=== PATIENT | male | born 1955 | race Caucasian/White ===

== ENCOUNTER 2024-01-12 12:15 | Inpatient (IN) | payer MEDICARE, OTHER, SELFPAY ==
[2024-01-12] VITALS (7 sets, daily range): BP systolic 106–166; BP diastolic 60–93; BMI 32.2
--- NOTE | 2024-01-12 09:38 | ED.GENMED ---
History of Present Illness
General
Chief Complaint: Musculo-Skeletal Complaint
Time Seen by Provider: 01/12/24 08:54
History of Present Illness
History of Present Illness:
Patient is a 68-year-old male with past medical history of asthma, tobacco use, hyperlipidemia, GERD, diabetes mellitus on insulin, and history of non-Hodgkin's lymphoma, here today for evaluation of an abnormal wound he has had along his left fifth
toe. He was seen by his flask fitter Dr. Arciniega more recently there was concern for osteomyelitis and they ultimately directed him to the emergency department for IV antibiotics, workup, and surgery. Patient has had no fevers. No drainage noted. He
has been able to ambulate. He has been n.p.o. since midnight.
Past History
Past History
ED Past Medical History: GERD, HTN, Hypercholesterolemia and NIDDM
Social History
Tobacco: Non-smoker
Personal:
Living: with family
Employment: Employed
Review of Systems
Review of Systems
All Other Systems: ROS reviewed and negative except as documented in HPI and ROS
Phy Exam
Physical Exam
Physical Exam:
GENERAL: Alert , in no apparent distress
EYE: pupils equal and reactive
NECK: Supple
NEUROLOGICAL: Alert and oriented, no focal neuro deficits
SKIN: Warm and dry, skin intact.
MUSCULOSKELETAL: Deep ulcerated mildly tender mildly erythematous wound along the dorsal aspect of the middle of the left fifth toe, there is no drainage noted, pulses not palpable but patient reports that this is chronic, extremity is normal in
temperature
PSYCH: Normal and appropriate interaction.
Course
Orders/Labs/Results
Orders:
Orders
01/12/24 09:41
CRP [C-Reactive Protein] Urgent
Complete Blood Count/With Diff Urgent
Comprehensive Metabolic Panel Urgent
ESR [Erythrocyte Sed Rate] Urgent
Lactic Acid Urgent
CR Foot - Left Min 3 Views Urgent
Comment:
Reason For Exam: 5th toe wound, osteo
01/12/24 09:45
Blood Culture Q30M
MADDY Source: Blood/Venous
Specimen Description:
01/12/24 09:50
Piperacillin/Tazo 3.375 Gram [Zosyn] 3.375 gram in 50 ml IV NOW
01/12/24 10:15
Blood Culture Q30M
MADDY Source: Blood/Venous
Specimen Description:
Vital Signs
Initial and Last Documented VS:
Initial Vital Signs
Temp Pulse Resp BP Pulse Ox
98.1 F 78 16 166/93 97
01/12/24 07:53 01/12/24 07:53 01/12/24 07:53 01/12/24 07:53 01/12/24 07:53
Last Documented Vital Signs
Temp Pulse Resp BP Pulse Ox
98.1 F 78 16 166/93 97
01/12/24 07:53 01/12/24 07:53 01/12/24 07:53 01/12/24 07:53 01/12/24 07:53
MDM/Problems Addressed
Differential Diagnosis Includes:
Patient is a 68-year-old male with past medical history of asthma, tobacco use, hyperlipidemia, GERD, diabetes mellitus on insulin, and history of non-Hodgkin's lymphoma, here today for evaluation of an abnormal wound he has had along his left fifth
toe. Overall, patient appears very well. Vital signs remarkable for a mildly elevated blood pressure. Physical examination described above. On examination the patient has a deep ulcerated mildly tender mildly erythematous wound along the dorsal
aspect of the middle of the left fifth toe. There is no drainage noted. Pulses not palpable but patient reports that this is chronic. Extremity is normal in temperature. We will consult podiatry, Dr. Arciniega. Will initiate workup and provide IV
antibiotics. Plan for admission. NPO.
01/12/2024 10:09: Case discussed with podiatry, Dr. Arciniega. Plan for operative intervention today. NPO. Will provide antibiotics with Zosyn. Case discussed with hospitalist, Dr. Suh.
*Critical Care Note
Total Time (30-74mins, 75-104mins- exclusive of procedures): Not Applicable
ED Attending Note
-
Portions of this chart may have been created with voice recognition software.� Occasional wrong word or��sound alike� substitutions may have occurred due to the inherent limitations of voice recognition software.
Discharge Plan
Departure
Patient Disposition: Admit
Date of Disposition: 01/12/24
Time of Disposition: 09:52
Admit to: Med/Surg
Admit to doctor: Dr. Suh
Presentation/result/management discussed w/ accepting MD/DO: Hospitalist
Patient with high blood pressure during this ER visit?: Yes
Condition: Fair
Covid-19: Not Applicable
Discharge Problem:
Open wound of fifth toe of left foot
Prescriptions:
No Action
multivitamin 1 EACH tablet
1 ea PO DAILY
aspirin 81 MG tablet,chewable
81 mg PO DAILY
esomeprazole magnesium [Nexium] 20 MG capsule,delayed release(DR/EC)
20 mg PO DAILYPRN PRN (Reason: GERD)
Eylea 2 MG/0.05 ML syringe
2 mg intravitreal Q8W
Jardiance 25 MG tablet
25 mg PO DAILY
cyclosporine [Restasis] 10 DROPS dropperette
1 drp BOTH EYES DAILY
rosuvastatin 10 MG tablet
20 mg PO QPM
losartan 50 mg Tablet
50 mg PO QPM
ketoconazole 2 % Shampoo
1 applic TOPICAL TUFR
tamsulosin [Flomax] 0.4 mg Capsule
0.4 mg PO DAILY
calcium polycarbophil [FiberCon] 625 mg Tablet
625 mg PO DAILY
docusate sodium [Colace] 100 mg Capsule
100 mg PO DAILY
Santyl 250 unit/gram Ointment
1 applic TOPICAL DAILY
finasteride 5 mg Tablet
5 mg PO DAILY
amoxicillin-pot clavulanate [Augmentin] 875-125 mg Tablet
1 tab PO BID
ICaps AREDS 4,296 mcg-226 mg-90 mg Capsule
1 cap PO DAILY
Patient Own Insulin Pump
0 unit SC .VIA HUMALOG
Referrals:
Piter Duffy MD [Family Provider] -
Interventions
Interventions:
*Risk Screen - Suicide Last Done: 01/12/24 07:54
*Neglect/Abuse Screening Last Done: 01/12/24 07:54
Discharge Date and Time
Print Language: TURKMEN
[2024-01-12 10:17] LABS: % Eosinophils 2.5 % (0-6); % Immature Granulocytes 0.6 % (0-0.5); % Lymphocytes 10.5 % (20.5-51.1); % Monocytes 7.3 % (1.7-9.3); % Neutrophils 78.1 % (42.2-75.2); Absolute Basophils 0.1 10^3/uL (0-0.2); Absolute Eosinophils 0.2 10^3/uL (0-0.7); Absolute Lymphocytes 0.8 10^3/uL (1.2-3.4); Absolute Monocytes 0.5 10^3/uL (0.1-0.6); Absolute Neutrophils 5.7 10^3/uL (1.4-6.5); Hematocrit 46.6 % (39.0-52.0); Hemoglobin 16.6 g/dL (13.0-18.0); Mean Corp Hgb Conc. 35.6 g/dL (33.0-37.0); Mean Corpuscular Hgb 33.9 pg (27.0-31.0); Mean Corpuscular Volume 95.3 fL (80.0-94.0); Mean Platelet Volume 9.6 fL (7.4-10.4); Nucleated Red Blood Cells % 0 % (-); Platelet Count 214 10^3/uL (130-400); Red Blood Cell Count 4.89 10^6/uL (4.70-6.10); Red Cell Dist. Width 12.2 % (11.5-14.5); White Blood Cell Count 7.3 10^3/uL (4.8-10.8)
[2024-01-12 10:34] LABS: Erythrocyte Sed Rate 20 mm/hour (0-20)
[2024-01-12 10:46] LABS: ALT (SGPT) 39 U/L (0-50); AST (SGOT) 35 U/L (17-59); Albumin 4.5 g/dl (3.5-5.0); Alkaline Phosphatase 90 U/L (38-126); Blood Urea Nitrogen 32 mg/dl (9-20); Calcium 9.5 mg/dl (8.4-10.2); Carbon Dioxide 24 mmol/L (22-30); Chloride 106 mmol/L (98-107); Glucose 183 mg/dl (70-99); Potassium 4.7 mmol/L (3.5-5.1); Sodium 142 mmol/L (135-145); Total Bilirubin 0.5 mg/dl (0.2-1.3); Total Protein 7.2 g/dl (6.3-8.2); eGFR > 60.00
[2024-01-12] MEDS: ZOSYN 50 IV ×3 (10:49→21:34)
--- NOTE | 2024-01-12 11:09 | W.PN.HOSP.TC ---
Today's Communication/Plan
-
for podiatric intervention on infected ulcer
Assessment / Plan
Assessment / Plan
Left foot 5th toe with ulcer and probable osteomyelitis
Diabetes (Type 2 IDDM)
onset age 41, IDDM since age 50
Hx of melanoma
2001, resected, [facility]
Bilateral peripheral neuropathy
Recent Rt hallux ulcer, now resolved
BPH
Tegaderm allergy
Hx of cigs
1ppd, quitting 8 yrs ago
P:reviewed with Dr. Vincent Arciniega
ID and Vasc consults
empiric Zosyn
Have requested copy of Bact C&S report be obtained
see dictated note
full code
Anticipated Discharge: > 48 hours
Subjective/Interval History
-
Date of Service: January 12, 2024
left 5th toes ulcer noted 8 days ago with evidence of infection
Objective Data
-
Labs:
Laboratory Results
01/12/24
10:08
WBC 7.3
Hgb 16.6
Hct 46.6
Plt Count 214
Sodium 142
Potassium 4.7
Chloride 106
Carbon Dioxide 24
BUN 32 H
Creatinine 1.2
Glucose 183 H
Calcium 9.5
Total Bilirubin 0.5
AST 35
ALT 39
Alkaline Phosphatase 90
Vital Signs:
Vital Signs
Temp Pulse Resp BP Pulse Ox
98.1 F 78 16 166/93 97
01/12/24 07:53 01/12/24 07:53 01/12/24 07:53 01/12/24 07:53 01/12/24 07:53
Review of Systems
-
History Source: Patient and Physician
Constitutional: Denies Fever
EENT: Reports No Symptoms Reported
Respiratory: Reports No Symptoms
Cardiac: Reports No Symptoms
Abdomen/GI: Reports No Symptoms
Musculoskeletal: Reports Other (bilateral peripheral neuropathy); Denies Joint Pain
Physical Exam
-
General: Well Developed, Well Nourished and No Apparent Distress
HEENT: Normocephalic, Atraumatic and Moist Mucous Membranes
Respiratory: Clear to Auscultation; Negative Wheezes, Rales or Rhonchi
Cardiac: Regular Rhythm and S1/S2
GI: Soft, Nontender and Nondistended
Musculoskeletal: No Clubbing, No Cyanosis, No Edema and Other (left 5th toe with ulcer, redness of toe, extending into distal dorsal foot. Peripheral pulses of feet not appreciated)
--- NOTE | 2024-01-12 12:14 | CON.VAS ---
Consultation
Consultation Request
Date/Time Consultation Performed: 01/12/24 1210
Requesting Provider: Seferino Kim MD
Performing Provider: Sugar Carlson NP-C for Junior Bennett MD
Reason for Consultation: Left fifth digit wound
Medical History
-
Chief Complaint: Left fifth digit wound concerning for osteomyelitis
History of Present Illness:
This is a 68-year-old male with significant past medical history for asthma, GERD, hypertension, hypercholesterolemia, diabetes, and non-Hodgkin's lymphoma who presents to [facility] ED at the discretion of his photographic hand developer Dr. Arciniega for ongoing left
foot fifth digit wound. Patient is unclear how wound developed he does endorse that he is a diabetic, but did initially notice it roughly 8 days ago. He followed up with his outpatient photographic hand developer Dr. Tito Arciniega, earlier in the week who
recommended urgent evaluation in the ED. However, at the time patient wished to delay evaluation until after Thanksgiving leading him to present to the ED today (01/12/2024). Patient denies fever, chills, nausea, vomiting, cough, malodorous
discharge and wound, and/or spreading of erythema. He denies prior vascular surgical intervention, or seeing a vascular surgeon. Denies claudication or rest pain. Denies recent trauma or illness. However, does endorse upcoming scheduled ERCP for
suspected pancreatic cyst on 02/05/2024.
Past Medical History
Past Medical History: Asthma, GERD, HTN, Hypercholesterolemia, IDDM and Other (Non-Hodgkin's lymphoma, pancreatic cyst)
Social History
Tobacco: Former Smoker (Former smoker for roughly 37 years, quit in 2014)
Personal:
Living: With Family
Employment: Employed
Allergies / Home Medications
Allergy/AdvReac Type Severity Reaction Status Date / Time
No Known Allergies Allergy Verified 03/09/22 13:29
�Medication �Instructions �Recorded �Confirmed �Type
aflibercept 2 mg/0.05 mL 2 mg intravitreal Q8W 03/03/20 01/12/24 History
intravitreal syringe (Eylea)
aspirin 81 mg chewable tablet 81 mg PO DAILY 03/03/20 01/12/24 History
cyclosporine 0.05 % eye drops in a 1 drp BOTH EYES DAILY 03/03/20 01/12/24 History
dropperette (Restasis)
empagliflozin 25 mg tablet 25 mg PO DAILY 03/03/20 01/12/24 History
(Jardiance)
esomeprazole magnesium 20 mg 20 mg PO DAILYPRN PRN GERD 03/03/20 01/12/24 History
capsule,delayed release (Nexium)
multivitamin 1 ea PO DAILY 03/03/20 01/12/24 History
rosuvastatin 10 mg tablet 20 mg PO QPM 03/03/20 01/12/24 History
Patient Own Insulin Pump 0 unit SC .VIA HUMALOG 01/12/24 01/12/24 History
amoxicillin 875 mg-potassium 1 tab PO BID 01/12/24 01/12/24 History
clavulanate 125 mg tablet
calcium polycarbophil 625 mg 625 mg PO DAILY 01/12/24 01/12/24 History
tablet (FiberCon)
collagenase clostridium histo. 250 1 applic topical DAILY LEFT 01/12/24 01/12/24 History
unit/gram topical ointment (Santyl) INFECTED TOES
docusate sodium 100 mg capsule 100 mg PO DAILY 01/12/24 01/12/24 History
(Colace)
finasteride 5 mg tablet 5 mg PO DAILY 01/12/24 01/12/24 History
ketoconazole 2 % shampoo 1 applic topical TUFR 01/12/24 01/12/24 History
losartan 50 mg tablet 50 mg PO QPM 01/12/24 01/12/24 History
tamsulosin 0.4 mg capsule (Flomax) 0.4 mg PO DAILY 01/12/24 01/12/24 History
vitamins A,C,A-wrvb-rmuafi 4,296 1 cap PO DAILY 01/12/24 01/12/24 History
mcg-226 mg-90 mg capsule
Review of Systems
-
History Source: Patient
Constitutional: Reports No Symptoms
EENT: Reports No Symptoms
Respiratory: Reports No Symptoms
Cardiac: Reports No Symptoms
Vascular: Denies Leg Pain / Claudication
Abdomen/GI: Reports No Symptoms
: Reports No Symptoms
Musculoskeletal: Reports No Symptoms
Skin: Reports Other (Left fifth digit infection with redness, swelling, and pain)
Neurological: Reports No Symptoms
Endocrine: Reports No Symptoms
Physical Exam
Vital Signs
Temp Pulse Resp BP Pulse Ox
98.1 F 78 16 166/93 97
01/12/24 07:53 01/12/24 07:53 01/12/24 07:53 01/12/24 07:53 01/12/24 07:53
Lab Results
01/12/24 10:08
01/12/24 10:08
Physical Exam
General: No Apparent Distress
HEENT: Normocephalic, Anicteric and Atraumatic
Respiratory: Non Labored Respirations
Cardiac: Negative JVD
GI: Soft, Non Tender and Non Distended
Musculoskeletal: No Edema
Skin: Warm and Other (Left fifth digit with erythema, and area of open skin, dry, non-malodorous, no evidence of purulent drainage, see picture in HPI)
Neuro: AO x 3
Pulses: Bilateral Femoral: +2, Left Dorsalis Pedis: Doppler, Right Dorsalis Pedis: +1, Bilateral Posterior Tibial: Doppler and Right Posterior Tibial: +1
Assessment / Plan
-
Assessment: 68-year-old male with roughly 8 days of infection at left foot fifth digit
Plan:
Suspect some degree of peripheral arterial disease given right lower extremity DP and PT palpable and left lower extremity distal pulses nonpalpable. Arterial duplex with IVANIA/TBI pending, if abnormal likely next step will be left lower extremity
angiogram with possible intervention. Will provide surgical plan pending results of noninvasive studies.
HPI, physical exam, and plan reviewed with attending Dr. Junior Bennett who agrees with plan.
--- NOTE | 2024-01-12 13:06 | CON.ID ---
Consultation
-
Date/Time Consultation Requested: 01/12/24 11:38
Date/Time Consultation Performed: 01/12/24 13:08
Requesting Provider: Dr Suh
Performing Provider: Dr Bowen
Reason for Consultation: osteomyelitis of left 5th toe
Chief Complaint / Past History
Chief Complaint
wound on left 5th toe
History of Present Illness
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 No fevers, chills or drainage.
Has a wound along left 5th toe x8 days, ulcer is deep, with erythema, no drainage. Wound began as a hammer-toe rubbing against foot - he couldnt feel it with neuropathy. He has been on Augmentin outpatient.
Since arrival here he has been afebrile, bp stable, wbc 7.3, hgb 16, plt 214, L shift is noted, na 142, cr 1.2 baseline 0.9, lactic acid 1.0, crp 17, foot xr: 'Fracture of the distal aspect of the proximal fifth phalanx, possibly a pathologic
fracture given suspicious for underlying osteomyelitis though no gross erosions appreciated.' IVANIA: severe stenosis of L popliteal artery, vascular surgery has been consulted, patient is on zosyn, ID is consulted for assistance with management.
Past History
Additional Past Medical History:
GERD, HTN, Hypercholesterolemia and NIDDM
Past Surgical History: None
Allergy History:
No Known Allergies Allergy (Verified 03/09/22 13:29)
Medications Reviewed: Yes
Current Antibiotics:
zosyn
Social History
Tobacco: Non-Smoker
Personal:
Living: With Family
Family History
Family History: Not Pertinent
Review of Systems
Review of Systems
General: Negative Fever or Chills
All systems: All other systems were reviewed and were negative
Vital Signs
Temp Pulse Resp BP Pulse Ox
98.1 F 78 16 166/93 97
01/12/24 07:53 01/12/24 07:53 01/12/24 07:53 01/12/24 07:53 01/12/24 07:53
Physical Exam
Physical Exam
Constitutional: No Acute Distress
Cardiovascular: Regular Rate and S1/S2; Negative Murmur or Rub
Pulmonary: Clear and Symmetric; Negative Wheezes, Rales or Rhonchi
Gastrointestinal: Soft, Non Tender, Non Distended and Normal Bowel Sounds
Skin: Warm and Dry; Negative Rash or Jaundice
Lab / Diagnostic Study Results
01/12/24 10:08
01/12/24 10:08
Abs Immat Gran (auto) 0.0 10^3/uL (0-0.05) 01/12/24 10:08
Absolute Neuts (auto) 5.7 10^3/uL (1.4-6.5) 01/12/24 10:08
Absolute Lymphs (auto) 0.8 10^3/uL (1.2-3.4) L 01/12/24 10:08
Absolute Monos (auto) 0.5 10^3/uL (0.1-0.6) 01/12/24 10:08
Absolute Basos (auto) 0.1 10^3/uL (0-0.2) 01/12/24 10:08
Immature Gran % 0.6 % (0-0.5) H 01/12/24 10:08
Neutrophils % 78.1 % (42.2-75.2) H 01/12/24 10:08
Lymphocytes % 10.5 % (20.5-51.1) L 01/12/24 10:08
Monocytes % 7.3 % (1.7-9.3) 01/12/24 10:08
Eosinophils % 2.5 % (0-6) 01/12/24 10:08
Basophils % 1.0 % (0-2) 01/12/24 10:08
ESR 20 mm/hour (0-20) 01/12/24 10:08
Lactic Acid 1.0 mmol/L (0.7-2.0) 01/12/24 10:08
C-Reactive Protein 17.60 mg/L (0.0-10.00) H 01/12/24 10:08
Microbiology Results
Micro:
01/12/24 10:49 Blood Culture - Pending
Blood/Venous
01/12/24 10:08 Blood Culture - Pending
Blood/Venous
Assessment / Plan
Diabetic Foot Infection
Possible Osteomyelitis
DM2 on insulin
PAD
- blood cultures x2 in progress
- s/p resection of the joint - grossly infected tissue sent for culture, bone sent for path
- a1c - recommend tight glucose control
- IVANIA with possible popliteal stenosis - for vascular surgery evaluation
- agree with zosyn
- follow clinically
Care Review
Plan reviewed with: Physician (Dr Arciniega)
[2024-01-12 13:49] LABS: Glucose - Point of Care 179 mg/dl (70-99)
--- NOTE | 2024-01-12 13:51 | W.PN.UPDATE ---
Update Note
Progress Note Update
PT SEEN IN RR
No pain
sleeping,. cft intact
dressing cdi
a/p s/p resection bone prox phal/middle phal---excsional debridement ulcer--stable
wound cleaned
path sent of bone, prox phal/mid phal
cont abx
minimal bleeding in Or, vasc consult ordered,
appreciate all input
wb on heel in sx shoe
will follow
[2024-01-12 16:26] LABS: Glucose - Point of Care 250 mg/dl (70-99)
[2024-01-12 16:26] LABS: Urine Albumin Trace (Neg - Trace); Urine Bilirubin Negative (Negative); Urine Character Clear (Clear); Urine Color Yellow; Urine Glucose 3+ (Negative); Urine Ketone Negative (Negative); Urine Leukocyte Negative (Negative); Urine Nitrite Negative (Negative); Urine Occult Blood Negative (Negative); Urine Specific Gravity 1.015 (<1.030); Urine Urobilinogen Negative (Neg - 1+)
--- NOTE | 2024-01-12 17:43 | PTCARENOTE ---
Pt admitted to rm 317-1 from PACU. VSS, denies pain, ambulated to bed from stretcher upon admission. Dressing intact to left foot, orders to not remove dressing. Patient instructed on POC, room and call suresh. Verbalized understanding of all
instructions. Med list reviewed - patient's concerns clarified with Dr. Suh (pt's Jardiance had been autosubstituted for Farxiga) - Farxiga put on hold and patient instructed to bring in home jardiance. Insulin pump applied by patient and set up.
Dexcom in place as well - patient informed we will continue to do accuchecks while in hospital.
[2024-01-12] MEDS: PATIENT'S OWN INSULIN PUMP 6 UNITS SC (18:27)
[2024-01-12] MEDS: COZAAR 50 MG PO (18:27)
[2024-01-12] MEDS: CRESTOR 20 MG PO (18:27)
--- NOTE | 2024-01-12 18:58 | PTCARENOTE ---
basal rate of insulin pump 2.6 units from 5AM-9AM, 1.4 units from 9AM-midnight, 1.5 units midnight -5AM
[2024-01-12] MEDS: HEPARIN 5000 UNITS SC (21:34)
[2024-01-12 21:46] LABS: Glucose - Point of Care 304 mg/dl (70-99)
[2024-01-12] MEDS: PATIENT'S OWN INSULIN PUMP 4 UNITS SC (21:46)
[2024-01-13] MEDS: ZOSYN 50 IV ×2 (04:34→10:24)
[2024-01-13 06:00] VITALS: BMI 32.1
[2024-01-13 07:10] VITALS: BP 125/55
[2024-01-13 07:49] LABS: Hemoglobin 14.5 g/dL (13.0-18.0); Mean Corp Hgb Conc. 34.5 g/dL (33.0-37.0); Mean Corpuscular Hgb 33.1 pg (27.0-31.0); Mean Corpuscular Volume 95.9 fL (80.0-94.0); Platelet Count 223 10^3/uL (130-400); Red Blood Cell Count 4.38 10^6/uL (4.70-6.10); Red Cell Dist. Width 12.1 % (11.5-14.5); White Blood Cell Count 9.2 10^3/uL (4.8-10.8)
[2024-01-13 08:07] LABS: Glucose - Point of Care 136 mg/dl (70-99)
--- NOTE | 2024-01-13 08:22 | W.PN.VS ---
Today's Communication / Plan
-
Seen and assessed with Dr. Bennett
Assessment/Plan
-
Osteomyelitis left fifth toe
Plan:
-Arteriogram Monday
-N.p.o. for Monday morning
Subjective Data
-
Date of Service: January 13, 2024
Patient seen at bedside today with Dr. Bennett. No events overnight.
Objective Data
-
Vital Signs
Temp Pulse Resp BP Pulse Ox
97.4 F 71 18 125/55 97
01/13/24 07:10 01/13/24 07:10 01/13/24 07:10 01/13/24 07:10 01/13/24 07:10
Intake and Output
01/12/24 01/13/24 01/14/24
06:59 06:59 06:59
Other:
Number of approximated MODERATE 1
amounts of urine
Lab Results
01/13/24 06:39
Calcium 9.5 mg/dl (8.4-10.2) 01/12/24 10:08
Total Bilirubin 0.5 mg/dl (0.2-1.3) 01/12/24 10:08
AST 35 U/L (17-59) 01/12/24 10:08
ALT 39 U/L (0-50) 01/12/24 10:08
Alkaline Phosphatase 90 U/L (38-126) 01/12/24 10:08
Total Protein 7.2 g/dl (6.3-8.2) 01/12/24 10:08
Albumin 4.5 g/dl (3.5-5.0) 01/12/24 10:08
Physical Exam
-
AAOx3
No tachypnea
No tachycardia
Abdomen soft
Foot site wrapped in operative dressing from surgical procedure with Dr. Arciniega
[2024-01-13 08:23] LABS: Blood Urea Nitrogen 34 mg/dl (9-20); Calcium 8.9 mg/dl (8.4-10.2); Carbon Dioxide 25 mmol/L (22-30); Chloride 104 mmol/L (98-107); Estimated Creatinine Clearance 57 ml/min; Glucose 148 mg/dl (70-99); HDL Cholesterol 45 mg/dl; LDL Cholesterol, Calculated 67 mg/dl; Potassium 4.5 mmol/L (3.5-5.1); Sodium 139 mmol/L (135-145); Total Cholesterol 133 mg/dl (50-199); Triglyceride 109 mg/dl (10-149); Very Low Density Lipoprotein 21 mg/dl (0-30); eGFR 55.09
[2024-01-13] MEDS: PROSCAR 5 MG PO (08:44)
[2024-01-13] MEDS: FLOMAX 0.4 MG PO (08:44)
[2024-01-13] MEDS: HEPARIN 5000 UNITS SC ×2 (08:44→21:56)
[2024-01-13] MEDS: LOW STRENGTH ASPIRIN 81 MG PO (08:44)
[2024-01-13] MEDS: COLACE 100 MG PO (08:44)
[2024-01-13] MEDS: OCUVITE SOFTGEL 1 CAP PO (08:44)
[2024-01-13] MEDS: THERAGRAN 1 TABLET PO (08:44)
[2024-01-13] MEDS: FIBERCON 625 MG PO (08:44)
[2024-01-13] MEDS: RESTASIS 0.05% OPHTHALMIC EMULSION 1 DROPS BOTH EYES (08:45)
--- NOTE | 2024-01-13 09:49 | W.PN.UPDATE ---
Update Note
Progress Note Update
pt seen at bedside post op day 1
no pain
no f/c/ns
dressing cdi with some blood through bandages
cft slightly decreased to 5th toe, toe is warm, supple skin
wbc 9.3
C&S prelim no wbc, no organisms
C&S from office in chart, only prelim
a/p s/p excisional debridement bone/wound left foot 5th toe---stable
PAD,agram for monday
explained to pt if perfusion restored, surgical cure/amp toe would be beneficial
pt understands now why I wanted him to come in to hospital days ago
packing pulled, slight bleeding
bandages applied
sx shoe for wb
will watch toe, if shows increased signs of devitalization, can amp after revasc
cont abx\\
appreciate all input
--- NOTE | 2024-01-13 09:57 | W.PN.HOSP.TC ---
Today's Communication/Plan
-
Arteriogram of rt foot for Monday
continue IV abx
Assessment / Plan
Assessment / Plan
Left foot 5th toe with ulcer and probable osteomyelitis
underwent surgical intervention 01/11
Diabetes (Type 2 IDDM)
onset age 41, IDDM since age 50
ASPVD
consulted Vasc Surg. Input appreciated
for planned arteriogram on Monday
Underwent Arterial Doppler: 1. Right ankle-brachial index remains within the normal range at 1.11. The right toe brachial index is normal at 0.85. No flow-limiting right lower extremity arterial stenosis is identified.
2. Left ankle brachial index of 0.65 is significantly decreased from 1.03 prior. The toe brachial index is 0.35, decreased from 0.66 prior. There is a severe stenosis of the left popliteal artery with associated dampening of the distal waveforms.
Hx of melanoma
2001, resected, [facility]
Bilateral peripheral neuropathy
Recent Rt hallux ulcer, now resolved
BPH
Tegaderm allergy
Hx of cigs
1ppd, quitting 8 yrs ago
P:reviewed with Dr. Vincent Arciniega
ID and Vasc consults appreciated
empiric Zosyn
full code
Anticipated Discharge: > 48 hours
Subjective/Interval History
-
Date of Service: January 13, 2024
Awake, alert, conversant
Objective Data
-
Labs:
Laboratory Results
01/13/24
06:39
WBC 9.2
Hgb 14.5
Hct 42.0
Plt Count 223
Sodium 139
Potassium 4.5
Chloride 104
Carbon Dioxide 25
BUN 34 H
Creatinine 1.4 H
Glucose 148 H
Calcium 8.9
Vital Signs:
Vital Signs
Temp Pulse Resp BP Pulse Ox
97.4 F 71 18 125/55 97
01/13/24 07:10 01/13/24 07:10 01/13/24 07:10 01/13/24 07:10 01/13/24 07:10
Review of Systems
-
History Source: Patient and Physician
Constitutional: Denies Fever
EENT: Reports No Symptoms Reported
Respiratory: Reports No Symptoms
Cardiac: Reports No Symptoms
Abdomen/GI: Reports No Symptoms
Musculoskeletal: Reports Other (bilateral peripheral neuropathy); Denies Joint Pain
Physical Exam
-
General: Well Developed, Well Nourished and No Apparent Distress
HEENT: Normocephalic, Atraumatic and Moist Mucous Membranes
Respiratory: Clear to Auscultation; Negative Wheezes, Rales or Rhonchi
Cardiac: Regular Rhythm and S1/S2
GI: Soft, Nontender and Nondistended
Musculoskeletal: No Clubbing, No Cyanosis, No Edema and Other (left 5th toe with ulcer, redness of toe, extending into distal dorsal foot. Peripheral pulses of feet not appreciated on admission, foot now surgically wrapped)
--- NOTE | 2024-01-13 09:59 | CM ---
CM following re: discharge planning.
Reviewed pt's chart, met with pt.
Pt is a 68 year old male, admitted with primary dx of Osteomyelitis left 5th toe, s/p excisional debridement bone/wound left foot 5th toe. Per Vascular surgery, OR Monday for Arteriogram
Pt reports he lives alone in a 2SH, 2 steps to enter, has a cat, has 3 supportive children, supportive SO for 10 years. Pt reports his PCP is his POA. 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
VN in the past for IV antibiotic management.
PCP: Piter Duffy III
Pharmacy: [facility].
D/C plan: home with anticipated no needs.
CM will follow with discharge plan updates as hospitalization progresses
[2024-01-13] MEDS: PATIENT'S OWN INSULIN PUMP 1 UNITS SC (10:53)
[2024-01-13 11:02] LABS: Glycohemoglobin (HgbA1c) 8.8 % (4.0-5.6)
--- NOTE | 2024-01-13 12:16 | W.PN.ID1 ---
Date of Service
Date of Service: January 13, 2024
Today's Communication
mrsa screen
c/w zosyn
Assessment / Plan
Diabetic Foot Infection
Possible Osteomyelitis
DM2 on insulin - poor control
PAD
- 01/03 outpatient wound culture on paper chart: moderate PSA, no sensi; gram stain mod GNR and rare GPC in pairs/clusters
- blood cultures x2 in progress
- MRSA nasal screen today
- s/p resection of the joint - grossly infected tissue sent for culture in progress, bone sent for path
- a1c 8.8 - recommend tight glucose control
- for arteriogram monday
- agree with zosyn
- follow clinically
Chief Complaint
-: Other (diabetic foot infection)
Subjective / Review of Systems
afebrile
bp stable
outpatient cultures on paper chart
Vital Signs / Physical Exam
Vital Signs
Vital Signs
Temp Pulse Resp BP Pulse Ox
97.4 F 71 18 125/55 97
01/13/24 07:10 01/13/24 07:10 01/13/24 07:10 01/13/24 07:10 01/13/24 07:10
Physical Exam
Constitutional: No Acute Distress
Cardiovascular: Regular Rate and S1/S2; Negative Murmur or Rub
Pulmonary: Clear and Symmetric; Negative Wheezes or Rales
Gastrointestinal: Soft, Non Tender, Non Distended and Normal Bowel Sounds
Skin: Warm and Dry; Negative Rash or Jaundice
Wound: Other (dressing clean, dry, intact)
Objective Data
Lab Data
Lab Results
01/13/24 06:39
01/13/24 06:39
ESR 20 mm/hour (0-20) 01/12/24 10:08
Estimated Creat Clear 57 ml/min 01/13/24 06:39
Lactic Acid 1.0 mmol/L (0.7-2.0) 01/12/24 10:08
Total Bilirubin 0.5 mg/dl (0.2-1.3) 01/12/24 10:08
AST 35 U/L (17-59) 01/12/24 10:08
ALT 39 U/L (0-50) 01/12/24 10:08
Alkaline Phosphatase 90 U/L (38-126) 01/12/24 10:08
C-Reactive Protein 17.60 mg/L (0.0-10.00) H 01/12/24 10:08
Most recent labs reviewed.
Micro Results:
01/12/24 10:49 Blood Culture - Preliminary
Blood/Venous No Growth in 24 hours- Final report to follow
01/12/24 10:08 Blood Culture - Preliminary
Blood/Venous No Growth in 24 hours- Final report to follow
01/12/24 14:00 Anaerobic Culture - Preliminary
Toe Culture pending. Anaerobic cultures are examined after 3
days incubation. Additional information to follow.
01/12/24 14:00 Wound Culture - Preliminary
Toe Gram Stain - Preliminary
01/12/24 14:00 Tissue Culture - Preliminary
Bone Gram Stain - Preliminary
Care Review
Plan reviewed with: Physician (Dr Hendrickson - outpatient cultures )
[2024-01-13 12:20] LABS: Glucose - Point of Care 149 mg/dl (70-99)
[2024-01-13] MEDS: ZOSYN 100 IV ×2 (14:27→21:56)
[2024-01-13] MEDS: PATIENT'S OWN INSULIN PUMP 9 UNITS SC (14:45)
[2024-01-13 15:07] VITALS: BP 129/61
[2024-01-13 16:38] LABS: Glucose - Point of Care 169 mg/dl (70-99)
[2024-01-13] MEDS: CRESTOR 20 MG PO (17:49)
[2024-01-13] MEDS: COZAAR 50 MG PO (17:49)
[2024-01-13] MEDS: PATIENT'S OWN INSULIN PUMP 6.95 UNITS SC (20:57)
[2024-01-13 21:28] LABS: Glucose - Point of Care 214 mg/dl (70-99)
--- NOTE | 2024-01-13 22:22 | VATNOTE ---
PT REQUESTED ASSESSMENT OF IV SITE IN LW. PT REPORTS HX OF SENSITIVITY TO TSM. SITE RD WITH SKIN PEP PRIOR TO STANDARD IV SITE DRSG. PT REPORTS IMMEDIATE RELIEF. VAT TO MONITOR.
[2024-01-13 23:00] VITALS: BP 124/62
[2024-01-13] MEDS: PATIENT'S OWN INSULIN PUMP SC (23:49)
[2024-01-14] MEDS: MORPHINE SULFATE 2 MG IV ×2 (00:04→22:11)
[2024-01-14 00:18] VITALS: BP 124/62
[2024-01-14] MEDS: ZOSYN 100 IV ×4 (02:56→20:01)
--- NOTE | 2024-01-14 07:12 | W.PN.VS ---
Today's Communication / Plan
-
plan for OR khushi am
NPO post midnight
Assessment/Plan
-
Osteomyelitis left fifth toe
Plan:
-Arteriogram Monday
-N.p.o. for Monday
Subjective Data
-
Date of Service: January 14, 2024
Objective Data
-
Vital Signs
Temp Pulse Resp BP Pulse Ox
98.2 F 67 18 124/62 97
01/13/24 23:00 01/13/24 23:00 01/13/24 23:00 01/13/24 23:00 01/13/24 23:00
Intake and Output
01/13/24 01/14/24 01/15/24
06:59 06:59 06:59
Intake Total 1560 / 1560
Balance 1560 / 1560
Intake:
Oral fluids 1560 / 1560
Other:
Number of approximated MODERATE 1 4
amounts of urine
Calcium 8.9 mg/dl (8.4-10.2) 01/13/24 06:39
Total Bilirubin 0.5 mg/dl (0.2-1.3) 01/12/24 10:08
AST 35 U/L (17-59) 01/12/24 10:08
ALT 39 U/L (0-50) 01/12/24 10:08
Alkaline Phosphatase 90 U/L (38-126) 01/12/24 10:08
Total Protein 7.2 g/dl (6.3-8.2) 01/12/24 10:08
Albumin 4.5 g/dl (3.5-5.0) 01/12/24 10:08
[2024-01-14 07:30] VITALS: BP 137/69
[2024-01-14 07:51] LABS: Blood Urea Nitrogen 32 mg/dl (9-20); Calcium 8.6 mg/dl (8.4-10.2); Carbon Dioxide 22 mmol/L (22-30); Chloride 107 mmol/L (98-107); Estimated Creatinine Clearance 62 ml/min; Glucose 146 mg/dl (70-99); Potassium 4.4 mmol/L (3.5-5.1); Sodium 140 mmol/L (135-145); eGFR > 60.00
[2024-01-14 07:52] LABS: % Basophils 0.6 % (0-2); % Eosinophils 3.2 % (0-6); % Immature Granulocytes 0.4 % (0-0.5); % Lymphocytes 17.1 % (20.5-51.1); % Monocytes 7.7 % (1.7-9.3); Absolute Eosinophils 0.2 10^3/uL (0-0.7); Absolute Lymphocytes 1.2 10^3/uL (1.2-3.4); Absolute Monocytes 0.5 10^3/uL (0.1-0.6); Absolute Neutrophils 4.8 10^3/uL (1.4-6.5); Hematocrit 41.6 % (39.0-52.0); Hemoglobin 14.6 g/dL (13.0-18.0); Mean Corp Hgb Conc. 35.1 g/dL (33.0-37.0); Mean Platelet Volume 10.1 fL (7.4-10.4); Nucleated Red Blood Cells % 0 % (-); Platelet Count 209 10^3/uL (130-400); Red Blood Cell Count 4.29 10^6/uL (4.70-6.10); Red Cell Dist. Width 12.5 % (11.5-14.5); White Blood Cell Count 6.8 10^3/uL (4.8-10.8)
[2024-01-14 08:34] LABS: Glucose - Point of Care 175 mg/dl (70-99)
[2024-01-14] MEDS: PATIENT'S OWN INSULIN PUMP 3.75 UNITS SC (08:36)
[2024-01-14] MEDS: COLACE 100 MG PO (08:39)
[2024-01-14] MEDS: FLOMAX 0.4 MG PO (08:39)
[2024-01-14] MEDS: LOW STRENGTH ASPIRIN 81 MG PO (08:39)
[2024-01-14] MEDS: THERAGRAN 1 TABLET PO (08:39)
[2024-01-14] MEDS: FIBERCON 625 MG PO (08:39)
[2024-01-14] MEDS: PROSCAR 5 MG PO (08:39)
[2024-01-14] MEDS: RESTASIS 0.05% OPHTHALMIC EMULSION 1 DROPS BOTH EYES (08:40)
[2024-01-14] MEDS: OCUVITE SOFTGEL 1 CAP PO (08:40)
[2024-01-14] MEDS: HEPARIN 5000 UNITS SC ×2 (08:40→20:02)
--- NOTE | 2024-01-14 09:12 | W.PN.HOSP.TC ---
Addendum entered and electronically signed by Lamine Suh MD 01/14/24 17:21:
CKD3, IVF with planned angiogram with concern for dye load associated with renal issues
Original Note:
Today's Communication/Plan
-
Angiogram tomorrow
continue Zosyn
Assessment / Plan
Assessment / Plan
Left foot 5th toe with ulcer and probable osteomyelitis
underwent surgical intervention 01/11. Culturette was obtained from wound on 01/03 and sent to [facility]. Requested report that shows 2 organisms, 1 is pseudomonas the other appears to be Gm+C. Attempted to call lab today on their [phone] number
and recording states they are not open until Monday-Monday. Will need to call tomorrow for update on bacterial sensitivity. For now continue Zosyn
WBC 9.2-->6.8
Tissue Cx from 01/11 GnB, await identification
Diabetes (Type 2 IDDM)
onset age 41, IDDM since age 50
a1c 8.8%
glu 149-214
ASPVD
consulted Vasc Surg. Input appreciated
for planned arteriogram on Monday
Underwent Arterial Doppler: 1. Right ankle-brachial index remains within the normal range at 1.11. The right toe brachial index is normal at 0.85. No flow-limiting right lower extremity arterial stenosis is identified.
2. Left ankle brachial index of 0.65 is significantly decreased from 1.03 prior. The toe brachial index is 0.35, decreased from 0.66 prior. There is a severe stenosis of the left popliteal artery with associated dampening of the distal waveforms.
Hx of melanoma
2002, resected, [place]
Hx of Non Hodgkins Lymphoma
as per pt, JEREMIE
Bilateral peripheral neuropathy
Recent Rt hallux ulcer, now resolved
BPH
Tegaderm allergy
Hx of cigs
1ppd, quitting 8 yrs ago
Pancreatic 'Cyst' for scheduled ERCP in 1 month
P:reviewed with Dr. Vincent Arciniega
ID and Vasc consults appreciated
empiric Zosyn
full code
Anticipated Discharge: > 48 hours
Subjective/Interval History
-
Date of Service: January 14, 2024
Awake, alert, conversant
Objective Data
-
Labs:
Laboratory Results
01/14/24
06:46
WBC 6.8
Hgb 14.6
Hct 41.6
Plt Count 209
Sodium 140
Potassium 4.4
Chloride 107
Carbon Dioxide 22
BUN 32 H
Creatinine 1.3
Glucose 146 H
Calcium 8.6
Vital Signs:
Vital Signs
Temp Pulse Resp BP Pulse Ox
97.6 F 68 16 137/69 96
01/14/24 07:30 01/14/24 07:30 01/14/24 07:30 01/14/24 07:30 01/14/24 07:30
I&O
01/13/24 01/14/24 01/15/24
06:59 06:59 06:59
Intake Total 1560 / 1560
Balance 1560 / 1560
Review of Systems
-
History Source: Patient and Physician
Constitutional: Denies Fever
EENT: Reports No Symptoms Reported
Respiratory: Reports No Symptoms
Cardiac: Reports No Symptoms
Abdomen/GI: Reports No Symptoms
Musculoskeletal: Reports Other (bilateral peripheral neuropathy); Denies Joint Pain
Neuro: Reports Other (bilateral peripheral neuropathy, but can feel pain sensation at times)
Physical Exam
-
General: Well Developed, Well Nourished and No Apparent Distress
HEENT: Normocephalic, Atraumatic and Moist Mucous Membranes
Respiratory: Clear to Auscultation; Negative Wheezes, Rales or Rhonchi
Cardiac: Regular Rhythm and S1/S2
GI: Soft, Nontender and Nondistended
Musculoskeletal: No Clubbing, No Cyanosis, No Edema and Other (left 5th toe with ulcer, redness of toe, extending into distal dorsal foot. Peripheral pulses of feet not appreciated on admission, foot now surgically wrapped)
--- NOTE | 2024-01-14 10:39 | W.PN.UPDATE ---
Update Note
Progress Note Update
pt seen at bedside
Had pain last night in arch, none now
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
dressing cdi
vasc + pad, agram tomorrow, toe improved, warm, better cft and pink
derm suturs intact, packing pulled, no pus
no odor
path pending, C&s gram neg, pseudomonas wound and bone
a/p s/p excisional debridement bone /ulcer left 5th toe---stable, improved, toe warm, cft better
cont abx
agram tomorrow
[2024-01-14 11:48] LABS: Glucose - Point of Care 178 mg/dl (70-99)
[2024-01-14] MEDS: PATIENT'S OWN INSULIN PUMP 7.75 UNITS SC (14:35)
[2024-01-14 15:50] VITALS: BP 149/81
[2024-01-14] MEDS: PATIENT'S OWN INSULIN PUMP 5.2 UNITS SC (17:34)
[2024-01-14] MEDS: COZAAR 50 MG PO (17:36)
[2024-01-14] MEDS: CRESTOR 20 MG PO (17:36)
[2024-01-14 18:53] LABS: Glucose - Point of Care 153 mg/dl (70-99)
[2024-01-14 21:26] LABS: Glucose - Point of Care 252 mg/dl (70-99)
[2024-01-14 22:50] VITALS: BP 133/72
[2024-01-14] MEDS: PATIENT'S OWN INSULIN PUMP SC (23:32)
[2024-01-15] VITALS (15 sets, daily range): BP systolic 123–171; BP diastolic 68–94
[2024-01-15] MEDS: ZOSYN 100 IV ×2 (02:39→08:07)
[2024-01-15] MEDS: NSS 1000 IV ×2 (06:34→18:31)
[2024-01-15 07:09] LABS: Hematocrit 42.6 % (39.0-52.0); Hemoglobin 14.8 g/dL (13.0-18.0); Mean Corp Hgb Conc. 34.7 g/dL (33.0-37.0); Mean Corpuscular Hgb 33.6 pg (27.0-31.0); Mean Corpuscular Volume 96.8 fL (80.0-94.0); Mean Platelet Volume 9.7 fL (7.4-10.4); Platelet Count 195 10^3/uL (130-400); Red Cell Dist. Width 12.5 % (11.5-14.5); White Blood Cell Count 6.5 10^3/uL (4.8-10.8)
[2024-01-15 07:17] LABS: APTT 28.4 Sec (23.4-35.0); INR 0.97; PT 13.2 Sec (11.4-14.6)
[2024-01-15 07:18] LABS: Glucose - Point of Care 157 mg/dl (70-99)
[2024-01-15 07:22] LABS: Blood Urea Nitrogen 27 mg/dl (9-20); Calcium 8.8 mg/dl (8.4-10.2); Carbon Dioxide 27 mmol/L (22-30); Chloride 105 mmol/L (98-107); Estimated Creatinine Clearance 57 ml/min; Glucose 144 mg/dl (70-99); Potassium 4.6 mmol/L (3.5-5.1); Sodium 140 mmol/L (135-145); eGFR 55.09
[2024-01-15] MEDS: RESTASIS 0.05% OPHTHALMIC EMULSION 1 DROPS BOTH EYES (08:07)
[2024-01-15] MEDS: FIBERCON 625 MG PO (08:07)
[2024-01-15] MEDS: OCUVITE SOFTGEL 1 CAP PO (08:07)
[2024-01-15] MEDS: FLOMAX 0.4 MG PO (08:07)
[2024-01-15] MEDS: THERAGRAN 1 TABLET PO (08:07)
[2024-01-15] MEDS: COLACE 100 MG PO (08:08)
[2024-01-15] MEDS: LOW STRENGTH ASPIRIN PO (08:08)
[2024-01-15] MEDS: PROSCAR 5 MG PO (08:08)
[2024-01-15] MEDS: PATIENT'S OWN INSULIN PUMP 1.4 UNITS SC ×2 (08:13→12:35)
--- NOTE | 2024-01-15 08:27 | W.PN.HOSP.TC ---
Today's Communication/Plan
-
IV Abx. Arteriogram
Assessment / Plan
Assessment / Plan
Physical exam:
General: Well Developed, Well Nourished and No Apparent Distress
HEENT: Normocephalic, Atraumatic and Moist Mucous Membranes
Respiratory: Clear to Auscultation; Negative Wheezes, Rales or Rhonchi
Cardiac: Regular Rhythm and S1/S2
GI: Soft, Nontender and Nondistended
Musculoskeletal: Wrapped up left foot-postop findings. No Clubbing, No Cyanosis and No Edema
Neuro: Awake, Alert and Oriented
Psych: Calm
A/P:
Left fifth toe osteomyelitis:
Status post excisional debridement ulcer/bone left fifth toe on 01/11
Blood cultures no growth
Wound growing Pseudomonas aeruginosa and CONS
Continue IV Zosyn
Plan for arteriogram today by vascular surgery
Diabetes mellitus type 2:
On insulin pump
On
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
Last hemoglobin A1c 8.8
CKD stage III:
Creatinine 1.4 today
Continue IV fluid
Creatinine 1.2 on 01/11
Hypertension:
Continue losartan 50 mg p.o. daily
Hyperlipidemia:
Continue rosuvastatin 20 mg p.o. nightly
BPH:
Continue Proscar 5 mg p.o. daily and tamsulosin 0.4 mg p.o. daily
Other PMHx:
Peripheral neuropathy
History of non-Hodgkin lymphoma
History of Melanoma
History Pancreatic cyst (w/u pending OP)
DVT prophylaxis:
Heparin SQ
Code status:
Full code
Anticipated Discharge: > 48 hours
Subjective/Interval History
-
Date of Service: January 15, 2024
Reports some discomfort on and off from left lower extremity. No chest pain or shortness of breath. Afebrile
Objective Data
-
Labs:
Laboratory Results
01/15/24
06:33
WBC 6.5
Hgb 14.8
Hct 42.6
Plt Count 195
PT 13.2
INR 0.97
APTT 28.4
Sodium 140
Potassium 4.6
Chloride 105
Carbon Dioxide 27
BUN 27 H
Creatinine 1.4 H
Glucose 144 H
Calcium 8.8
Vital Signs:
Vital Signs
Temp Pulse Resp BP Pulse Ox
97.5 F 69 16 134/68 98
01/15/24 07:50 01/15/24 07:50 01/15/24 07:50 01/15/24 07:50 01/15/24 07:50
I&O
01/14/24 01/15/24 01/16/24
06:59 06:59 06:59
Intake Total 1560 / 1560 900 / 1380 480 / 480
Balance 1560 / 1560 900 / 1380 480 / 480
[2024-01-15] MEDS: LOW STRENGTH ASPIRIN 81 MG PO (09:28)
[2024-01-15] MEDS: HEPARIN SC ×2 (09:28→21:11)
[2024-01-15 11:43] LABS: Glucose - Point of Care 137 mg/dl (70-99)
--- NOTE | 2024-01-15 12:10 | W.PN.ID1 ---
Date of Service
Date of Service: January 15, 2024
Today's Communication
- for arteriogram today
- start ciprofloxacin/metronidazole, plan 7 more days of rx provided that pathology has negative margins as expected
- follow clinically
Assessment / Plan
Diabetic Foot Infection
Possible Osteomyelitis
DM2 on insulin - poor control
PAD
- 01/03 outpatient wound culture on paper chart: moderate PSA, no sensi; gram stain mod GNR and rare GPC in pairs/clusters
- 01/11 wound and tissue cultures: P aeruginosa (R zosyn, S ciprofloxacin), CONS
- blood cultures x2 in progress - NGTD
- MRSA nasal screen negative
- s/p resection of the joint - grossly infected tissue sent for culture in progress, bone sent for path
- a1c 8.8 - recommend tight glucose control
- for arteriogram today
- start ciprofloxacin/metronidazole, plan 7 more days of rx provided that pathology has negative margins as expected
- QTc today and tomorrow am
- follow clinically
Non-billable note: patient not in the room on rounds. Chart reviewed and antibiotics adjusted for cultures.
Chief Complaint
-: Other (diabetic foot infection)
Subjective / Review of Systems
Non-billable note: patient not in the room on rounds. Chart reviewed and antibiotics adjusted for cultures.
afebrile
bp stable
no events overnight
Vital Signs / Physical Exam
Vital Signs
Vital Signs
Temp Pulse Resp BP Pulse Ox
97.5 F 69 16 134/68 98
01/15/24 07:50 01/15/24 07:50 01/15/24 07:50 01/15/24 07:50 01/15/24 07:50
Objective Data
Lab Data
Lab Results
01/15/24 06:33
01/15/24 06:33
ESR 20 mm/hour (0-20) 01/12/24 10:08
PT 13.2 Sec (11.4-14.6) 01/15/24 06:33
INR 0.97 01/15/24 06:33
APTT 28.4 Sec (23.4-35.0) 01/15/24 06:33
Estimated Creat Clear 57 ml/min 01/15/24 06:33
Lactic Acid 1.0 mmol/L (0.7-2.0) 01/12/24 10:08
Total Bilirubin 0.5 mg/dl (0.2-1.3) 01/12/24 10:08
AST 35 U/L (17-59) 01/12/24 10:08
ALT 39 U/L (0-50) 01/12/24 10:08
Alkaline Phosphatase 90 U/L (38-126) 01/12/24 10:08
C-Reactive Protein 17.60 mg/L (0.0-10.00) H 01/12/24 10:08
Most recent labs reviewed.
Tissue Culture Preliminary 01/15/24-0949
Rare Pseudomonas aeruginosa
Few [place]agul[place] [id number] on 01/14/24 at 0846 [place] [id number]
Organism 1 Pseudomonas aeruginosa
1. Pseudomonas aeruginosa
M.I.C. RX
--------- ---
Aztreonam <=4 S
Cefepime <=2 S
Ceftazidime 16 R
Ciprofloxacin <=0.25 S
Meropenem <=1 S
Piperacillin/Tazobactam 32 I
Tobramycin <=2 S
Micro Results:
01/12/24 10:49 Blood Culture - Preliminary
Blood/Venous No Growth in 72 hours- Final report to follow
01/12/24 10:08 Blood Culture - Preliminary
Blood/Venous No Growth in 72 hours- Final report to follow
01/12/24 14:00 Anaerobic Culture - Preliminary
Toe Culture pending. Anaerobic cultures are examined after 3
days incubation. Additional information to follow.
01/12/24 14:00 Wound Culture - Preliminary
Toe Pseudomonas aeruginosa
Coagulase neg. staphylococcus
Gram Stain - Preliminary
01/12/24 14:00 Tissue Culture - Preliminary
Bone Pseudomonas aeruginosa
Coagulase neg. staphylococcus
Gram Stain - Preliminary
01/13/24 13:51 Nasal Screen MRSA (PCR) - Final
Nose MRSA not detected - performed by PCR methodology.
--- NOTE | 2024-01-15 12:35 | PN.DE.MGMTRT ---
Insulin Management
- -
01/15/2024: Insulin pump Management Consult
68 year old male w/PMH: HTN, HLD, GERD, Non-Hodgkin lymphoma, T2DM, Neuropathy who presented with left 5th toe osteomyelitis. Pt reports that he follows with [facility] Dr. Waters, was last seen 2 months ago. He uses Omnipod pump with
CGM-Dexcom G6, Humalog insulin and Jardiance 25mg daily.
A1C 8.8%, Cr 1.4, eGFR 55.09. Discussed current A1C with pt, he states A1C has gotten worse since dx of NHL and stopping Trulicity.
Pt awake, alert, oriented, sitting up in chair, pleasant, offers no complaints, able to discuss diabetes mgt.
Currently NPO for Arteriogram today, Farxiga on hold.
01/13 Premeal blood sugar range 153 to 178, FBG 144 (V), 157 POC.
Pump is currently in Automated mode, at following settings:
Basal 12am - 5am 1.55 units
5am - 9am 2.6 units
9am - 12am 1.4 units
ICR 1:8
ICF 1:40
Total 24 hr basal 52 .15 units.
Changes Pod Q2 days, due to be changed tomorrow. Just applied new sensor and still in warming phase.
Pt able to independently manage his pump without difficulties. Will make no changes to pump settings at this time.
Will cont to follow and adjust settings if needed.
Diabetes History
- -
Type of Diabetes: 2 requiring insulin
Pre-Admission Diabetes Regimen
01/15/24
06:33
Creatinine 1.4 H
Lab Results
Hemoglobin A1c 8.8 % (4.0-5.6) H 01/13/24 06:39
Insulin Pump Settings
IP Diabetes Regimen
01/14/24 01/14/24 01/15/24
18:51 21:24 06:33
Glucose 144 H
POC Glucose 153 H 252 H
12/02/24 12/02/24
07:17 11:43
Glucose
POC Glucose 157 H 137 H
Patient Education
--- NOTE | 2024-01-15 14:32 | W.SUR.PREOP ---
Pre-Operative Surgical Note
-
I have examined this patient prior to the performance of the scheduled procedure.
The patient's condition is unchanged from the time of the current History and
Physical and the patient is able to undergo the scheduled procedure.
[2024-01-15 16:36] LABS: Glucose - Point of Care 118 mg/dl (70-99)
--- NOTE | 2024-01-15 16:54 | W.IMMPOSTOP ---
Surgical Immed Post Op Note
-
Primary Surgeon: Dr. Hayder Hector III, MD
Assisting Surgeon: Bang Fields MD, PhD (PGY-2)
Pre-op Diagnosis: Peripheral arterial disease of the left lower extremity with non healing wounds
Post-op Diagnosis: Peripheral arterial disease of the left lower extremity with non healing wounds
Procedure Performed: Diagnostic arteriogram, balloon angioplasty of left popliteal artery and left TP trunk, perclose device
Anesthesia Type: MAC
Specimen / Cultures: None
Estimated Blood Loss: Minimal
Complications: None
Operative Findings: The patient was brought to the OR and placed in the supine position. Following anesthesia, the patient was prepped and draped in usual sterile fashion. Fluoroscopy was used to identify the inferior and superior boundaries of the
femoral head and these were marked at the skin level. Ultrasound guidance was used to identify the right MAGNETO REPAIRER. Local sedation was given at the proposed puncture site. Micropuncture kit was used to access the right MAGNETO REPAIRER. This was upsized to a 5 [place]
sheath over a Desino wire. A carl's hook catheter was advanced into the abdominal aorta over a guidewire. Diagnostic arteriogram showed a patent ilio-femoral system bilaterally, patent left SFA, above knee popliteal artery, an area of focal
stenosis at the behind/below knee popliteal artery. Distally, there was 2 vessel run off (AT and PT) with an area of focal stenosis at the proximal TP trunk. The PT and peroneal filled retrograde through collaterals which reconstituted in the lower
leg. The AT supplied the DP and the reconstituted PT flowed into the foot. Within the foot itself there was diffuse small vessel disease. A drug coated balloon angioplasty was performed at the area of popliteal artery stenosis, this profiled well.
Then a second balloon angioplasty was performed at the site of stenosis at the proximal TP trunk. Completion arteriogram showed brisk flow through the treated segment of the popliteal artery, with antegrade flow predominating to the tibial vessels.
Distally, there continued to be 2 vessel run off (AT and PT) -- now PT flowed antegrade -- with some sluggish filling of the proximal and mid peroneal segments. The sheaths and wires were removed and a perclose device was used to close the
arteriotomy. The patient was transported to the PACU in stable condition with doppler signals noted in his DP and PT on the left foot.
--- NOTE | 2024-01-15 16:57 | CM ---
Reviewed chart. Patient for sx today. Will review progress post op.
Plan: Case management will continue to follow and assist with discharge planning. Will review indications from medical staff once patient has returned from sx.
[2024-01-15] MEDS: PLAVIX 300 MG PO (17:03)
--- NOTE | 2024-01-15 17:06 | OR.RPT ---
Operative Report
Operative Report
Date of Operation: January 15, 2024
Pre Op Diagnosis: Chronic limb threatening ischemia with tissue loss left foot
Post Op Diagnosis: Chronic limb threatening ischemia with tissue loss left foot
Procedure:
1.) Drug-coated balloon angioplasty of left below-knee popliteal artery stenosis (4 mm x 80 mm Lutonix DCB)
2.) Balloon angioplasty of left tibioperoneal trunk stenosis (3 mm x 40 mm angioplasty balloon)
3.) Diagnostic aortobiiliac arteriogram
4.) Diagnostic left lower extremity arteriogram
5.) Ultrasound-guided percutaneous access to the right common femoral artery
6.) Pro-glide closure to right femoral artery access
Surgeon: Hayder Hector III, MD
General Dentist: Bang Fields MD PhD, PGY2
Anesthesia: Sedation with local
Fluoroscopy:
18 min
178 mGy
55 Gy.cm2
Complications: None
Estimated Blood Loss: Less than 20 cc
History and Indications for Procedure: 68-year-old male with limb threatening ischemia of the left lower extremity manifested by left foot wound. Abnormal preoperative lower extremity arterial studies. He was brought to the operating room for
arteriogram and possible endovascular intervention
Procedure in Detail: Jaycob Gmoez was correctly identified and placed supine on the operating table. After adequate induction of anesthesia the bilateral groins were prepped and draped in the usual sterile fashion. A timeout was performed with
the nursing and anesthesia staff confirming the patient's identity as well as the nature and laterality of the procedure.
The right common femoral artery was identified under ultrasound guidance. The artery was patent. The superior and inferior aspects of the femoral head were identified with radiographic guidance and marked at the skin level. The proposed puncture
site was infiltrated with local anesthesia. Under ultrasound guidance we accessed the right common femoral artery with a micropuncture needle and upsized to a 5 Fr sheath over a Bentson wire. The wire and a [employer] hook flush catheter were
advanced into the distal abdominal aorta and a diagnostic aorto-biiliac arteriogram was performed:
AORTO-ILIAC ARTERIOGRAM:
Aorta: Patent with no stenosis identified
Right common iliac artery: Patent with no stenosis identified
Right external iliac artery: Patent with no stenosis identified
Left common iliac artery: Patent with no stenosis identified
Left external iliac artery: Patent with no stenosis identified
Under roadmap guidance using a Glidewire and the [employer] hook catheter we selected the left common iliac artery and then the external iliac artery. A catheter was tracked up and over the aortic bifurcation and placed in the distal external iliac
artery. A diagnostic left lower extremity arteriogram was then performed which demonstrated the following:
LEFT LOWER EXTREMITY:
Common femoral artery: Patent with no stenosis identified
Profunda femoral artery: Patent with no stenosis identified
Superficial femoral artery: Patent with no stenosis identified
Popliteal artery: Patent. Focal smooth high-grade stenosis involving the below-knee popliteal artery.
Anterior tibial artery: Patent. Focal areas of moderate stenosis in the mid anterior tibial artery.
Tibioperoneal trunk: Patent with proximal stenosis identified
Peroneal artery: Patent proximally but occluded shortly thereafter
Posterior tibial artery: Patent. No significant stenosis identified
ENDOVASCULAR INTERVENTION: Systemic heparin was administered. Exchanged out for a 6 Fr 45 cm sheath over a Storq wire. Selected the superficial femoral artery and then the popliteal artery under roadmap guidance with Quickcross catheter and
glidewire. The popliteal artery stenosis was crossed with a Glidewire and Quickcross. The wire and catheter were advanced into the tibioperoneal trunk and subtraction angio confirmed proper position in the true lumen. Exchanged out for a V18 wire. A
4 mm x 80 mm angioplasty balloon was placed across the popliteal artery stenosis under roadmap guidance. The balloon was inflated to nominal pressure, held in place for 3 minutes and then deflated and removed over the wire. Subsequent arteriogram
demonstrated excellent technical result with a widely patent popliteal artery and no residual stenosis identified.
I then focused my attention on the tibioperoneal trunk stenosis. The wire was exchanged out for a 0.[address] wire. Under roadmap guidance a 3 mm x 40 mm angioplasty balloon was placed across the tibioperoneal trunk stenosis. The balloon was
inflated to nominal pressure and held in place for 2 minutes. The balloon was slowly deflated and removed over the wire.
COMPLETION ARTERIOGRAM: Excellent technical result. Brisk flow through a widely patent popliteal artery with no residual stenosis identified. Patent tibioperoneal trunk with no significant residual stenosis identified. Tibial outflow through the
anterior tibial artery and posterior tibial artery. The anterior tibial artery continued across the ankle to form the dorsalis pedis artery. The posterior tibial artery continued across the ankle to form plantar branches. Small vessel disease was
identified in the foot.
Satisfied with this result we concluded the procedure. Protamine was administered. The sheath tip was pulled back into the right external iliac artery. The wire was removed and a Oobafit wire was replaced. A single Pro-glide closure device was
positioned and deployed across the right femoral artery access. The knots were secured and hemostasis was achieved. Additional manual pressure was held over the puncture site for 5 minutes. A sterile dressing was applied.
The patient tolerated the procedure well and was taken to the recovery area in stable condition.
Attestation: I was present and responsible for the entire procedure.
Signed:
Hayder Hector III, MD
[facility] Vascular Surgery
[phone] (rthp)
[2024-01-15] MEDS: PATIENT'S OWN INSULIN PUMP SC (17:40)
[2024-01-15] MEDS: COZAAR 50 MG PO (18:29)
[2024-01-15] MEDS: CRESTOR 20 MG PO (18:29)
[2024-01-15] MEDS: CIPRO 750 MG PO (21:11)
[2024-01-15] MEDS: FLAGYL 500 MG PO (21:11)
[2024-01-15 21:31] LABS: Glucose - Point of Care 222 mg/dl (70-99)
[2024-01-15] MEDS: PATIENT'S OWN INSULIN PUMP 0.1 UNITS SC (21:41)
[2024-01-16 03:00] VITALS: BP 130/75
--- NOTE | 2024-01-16 07:46 | W.PN.HOSP.TC ---
Addendum entered and electronically signed by Jaziel Akhtar MD 01/16/24 15:58:
Left lower extremity nonhealing wounds and left fifth toe osteomyelitis etiology multifactorial, Diabetes Mellitus and PAD
Original Note:
Today's Communication/Plan
-
Antibiotics. Discharge planning
Assessment / Plan
Assessment / Plan
Physical exam:
General: Well Developed, Well Nourished and No Apparent Distress
HEENT: Normocephalic, Atraumatic and Moist Mucous Membranes
Respiratory: Clear to Auscultation; Negative Wheezes, Rales or Rhonchi
Cardiac: Regular Rhythm and S1/S2
GI: Soft, Nontender and Nondistended
Musculoskeletal: Wrapped up left foot-postop findings. No Clubbing, No Cyanosis and No Edema
Neuro: Awake, Alert and Oriented
Psych: Calm
A/P:
Left fifth toe osteomyelitis:
Status post excisional debridement ulcer/bone left fifth toe on 01/11
Blood cultures no growth
Wound and bone cultures growing Pseudomonas aeruginosa and CONS
Changed to IV vancomycin and meropenem per ID
Cleared for discharge by vascular surgery and plate shear operator.
Plan to discharge as soon as cleared by ID.
Critically limb ischemia of left lower extremity:
Status post angiogram on 01/14 and status post angioplasty by vascular surgeon
Diabetes mellitus type 2:
On insulin pump
On
Diabetes SKILLS AUDITOR input appreciated
Last hemoglobin A1c 8.8
CKD stage III:
Creatinine 1.4--> 1.1 today
Stop IV fluid
Creatinine 1.2 on 01/11
Hypertension:
Continue losartan 50 mg p.o. daily
Hyperlipidemia:
Continue rosuvastatin 20 mg p.o. nightly
BPH:
Continue Proscar 5 mg p.o. daily and tamsulosin 0.4 mg p.o. daily
Other PMHx:
Peripheral neuropathy
History of non-Hodgkin lymphoma
History of Melanoma
History Pancreatic cyst (w/u pending OP)
DVT prophylaxis:
Heparin SQ
Code status:
Full code
Anticipated Discharge: Today
Subjective/Interval History
-
Date of Service: January 16, 2024
Patient denies any nausea vomiting or diarrhea. Afebrile.
Objective Data
-
Labs:
Laboratory Results
01/16/24
07:26
WBC Pending
Hgb Pending
Hct Pending
Plt Count Pending
Sodium Pending
Potassium Pending
Chloride Pending
Carbon Dioxide Pending
BUN Pending
Creatinine Pending
Glucose Pending
Calcium Pending
Vital Signs:
Vital Signs
Temp Pulse Resp BP Pulse Ox
97.4 F 90 16 130/75 98
01/16/24 03:00 01/16/24 03:00 01/16/24 03:00 01/16/24 03:00 01/16/24 03:00
I&O
01/15/24 01/16/24 01/17/24
06:59 06:59 06:59
Intake Total 900 / 1380 1300 / 1300
Output Total 600 / 600
Balance 900 / 1380 700 / 700
--- NOTE | 2024-01-16 07:46 | W.PN.UPDATE ---
Update Note
Progress Note Update
pt seen for fu left foot
s/p angio lle, increased BF, palpable pulses left foot warm
cft wnl
toes warm
a/p s/pdebridement left 5th toe---stable
rec cont abx 4-6 weeks, only naya for clean margin from path would be to amp toe
pt would like to save toe and watch as outpt, rec abx 4-6 weeks ( assume possible residual osteo, minimal)
toe stable
wb in sx shoe
right foot stable
will debride callus at bdide
stable for dc from pod standpt---pt needs daily bandages changes vna
[2024-01-16 08:02] VITALS: BP 166/91
[2024-01-16 08:32] LABS: Glucose - Point of Care 104 mg/dl (70-99)
[2024-01-16 08:36] LABS: % Basophils 0.5 % (0-2); % Eosinophils 0.5 % (0-6); % Immature Granulocytes 0.4 % (0-0.5); % Lymphocytes 12.6 % (20.5-51.1); Absolute Lymphocytes 1.1 10^3/uL (1.2-3.4); Absolute Monocytes 0.7 10^3/uL (0.1-0.6); Absolute Neutrophils 6.5 10^3/uL (1.4-6.5); Hematocrit 47.2 % (39.0-52.0); Hemoglobin 16.1 g/dL (13.0-18.0); Mean Corp Hgb Conc. 34.1 g/dL (33.0-37.0); Mean Corpuscular Hgb 32.9 pg (27.0-31.0); Mean Corpuscular Volume 96.5 fL (80.0-94.0); Nucleated Red Blood Cells % 0 % (-); Platelet Count 227 10^3/uL (130-400); Red Blood Cell Count 4.89 10^6/uL (4.70-6.10); Red Cell Dist. Width 12.2 % (11.5-14.5); White Blood Cell Count 8.4 10^3/uL (4.8-10.8)
--- NOTE | 2024-01-16 08:37 | W.PN.UPDATE ---
Update Note
Progress Note Update
I d/w ID , rec 4-6 weeks abx , they will make arrangements, rec IV
pt understands may need further sx on toe, but can manage closely as outpt
pt can wb in sx shoe
keep dry, change bandages daily when dc
path to see if most proximal aspect or proximal phal is clean, may not be able to
right foot --stable, pre ulcer, subdermal bleeding and debrided at bedside, wound closed, no soi
[2024-01-16] MEDS: NSS IV (08:40)
--- NOTE | 2024-01-16 08:54 | W.PN.VS ---
Addendum entered and electronically signed by Hayder Hector III, MD 01/16/24 10:59:
This patient was seen and examined with SUNNY Barba. I agree with the history and physical exam as well as the assessment and plan. I have the following additions:
Dr. Arciniega at bedside with us
Successful endovascular intervention yesterday
Left foot warm
Dual antiplatelet therapy with aspirin/plavix
Okay for discharge from our perspective
Follow-up with me in the office in 2 to 4 weeks for evaluation and postprocedure IVANIA/TBI/duplex
Signed:
Hayder Hector III, MD
[facility] Vascular Surgery
[phone] (cppx)
Original Note:
Today's Communication / Plan
-
Seen and assessed with Dr. Hector
Assessment/Plan
-
POD1 Drug-coated balloon angioplasty of left below-knee popliteal artery stenosis (4 mm x 80 mm Lutonix DCB)
Balloon angioplasty of left tibioperoneal trunk stenosis (3 mm x 40 mm angioplasty balloon)
Plan:
- Okay for discharge from vascular standpoint
- Will add follow-up to chart
Subjective Data
-
Date of Service: January 16, 2024
Patient stated bedside visit with Dr. Hector. No events overnight. Groin site stable. No complaints at this time.
Objective Data
-
Vital Signs
Temp Pulse Resp BP Pulse Ox
98.0 F 89 16 166/91 98
01/16/24 08:02 01/16/24 08:02 01/16/24 08:02 01/16/24 08:02 01/16/24 08:02
Intake and Output
01/15/24 01/16/24 01/17/24
06:59 06:59 06:59
Intake Total 900 / 1380 1300 / 1300
Output Total 600 / 600
Balance 900 / 1380 700 / 700
Intake:
Oral fluids 900 / 1380 1200 / 1200
IV fluids (Total) 100 / 100
normal saline 100 / 100
Output:
Urine, Voided 600 / 600
Other:
Number of approximated MODERATE 4 2
amounts of urine
Lab Results
01/16/24 07:26
Calcium 8.8 mg/dl (8.4-10.2) 01/15/24 06:33
Total Bilirubin 0.5 mg/dl (0.2-1.3) 01/12/24 10:08
AST 35 U/L (17-59) 01/12/24 10:08
ALT 39 U/L (0-50) 01/12/24 10:08
Alkaline Phosphatase 90 U/L (38-126) 01/12/24 10:08
Total Protein 7.2 g/dl (6.3-8.2) 01/12/24 10:08
Albumin 4.5 g/dl (3.5-5.0) 01/12/24 10:08
Physical Exam
-
AAOx3
No tachypnea
No tachycardia
Abdomen soft
Groin site stable, Clean, dry, intact
[2024-01-16 08:56] LABS: Blood Urea Nitrogen 24 mg/dl (9-20); Calcium 8.9 mg/dl (8.4-10.2); Carbon Dioxide 19 mmol/L (22-30); Chloride 107 mmol/L (98-107); Estimated Creatinine Clearance 73 ml/min; Glucose 98 mg/dl (70-99); Potassium 4.8 mmol/L (3.5-5.1); Sodium 140 mmol/L (135-145); eGFR > 60.00
[2024-01-16] MEDS: PATIENT'S OWN INSULIN PUMP 1.4 UNITS SC ×2 (09:21→11:31)
[2024-01-16] MEDS: OCUVITE SOFTGEL 1 CAP PO (09:21)
[2024-01-16] MEDS: THERAGRAN 1 TABLET PO (09:22)
[2024-01-16] MEDS: CIPRO 750 MG PO (09:22)
[2024-01-16] MEDS: COLACE 100 MG PO (09:22)
[2024-01-16] MEDS: FIBERCON 625 MG PO (09:22)
[2024-01-16] MEDS: RESTASIS 0.05% OPHTHALMIC EMULSION 1 DROPS BOTH EYES (09:22)
[2024-01-16] MEDS: FLAGYL 500 MG PO (09:22)
[2024-01-16] MEDS: PROSCAR 5 MG PO (09:22)
[2024-01-16] MEDS: FLOMAX 0.4 MG PO (09:23)
[2024-01-16] MEDS: PLAVIX 75 MG PO (09:23)
[2024-01-16] MEDS: LOW STRENGTH ASPIRIN 81 MG PO (09:23)
[2024-01-16] MEDS: HEPARIN 5000 UNITS SC ×2 (09:23→21:19)
--- NOTE | 2024-01-16 10:08 | W.PN.ID1 ---
Addendum entered and electronically signed by Amanda Bowen MD 01/16/24 16:28:
chart reviewed CONS sensitivities not back yet, hopefully tomorrow
Original Note:
Date of Service
Date of Service: January 16, 2024
Today's Communication
- start vancomycin, meropenem
- place picc
- preliminary script given to briefcase sewer, will be finalized when sensi on CONS available tomorrow or perhaps later today
- follow clinically
Assessment / Plan
Diabetic Foot Infection
Possible Osteomyelitis
DM2 on insulin - poor control
PAD
- 01/03 outpatient wound culture on paper chart: moderate PSA, no sensi; gram stain mod GNR and rare GPC in pairs/clusters
- 01/11 wound and tissue cultures: P aeruginosa (R zosyn, S ciprofloxacin), CONS
- lab will check final ID and sensi on the CONS
- blood cultures x2 in progress - NGTD
- MRSA nasal screen negative
- s/p resection of the joint - grossly infected tissue sent for culture in progress, margin sent for path
- a1c 8.8 - recommend tight glucose control
- start vancomycin, meropenem
- place picc
- preliminary script given to briefcase sewer, will be finalized when sensi on CONS available tomorrow or perhaps later today; I will reach out to briefcase sewer when finalized
- follow clinically; follow up in my clinic next week
Chief Complaint
-: Other (diabetic foot infection)
Subjective / Review of Systems
afebrile
bp stable
discussed with Dr Arciniega
Vital Signs / Physical Exam
Vital Signs
Vital Signs
Temp Pulse Resp BP Pulse Ox
98.0 F 89 16 166/91 98
01/16/24 08:02 01/16/24 08:02 01/16/24 08:02 01/16/24 08:02 01/16/24 08:02
Physical Exam
Constitutional: No Acute Distress and Chronically Ill
Cardiovascular: Regular Rate and S1/S2; Negative Murmur or Rub
Pulmonary: Clear and Symmetric; Negative Wheezes or Rales
Gastrointestinal: Soft, Non Tender, Non Distended and Normal Bowel Sounds
Skin: Warm and Dry; Negative Rash or Jaundice
Wound: Other (dressing take down deferred at patient request)
Objective Data
Lab Data
Lab Results
01/16/24 07:26
01/16/24 07:26
ESR 20 mm/hour (0-20) 01/12/24 10:08
PT 13.2 Sec (11.4-14.6) 01/15/24 06:33
INR 0.97 01/15/24 06:33
APTT 28.4 Sec (23.4-35.0) 01/15/24 06:33
Estimated Creat Clear 73 ml/min 01/16/24 07:26
Lactic Acid 1.0 mmol/L (0.7-2.0) 01/12/24 10:08
Total Bilirubin 0.5 mg/dl (0.2-1.3) 01/12/24 10:08
AST 35 U/L (17-59) 01/12/24 10:08
ALT 39 U/L (0-50) 01/12/24 10:08
Alkaline Phosphatase 90 U/L (38-126) 01/12/24 10:08
C-Reactive Protein 17.60 mg/L (0.0-10.00) H 01/12/24 10:08
Most recent labs reviewed.
Tissue Culture Preliminary 01/15/24-948
Rare Pseudomonas aeruginosa
Few Coagul[place] [id number] on 01/14/24 at 0846 [place] [id number]
Organism 1 Pseudomonas aeruginosa
1. Pseudomonas aeruginosa
M.I.C. RX
--------- ---
Aztreonam <=4 S
Cefepime <=2 S
Ceftazidime 16 R
Ciprofloxacin <=0.25 S
Meropenem <=1 S
Piperacillin/Tazobactam 32 I
Tobramycin <=2 S
Micro Results:
01/12/24 14:00 Anaerobic Culture - Preliminary
Toe NO ANAEROBES ISOLATED
01/12/24 10:49 Blood Culture - Preliminary
Blood/Venous No Growth in 72 hours- Final report to follow
01/12/24 10:08 Blood Culture - Preliminary
Blood/Venous No Growth in 72 hours- Final report to follow
01/12/24 14:00 Wound Culture - Preliminary
Toe Pseudomonas aeruginosa
Coagulase neg. staphylococcus
Gram Stain - Preliminary
01/12/24 14:00 Tissue Culture - Preliminary
Bone Pseudomonas aeruginosa
Coagulase neg. staphylococcus
Gram Stain - Preliminary
01/13/24 13:51 Nasal Screen MRSA (PCR) - Final
Nose MRSA not detected - performed by PCR methodology.
--- NOTE | 2024-01-16 10:09 | PN.DE.MGMTRT ---
Insulin Management
- -
01/16/2024: Insulin pump Management F/U:
68 year old male w/PMH: HTN, HLD, GERD, Non-Hodgkin lymphoma, T2DM, Neuropathy who presented with left 5th toe osteomyelitis. Pt reports that he follows with [facility] Dr. Waters, was last seen 2 months ago. He uses Omnipod pump with
CGM-Dexcom G6, Humalog insulin and Jardiance 25mg daily.
A1C 8.8%, Cr 1.4, eGFR 55.09. Discussed current A1C with pt, he states A1C has gotten worse since dx of NHL and stopping Trulicity.
Pt awake, alert, oriented, sitting up in chair, pleasant, offers no complaints, able to discuss diabetes mgt.
Pump is currently in Automated mode, at following settings:
Basal 12am - 5am 1.55 units
5am - 9am 2.6 units
9am - 12am 1.4 units
ICR 1:8
ICF 1:30
Target 130
Total 24 hr basal 52 .15 units.
12/ Premeal blood sugar range 118 to 157, FBG 98 (V), 104 POC.
Will resume Farxiga(on Jardiance at home) 10 mg daily and make no changes to current pump settings.
Changes Pod Q2 days, due to be changed today.
Pt able to independently manage his pump without difficulties. Will make no changes to pump settings at this time.
Will cont to follow and adjust settings if needed. Resume Jardiance upon discharge home.
Diabetes History
- -
Type of Diabetes: 2 requiring insulin
Pre-Admission Diabetes Regimen
01/16/24
07:26
Creatinine 1.1
Lab Results
Hemoglobin A1c 8.8 % (4.0-5.6) H 01/13/24 06:39
Insulin Pump Settings
IP Diabetes Regimen
01/15/24 01/15/24 01/15/24
11:43 16:35 21:29
Glucose
POC Glucose 137 H 118 H 222 H
01/16/24 01/16/24
07:26 08:31
Glucose 98
POC Glucose 104 H
Patient Education
--- NOTE | 2024-01-16 10:22 | PHA.VAN.IN ---
Addendum entered and electronically signed by Mikki Sanchez Lola 01/16/24 15:47:
BUN & SCR ordered per protocol
Original Note:
Assessment
- Assessment
Renal Function: Unknown baseline
Plan
- Plan
Initial / Loading Dose: 1000mg x1 now then 1000mg at 1800 in lieu of loading dose
Maintenance Regimen: dosing by level
Monitoring: random 01/16 0600
Unclear baseline renal function
Estimated CrCl predicting Q12H interval
Will give 1000mg x2 doses today and obtain level in AM to assess approximately 12H level
Pharmacokinetics Vancomycin I
- -
Patient Age: 68
Patient Sex: Male
Vancomycin Day #: 1
Indication: Bone And Joint
Requesting Provider: Dr. Bowen
Pertinent Antimicrobial Allergies:
NKDA
Height / Weight:
Height 5 ft 8 in
Actual Weight 95.663 kg
Pertinent Past Medical History: BMI ~32
- Vital Signs / Lab Results
Temp Pulse Resp BP Pulse Ox
98.0 F 89 16 166/91 98
01/16/24 08:02 01/16/24 08:02 01/16/24 08:02 01/16/24 08:02 01/16/24 08:02
Lab Results - Hematology
01/14/24 01/15/24 01/16/24
06:46 06:33 07:26
WBC 6.8 6.5 8.4
Lab Results - Chemistry
01/14/24 01/15/24 01/16/24
06:46 06:33 07:26
BUN 32 H 27 H 24 H
Creatinine 1.3 1.4 H 1.1
Estimated Creat Clear 62 57 73
Microbiology Results
01/12/24 10:08 Blood Culture - Preliminary
Blood/Venous No Growth in 4 days- Final report to follow
01/12/24 14:00 Anaerobic Culture - Preliminary
Toe NO ANAEROBES ISOLATED
01/12/24 10:49 Blood Culture - Preliminary
Blood/Venous No Growth in 72 hours- Final report to follow
01/12/24 14:00 Wound Culture - Preliminary
Toe Pseudomonas aeruginosa
Coagulase neg. staphylococcus
Gram Stain - Preliminary
01/12/24 14:00 Tissue Culture - Preliminary
Bone Pseudomonas aeruginosa
Coagulase neg. staphylococcus
Gram Stain - Preliminary
[2024-01-16 11:05] VITALS: BP 120/59
[2024-01-16] MEDS: VANCOCIN 200 IV ×2 (11:31→17:04)
[2024-01-16] MEDS: MERREM 1000 MG IV ×2 (11:33→21:19)
[2024-01-16 11:51] LABS: Glucose - Point of Care 193 mg/dl (70-99)
--- NOTE | 2024-01-16 13:12 | PN.CDI ---
CDI
- -
CDI:
Physician Documentation Request
Admit Date: 01/12/24 12:15
Dear Doctor Hermilo,
Please review the following and provide your response in the progress notes.
Clinical Indicators:
PN, 01/14
#Left fifth toe osteomyelitis:
#...Status post excisional debridement ulcer/bone left fifth toe on 01/11
#...Continue IV Zosyn
#Plan for arteriogram today by vascular surgery
#Diabetes mellitus type 2
Vascular Surgery, 01/14
#Pre-op Diagnosis:
#...Peripheral arterial disease of the left lower extremity with non healing wounds
Please clarify the relationship, if any, between the left fifth toe osteomyelitis and left lower extremity non healing wounds,...
Multifactorial, Diabetes and PAD
Diabetes only
PAD only
Other(please specify)
Use of terms such as suspected, likely, concern for, or probable (associated with a specific diagnosis that is being evaluated, monitored, or treated as if it exists) are acceptable and can be coded in the inpatient setting, when documented at the
time of discharge.
Thank you,
Sana Kinney RN BSN CCDS
CDI Specialist
please contact via tiger text
Please use your independent medical judgment in providing your response.
--- NOTE | 2024-01-16 13:21 | CM ---
Spoke with ID MD who stated that patient will need PICC placement and will return home on IV ABX. Script provided however ID stated medication may change. Will call infusion care center to send clinicals and make aware of ABX need. Will fax current
script when it becomes available. Patient will need VN services.
Plan: Case management will continue to follow and assist with discharge planning. Home with IV ABX and Vn services.
[2024-01-16 15:00] VITALS: BP 146/73
[2024-01-16] MEDS: CRESTOR 20 MG PO (17:04)
[2024-01-16] MEDS: PATIENT'S OWN INSULIN PUMP 1.5 UNITS SC (17:05)
[2024-01-16] MEDS: COZAAR 50 MG PO (17:06)
[2024-01-16 17:14] LABS: Glucose - Point of Care 169 mg/dl (70-99)
[2024-01-16] MEDS: STERILE WATER FOR INJECTION 20 ML IV (21:19)
[2024-01-16 21:35] LABS: Glucose - Point of Care 196 mg/dl (70-99)
[2024-01-16] MEDS: PATIENT'S OWN INSULIN PUMP 4 UNITS SC (22:44)
[2024-01-16 23:00] VITALS: BP 139/65
[2024-01-17] MEDS: MERREM 1000 MG IV ×2 (03:50→12:58)
[2024-01-17] MEDS: STERILE WATER FOR INJECTION 20 ML IV ×2 (03:50→12:58)
[2024-01-17 05:49] LABS: Blood Urea Nitrogen 27 mg/dl (9-20); Estimated Creatinine Clearance 73 ml/min
[2024-01-17 05:56] LABS: Vancomycin Random 9.4 ug/ml
[2024-01-17 07:36] VITALS: BP 155/86
[2024-01-17 07:46] LABS: Glucose - Point of Care 105 mg/dl (70-99)
--- NOTE | 2024-01-17 07:54 | PN.DE.MGMTRT ---
Insulin Management
- -
01/17/2024: Insulin pump Management F/U:
68 year old male w/PMH: HTN, HLD, GERD, Non-Hodgkin lymphoma, T2DM, Neuropathy who presented with left 5th toe osteomyelitis. Pt reports that he follows with [facility] Dr. Waters, was last seen 2 months ago. He uses Omnipod pump with
CGM-Dexcom G6, Humalog insulin and Jardiance 25mg daily.
A1C 8.8%, Cr 1.4, eGFR 55.09. Discussed current A1C with pt, he states A1C has gotten worse since dx of NHL and stopping Trulicity.
Pt awake, alert, oriented, sitting up in chair, pleasant, offers no complaints, able to discuss diabetes mgt.
Pump is currently in Automated mode, at following settings:
Basal 12am - 5am 1.55 units
5am - 9am 2.6 units
9am - 12am 1.4 units
ICR 1:8
ICF 1:30
Target 130
Total 24 hr basal 52 .15 units.
01/15 Premeal blood sugar range 104 to 193, FBG 105 POC.
Pt able to independently manage his pump without difficulties. Will make no changes to pump settings at this time.
Cont Farxiga(on Jardiance at home) 10 mg daily .
Will cont to follow and adjust settings if needed. Resume Jardiance upon discharge home.
Diabetes History
- -
Type of Diabetes: 2 requiring insulin
Pre-Admission Diabetes Regimen
01/16/24 01/17/24
07:26 05:12
Creatinine 1.1 1.1
Lab Results
Hemoglobin A1c 8.8 % (4.0-5.6) H 01/13/24 06:39
Insulin Pump Settings
IP Diabetes Regimen
01/16/24 01/16/24 01/16/24
07:26 08:31 11:50
Glucose 98
POC Glucose 104 H 193 H
01/16/24 01/16/24 01/17/24
17:12 21:34 07:45
Glucose
POC Glucose 169 H 196 H 105 H
Meal type: Lunch
Meal type: Breakfast
Amount consumed: 100%
Amount consumed: 100%
Patient Education
[2024-01-17] MEDS: RESTASIS 0.05% OPHTHALMIC EMULSION 1 DROPS BOTH EYES (07:56)
[2024-01-17] MEDS: PROSCAR 5 MG PO (07:56)
[2024-01-17] MEDS: COLACE 100 MG PO (07:56)
[2024-01-17] MEDS: FLOMAX 0.4 MG PO (07:56)
[2024-01-17] MEDS: THERAGRAN 1 TABLET PO (07:56)
[2024-01-17] MEDS: FARXIGA 10 MG PO (07:56)
[2024-01-17] MEDS: LOW STRENGTH ASPIRIN 81 MG PO (07:56)
[2024-01-17] MEDS: FIBERCON 625 MG PO (07:56)
[2024-01-17] MEDS: HEPARIN 5000 UNITS SC (07:56)
[2024-01-17] MEDS: PLAVIX 75 MG PO (07:56)
[2024-01-17] MEDS: OCUVITE SOFTGEL 1 CAP PO (07:56)
[2024-01-17] MEDS: PATIENT'S OWN INSULIN PUMP 3 UNITS SC (08:06)
--- NOTE | 2024-01-17 08:14 | PHA.VAN.FU ---
Vancomycin Assessment / Plan
- Assessment
Renal Function: Stable
WBC's are: WNL
In the past 24 hrs, patient has been: Afebrile
Concomitant Antimicrobials: meropenem
- Assessment - Therapeutic Drug Monitoring
Random Level: 9.4 - drawn ~12H after 2nd dose of 1000mg
- Dosing Plan
Adjust Regimen to: Vanc 1000mg Q12H
Level not at steady state - drawn after 2nd total dose (neither was a loading dose)
Level appears appropriate for Q12H dosing interval and expected to have additional accumulation - continue Vanc 1000mg Q12H for now
- Monitoring Plan
Repeat levels in next few days at steady state to assess if accumulating appropriately
- Follow Up
Pharmacy will continue to follow.
Vancomycin Follow UP
- -
Patient Age: 68
Patient Sex: Male
Vancomycin Day #: 2
Indication: Bone And Joint
Requesting Provider: Dr. Bowen
Pertinent Antimicrobial Allergies:
NKDA
Height / Weight:
Height 5 ft 8 in
Actual Weight 95.663 kg
Pertinent Past Medical History: BMI ~32
- Vital Signs / Lab Results
Temp Pulse Resp BP Pulse Ox
98.6 F 77 16 155/86 96
01/17/24 07:36 01/17/24 07:36 01/17/24 07:36 01/17/24 07:36 01/17/24 07:36
Lab Results - Hematology
01/15/24 01/16/24
06:33 07:26
WBC 6.5 8.4
Lab Results - Chemistry
01/15/24 01/16/24 01/17/24
06:33 07:26 05:12
BUN 27 H 24 H 27 H
Creatinine 1.4 H 1.1 1.1
Estimated Creat Clear 57 73 73
Microbiology Results
01/12/24 14:00 Tissue Culture - Preliminary
Bone Pseudomonas aeruginosa
Coagulase neg. staphylococcus
Gram Stain - Preliminary
01/12/24 10:49 Blood Culture - Preliminary
Blood/Venous No Growth in 4 days- Final report to follow
01/12/24 10:08 Blood Culture - Preliminary
Blood/Venous No Growth in 4 days- Final report to follow
01/12/24 14:00 Anaerobic Culture - Preliminary
Toe NO ANAEROBES ISOLATED
01/12/24 14:00 Wound Culture - Preliminary
Toe Pseudomonas aeruginosa
Coagulase neg. staphylococcus
Gram Stain - Preliminary
Therapeutic Drug Monitoring
Random Vancomycin 9.4 ug/ml 01/17/24 05:12
--- NOTE | 2024-01-17 08:38 | W.PN.HOSP.TC ---
Today's Communication/Plan
-
Discharge planning today
Assessment / Plan
Assessment / Plan
Physical exam:
General: Well Developed, Well Nourished and No Apparent Distress
HEENT: Normocephalic, Atraumatic and Moist Mucous Membranes
Respiratory: Clear to Auscultation; Negative Wheezes, Rales or Rhonchi
Cardiac: Regular Rhythm and S1/S2
GI: Soft, Nontender and Nondistended
Musculoskeletal: Wrapped up left foot-postop findings. No Clubbing, No Cyanosis and No Edema
Neuro: Awake, Alert and Oriented
Psych: Calm
A/P:
Left fifth toe osteomyelitis:
Status post excisional debridement ulcer/bone left fifth toe on 01/11
Left lower extremity nonhealing wounds and left fifth toe osteomyelitis multifactorial etiology including diabetes mellitus and PAD.
Blood cultures no growth
Wound and bone cultures growing Pseudomonas aeruginosa and CONS
Changed to IV meropenem per ID
Cleared for discharge by vascular surgery and recreation center director. ID cleared him for discharge today on 01/16.
Discharge planning today--> child welfare caseworker for discharge disposition
Critically limb ischemia of left lower extremity:
Status post angiogram on 01/14 and status post angioplasty by vascular surgeon
Diabetes mellitus type 2:
On insulin pump
On
Diabetes FURNACE MASON input appreciated
Last hemoglobin A1c 8.8
CKD stage III:
Creatinine 1.4--> 1.1 today
Off IV fluid
Creatinine 1.2 on 01/11
Hypertension:
Continue losartan 50 mg p.o. daily
Hyperlipidemia:
Continue rosuvastatin 20 mg p.o. nightly
BPH:
Continue Proscar 5 mg p.o. daily and tamsulosin 0.4 mg p.o. daily
Other PMHx:
Peripheral neuropathy
History of non-Hodgkin lymphoma
History of Melanoma
History Pancreatic cyst (w/u pending OP)
DVT prophylaxis:
Heparin SQ
Code status:
Full code
Anticipated Discharge: Today
Subjective/Interval History
-
Date of Service: January 17, 2024
No new complaints
Objective Data
-
Labs:
Laboratory Results
01/17/24
05:12
BUN 27 H
Creatinine 1.1
Vital Signs:
Vital Signs
Temp Pulse Resp BP Pulse Ox
98.6 F 77 16 155/86 96
01/17/24 07:36 01/17/24 07:36 01/17/24 07:36 01/17/24 07:36 01/17/24 07:36
I&O
01/16/24 01/17/24 01/18/24
06:59 06:59 06:59
Intake Total 1300 / 1300 900 / 900
Output Total 600 / 600
Balance 700 / 700 900 / 900
[2024-01-17] MEDS: VANCOCIN 200 IV (08:46)
--- NOTE | 2024-01-17 09:28 | W.PN.UPDATE ---
Update Note
Progress Note Update
CONS S lugdunensis
plan 4 weeks of meropenem.
stop vancomycin
stable for dc from ID perspective
--- NOTE | 2024-01-17 10:51 | CM ---
Addendum entered by BLAKE Joseph 01/17/24 13:58:
Faxed all requested clinicals to Malou at [facility] [phone]-Facesheet, Labs, med list, ID progress notes, H&P.
Met with patient who was agreeable to [facility] visiting him inpatient to teach him how to do his ABX. Maia from [facility] also came to see patient. Faxed referral to [facility]. Maia confirmed ability to see patient after he returns home. Malou from
[facility] confirmed that she had all information that she needed to get medication ready for patient to receive his dose tonight.
Patient expressed no concerns.
Patient's S.O will transport patient home and assist with wound care.
Attending aware.
Original Note:
Reviewed chart, spoke with Podiatry, ID and attending who all stated that patient is medically stable for discharge today. Placed a call to Malou at [facility] who confirmed that she can review patient's clinical and start process of checking
benefits. She stated that she would be in later today to teach patient how to administer medication.
Will make referral to [facility].
Plan: Case management will continue to follow and assist with discharge planning. Home with IV ABX and VN services.
--- NOTE | 2024-01-17 12:49 | W.PN.ID1 ---
Date of Service
Date of Service: January 17, 2024
Today's Communication
- c/w meropenem; stop vancomycin
- place picc
- finalized script with special education case manager
- stable for dc from ID perspective, follow up in my clinic next week
Assessment / Plan
Diabetic Foot Infection
Possible Osteomyelitis
DM2 on insulin - poor control
PAD
- 01/03 outpatient wound culture on paper chart: moderate PSA, no sensi; gram stain mod GNR and rare GPC in pairs/clusters
- 01/11 wound and tissue cultures: P aeruginosa (R zosyn, S ciprofloxacin), CONS
- lab will check final ID and sensi on the CONS
- blood cultures x2 in progress - NGTD
- MRSA nasal screen negative
- path remains pending
- s/p resection of the joint - grossly infected tissue sent for culture in progress, margin sent for path
- a1c 8.8 - recommend tight glucose control
- c/w meropenem; stop vancomycin
- place picc
- finalized script with special education case manager
- stable for dc from ID perspective, follow up in my clinic next week
Chief Complaint
-: Other (diabetic foot infection)
Subjective / Review of Systems
afebrile
bp stable
CONS was oxacillin sensitive
Vital Signs / Physical Exam
Vital Signs
Vital Signs
Temp Pulse Resp BP Pulse Ox
98.6 F 77 16 155/86 96
01/17/24 07:36 01/17/24 07:36 01/17/24 07:36 01/17/24 07:36 01/17/24 07:36
Physical Exam
Constitutional: No Acute Distress
Cardiovascular: Regular Rate
Pulmonary: Symmetric and Non Labored
Gastrointestinal: Non Distended
Skin: Dry; Negative Rash or Jaundice
Wound: Other (dressing take down deferred, actively getting home IV treatment training)
Lines: PICC
Objective Data
Lab Data
Lab Results
01/16/24 07:26
01/17/24 05:12
ESR 20 mm/hour (0-20) 01/12/24 10:08
PT 13.2 Sec (11.4-14.6) 01/15/24 06:33
INR 0.97 01/15/24 06:33
APTT 28.4 Sec (23.4-35.0) 01/15/24 06:33
Estimated Creat Clear 73 ml/min 01/17/24 05:12
Lactic Acid 1.0 mmol/L (0.7-2.0) 01/12/24 10:08
Total Bilirubin 0.5 mg/dl (0.2-1.3) 01/12/24 10:08
AST 35 U/L (17-59) 01/12/24 10:08
ALT 39 U/L (0-50) 01/12/24 10:08
Alkaline Phosphatase 90 U/L (38-126) 01/12/24 10:08
C-Reactive Protein 17.60 mg/L (0.0-10.00) H 01/12/24 10:08
Most recent labs reviewed.
Micro Results:
01/12/24 10:49 Blood Culture - Final
Blood/Venous No Growth - Final Report
01/12/24 10:08 Blood Culture - Final
Blood/Venous No Growth - Final Report
01/12/24 14:00 Anaerobic Culture - Final
Toe NO ANAEROBES ISOLATED
01/12/24 14:00 Wound Culture - Preliminary
Toe Pseudomonas aeruginosa
Staphylococcus lugdunensis
Gram Stain - Preliminary
01/12/24 14:00 Tissue Culture - Final
Bone Pseudomonas aeruginosa
Staphylococcus lugdunensis
Gram Stain - Final
01/13/24 13:51 Nasal Screen MRSA (PCR) - Final
Nose MRSA not detected - performed by PCR methodology.
Care Review
Plan reviewed with: Physician (Dr Hermilo juarez)
[2024-01-17] MEDS: PATIENT'S OWN INSULIN PUMP 1.5 UNITS SC (12:58)
[2024-01-17 14:14] VITALS: BP 142/78
== END 2024-01-17 14:56 | disposition home health service (06) | DRG 253 ==
LOC: 3 WEST ACU 12:15
PROVIDERS: Nurse Practitioner; Physician Assistant; Radiology Diagnostic Radiology; Surgery Vascular Surgery; ADMITTING PHYSICIAN Internal Medicine; ATTENDING PHYSICIAN Hospitalist; CONSULT PHYSICIAN Podiatrist Foot Surgery; CONSULT PHYSICIAN Student in an Organized Health Care Education/Training Program; EMERGENCY PHYSICIAN Emergency Medicine; FAMILY PHYSICIAN Family Medicine
PROC: 0QBR0ZZ Excision of Left Toe Phalanx, Open Approach (ICD-10-PCS; 2024-01-12)
PROC: 047N3Z1 Dilation of Left Popliteal Artery using Drug-Coated Balloon, Percutaneous Approach (ICD-10-PCS; 2024-01-15)
PROC: 02HV33Z Insertion of Infusion Device into Superior Vena Cava, Percutaneous Approach (ICD-10-PCS; 2024-01-16)
DX: E11.51 Type 2 diabetes mellitus with diabetic peripheral angiopathy without gangrene (principal); L97.526 Non-pressure chronic ulcer of other part of left foot with bone involvement without evidence of necrosis; M84.478A Pathological fracture, left toe(s), initial encounter for fracture; M86.172 Other acute osteomyelitis, left ankle and foot; E11.69 Type 2 diabetes mellitus with other specified complication; I70.245 Atherosclerosis of native arteries of left leg with ulceration of other part of foot; E11.621 Type 2 diabetes mellitus with foot ulcer; E11.42 Type 2 diabetes mellitus with diabetic polyneuropathy; E78.00 Pure hypercholesterolemia, unspecified; I10 Essential (primary) hypertension; J45.909 Unspecified asthma, uncomplicated; N18.30 Chronic kidney disease, stage 3 unspecified; E11.22 Type 2 diabetes mellitus with diabetic chronic kidney disease; B96.5 Pseudomonas (aeruginosa) (mallei) (pseudomallei) as the cause of diseases classified elsewhere; B95.7 Other staphylococcus as the cause of diseases classified elsewhere; K21.9 Gastro-esophageal reflux disease without esophagitis; N40.0 Benign prostatic hyperplasia without lower urinary tract symptoms; Z79.84 Long term (current) use of oral hypoglycemic drugs; Z96.41 Presence of insulin pump (external) (internal); Z79.4 Long term (current) use of insulin; Z79.82 Long term (current) use of aspirin; Z87.891 Personal history of nicotine dependence; Z85.820 Personal history of malignant melanoma of skin; Z79.899 Other long term (current) drug therapy; Z85.72 Personal history of non-Hodgkin lymphomas
CPT/HCPCS: 88304; 88311; 37224; 37228; 71045; 73630; 75625; 75716; 76775; 80048; 80053; 80061; 80202; 81003; 82565; 82962; 83036; 83605; 84520; 85025; 85027; 85610; 85652; 85730; 86140; 87040; 87070; 87075; 87077; 87147; 87176; 87186; 87205; 87641; 93005; 93922; 93925; 96365; 99285; C1760; C1769; C1894; J2185; Q9967

== ENCOUNTER → 2024-02-28 13:03 | Outpatient (REF) | payer MEDICARE, OTHER, SELFPAY | LOC: RAD 13:03 | PROVIDERS: ATTENDING PHYSICIAN Surgery Vascular Surgery | DX: I73.9 Peripheral vascular disease, unspecified (principal) | CPT/HCPCS: 93922; 93925 ==

== ENCOUNTER → 2024-05-07 16:29 | Outpatient (REF) | payer MEDICARE, OTHER, SELFPAY | LOC: RAD 16:29 | PROVIDERS: ATTENDING PHYSICIAN Podiatrist Foot Surgery; FAMILY PHYSICIAN Family Medicine | DX: I82.401 Acute embolism and thrombosis of unspecified deep veins of right lower extremity (principal); I87.313 Chronic venous hypertension (idiopathic) with ulcer of bilateral lower extremity | CPT/HCPCS: 93971 ==

== ENCOUNTER → 2024-05-16 09:43 | Outpatient (REF) | payer MEDICARE, OTHER, SELFPAY | LOC: RAD 09:43 | PROVIDERS: ATTENDING PHYSICIAN Podiatrist Foot Surgery; FAMILY PHYSICIAN Family Medicine | DX: M86.171 Other acute osteomyelitis, right ankle and foot (principal) | CPT/HCPCS: 78315; A9503 ==

== ENCOUNTER → 2024-05-21 06:50 | Outpatient (REF) | payer MEDICARE, OTHER, SELFPAY | LOC: RAD 06:50 | PROVIDERS: ATTENDING PHYSICIAN Podiatrist Foot Surgery; FAMILY PHYSICIAN Family Medicine | DX: M86.171 Other acute osteomyelitis, right ankle and foot (principal) | CPT/HCPCS: 78803; A9569 ==

== ENCOUNTER 2024-05-24 22:08 | Inpatient (IN) | payer MEDICARE, OTHER, SELFPAY ==
[2024-05-24] VITALS (13 sets, daily range): BP systolic 137–174; BP diastolic 51–94; BMI 32.0; BMI 31.7
[2024-05-24 12:51] LABS: % Basophils 0.6 % (0-2); % Immature Granulocytes 0.4 % (0-0.5); % Lymphocytes 11.9 % (20.5-51.1); % Monocytes 8.8 % (1.7-9.3); % Neutrophils 76.3 % (42.2-75.2); Absolute Basophils 0.1 10^3/uL (0-0.2); Absolute Eosinophils 0.2 10^3/uL (0-0.7); Absolute Monocytes 0.7 10^3/uL (0.1-0.6); Absolute Neutrophils 6.4 10^3/uL (1.4-6.5); Hematocrit 44.1 % (39.0-52.0); Hemoglobin 15.5 g/dL (13.0-18.0); Mean Corp Hgb Conc. 35.1 g/dL (33.0-37.0); Mean Corpuscular Hgb 33.5 pg (27.0-31.0); Mean Corpuscular Volume 95.2 fL (80.0-94.0); Mean Platelet Volume 9.7 fL (7.4-10.4); Nucleated Red Blood Cells % 0 % (-); Platelet Count 211 10^3/uL (130-400); Red Blood Cell Count 4.63 10^6/uL (4.70-6.10); Red Cell Dist. Width 12.2 % (11.5-14.5); White Blood Cell Count 8.4 10^3/uL (4.8-10.8)
[2024-05-24 13:10] LABS: ALT (SGPT) 55 U/L (0-50); AST (SGOT) 35 U/L (17-59); Alkaline Phosphatase 119 U/L (38-126); Blood Urea Nitrogen 27 mg/dl (9-20); Calcium 9.1 mg/dl (8.4-10.2); Carbon Dioxide 25 mmol/L (22-30); Chloride 106 mmol/L (98-107); Glucose 326 mg/dl (70-99); Potassium 4.9 mmol/L (3.5-5.1); Sodium 141 mmol/L (135-145); Total Bilirubin 0.9 mg/dl (0.2-1.3); Total Protein 6.8 g/dl (6.3-8.2); eGFR > 60.00
--- NOTE | 2024-05-24 14:33 | ED.GENMED ---
History of Present Illness
General
Chief Complaint: Skin Problem
Time Seen by Provider: 05/24/24 14:00
History of Present Illness
History of Present Illness:
Patient is a 69-year-old man with history of non-Hodgkin's lymphoma, diabetes, hypertension, hyperlipidemia presenting to the emergency department for right leg swelling. Patient states that last night he noticed a lump to the medial aspect of his
right knee. This morning he woke up with redness warmth swelling to the medial knee that went up his thigh. No fevers or chills. No numbness tingling. He does state that he had a DVT study done a few weeks ago for right leg swelling which was
negative.Per chart review patient did have a white blood cell scan on 4 and there was concern for possible cellulitis of the distal right great toe and possible cellulitis of the right. He did have a follow-up MRI completed this morning. The
results are pending.
Past History
Past History
ED Past Medical History: GERD, HTN, Hypercholesterolemia and NIDDM
Social History
Tobacco: Non-smoker
Personal:
Living: with family
Employment: Employed
Phy Exam
Physical Exam
Physical Exam:
GENERAL: in no acute distress
HEENT: normocephalic, extraocular movements intact, moist oral mucosa
NECK: normal inspection
RESPIRATORY: no respiratory distress, clear to auscultation bilaterally
CARDIOVASCULAR: regular rate and rhythm
ABDOMEN/: soft, non-distended, non-tender to palpation, no rebound or guarding
EXTREMITIES: Right lower extremity more swollen compared to the left. Redness warmth tenderness to the medial aspect of the knee with erythema tracking up the medial thigh, dopplerable DP pulse
NEUROLOGIC: awake and alert, moves all extremities
SKIN: warm
Course
Orders/Labs/Results
Orders:
Orders
05/24/24 12:40
Complete Blood Count/With Diff Urgent
Comprehensive Metabolic Panel Urgent
05/24/24 14:32
US Periph Venous LOWER Ext RT Urgent
Comment:
Reason For Exam: RLE swelling
05/24/24 15:58
Piperacillin/Tazo 4.5 Gram [Zosyn] 4.5 gram in 100 ml IV NOW
Vancomycin [Vancocin] 2,000 mg 0.9% Sodium Chloride 500 ml [Nss] 500 ml IV NOW
05/24/24 16:00
Blood Culture Q30M
MADDY Source: Blood/Venous
Specimen Description:
05/24/24 16:30
Blood Culture Q30M
MADDY Source: Blood/Venous
Specimen Description:
Abnormal Lab Results
05/24/24
12:40
RBC 4.63 L 10^6/uL
(4.70-6.10)
MCV 95.2 H fL
(80.0-94.0)
MCH 33.5 H pg
(27.0-31.0)
Absolute Lymphs (auto) 1.0 L 10^3/uL
(1.2-3.4)
Absolute Monos (auto) 0.7 H 10^3/uL
(0.1-0.6)
Neutrophils % 76.3 H %
(42.2-75.2)
Lymphocytes % 11.9 L %
(20.5-51.1)
BUN 27 H mg/dl
(9-20)
Glucose 326 H mg/dl
(70-99)
ALT 55 H U/L
(0-50)
05/24/24 12:40
05/24/24 12:40
Vital Signs
Initial and Last Documented VS:
Initial Vital Signs
Temp Pulse Resp BP Pulse Ox
98.4 F 94 18 174/94 98
05/24/24 12:23 05/24/24 12:23 05/24/24 12:23 05/24/24 12:23 05/24/24 12:23
Last Documented Vital Signs
Temp Pulse Resp BP Pulse Ox
98.4 F 84 16 150/73 97
05/24/24 12:23 05/24/24 14:15 05/24/24 14:15 05/24/24 14:07 05/24/24 14:15
MDM/Problems Addressed
Differential Diagnosis Includes:
Patient is a 69 presenting to the emergency department right leg swelling redness warmth and tenderness that has been spreading since this morning. He is afebrile. Concern for cellulitis. No obvious fluctuance to suggest abscess. No knee
swelling to suggest septic arthritis. Also considered DVT. Will obtain ultrasound. Blood work obtained prior to my evaluation shows a normal WBC. Will obtain blood cultures. Patient will need admission for IV antibiotics for skin infection and
possible osteo of the right great toe.
*Critical Care Note
Total Time (30-74mins, 75-104mins- exclusive of procedures): Not Applicable
Update Note
Update Note:
On reevaluation patient resting comfortably. The redness has not surpassed the outlined areas. DVT study negative. Will start patient on Vanco Zosyn given his comorbidities. Discussed with hospitalist who accepted patient to their service
ED Attending Note
-
Portions of this chart may have been created with voice recognition software.� Occasional wrong word or��sound alike� substitutions may have occurred due to the inherent limitations of voice recognition software.
Discharge Plan
Departure
Prescriptions:
No Action
multivitamin 1 EACH tablet
1 ea PO DAILY
aspirin 81 MG tablet,chewable
81 mg PO DAILY
esomeprazole magnesium [Nexium] 20 MG capsule,delayed release(DR/EC)
20 mg PO DAILYPRN PRN (Reason: GERD)
Eylea 2 MG/0.05 ML syringe
2 mg intravitreal Q8W
Jardiance 25 MG tablet
25 mg PO DAILY
cyclosporine [Restasis] 10 DROPS dropperette
1 drp BOTH EYES DAILY
rosuvastatin 10 MG tablet
20 mg PO QPM
losartan 50 mg Tablet
50 mg PO QPM
ketoconazole 2 % Shampoo
1 applic TOPICAL TUFR
tamsulosin [Flomax] 0.4 mg Capsule
0.4 mg PO DAILY
calcium polycarbophil [FiberCon] 625 mg Tablet
625 mg PO DAILY
docusate sodium [Colace] 100 mg Capsule
100 mg PO DAILY
Santyl 250 unit/gram Ointment
1 applic TOPICAL DAILY
finasteride 5 mg Tablet
5 mg PO DAILY
vitamins A,C,U-sanr-trbfhp 4,296 mcg-226 mg-90 mg Capsule
1 cap PO DAILY
Patient Own Insulin Pump
0 unit SC .VIA HUMALOG
meropenem 1 gram Recon Soln
1,000 mg IV Q8H 28 Days Qty: 0 0RF
Referrals:
Piter Duffy MD [Family Provider] -
Interventions
Interventions:
*Risk Screen - Suicide Last Done: 05/24/24 12:23
*General Assessment Last Done: 05/24/24 12:23
*Neglect/Abuse Screening Last Done: 05/24/24 12:23
*ED- Fall Risk Assessment Last Done: 05/24/24 14:00
*ED COVID-19 Vaccine History Last Done: 05/24/24 14:00
ED-Skin Assessment Last Done: 05/24/24 14:01
Discharge Date and Time
Print Language: CROATIAN
[2024-05-24] MEDS: ZOSYN 100 IV (16:22)
[2024-05-24] MEDS: VANCOCIN 540 MG IV (16:35)
--- NOTE | 2024-05-24 17:58 | EDRN ---
awaiting for hospitalist to admit the pt
--- NOTE | 2024-05-24 19:46 | EDRN ---
still awaiting for the pt to be admitted by hospitalist
--- NOTE | 2024-05-24 21:18 | HPS.HSE ---
Family Physician
-
Family Physician: Piter Duffy
Chief Complaint
-
concerns for cellulitis to the right medial thigh/knee.
History of Present Illness
HPI
69M HX f non-Hodgkin's lymphoma, diabetes, hypertension, hyperlipidemia, HX Left toe osteomyelitis seen at ER
-reports right leg swelling since last night he noticed a lump to the medial aspect of his right knee.
- he woke up this morning with redness warmth swelling to the medial knee that went up his thigh.
- No fevers or chills. No numbness tingling.
- NEG Sono evidence of DVT few weeks ago for right leg swelling
- Per chart review patient did have a WBC scan on 05/21/24 and there was concern for possible cellulitis of the distal right great toe and possible cellulitis of the right.
- follow-up MRI completed this morning
Medical History
Past Medical History
Past Medical History: Reports HTN, Hypercholesterolemia, IDDM (on insulin pump ), Renal Failure (CKD2/3a), Valvular Disease (PAD, S/P angiogram on 01/15/24 and status post angioplasty by vascular surgeon for critically limb ischemia of LLEx ) and
Other
Additional Past Medical History:
Peripheral neuropathy
HX non-Hodgkin lymphoma
HX Melanoma
HX Pancreatic cyst (w/u pending OP)
Past Surgical History: Reports Orthopedic (s/p resection of the joint ) and Other (S/P angiogram on 01/15/24 and status post angioplasty by vascular surgeon for critically limb ischemia of LLEx )
Social History
Tobacco: Non-smoker
Alcohol: None
Drug: None
Family History
Family History: Not pertinent
Allergies / Home Medications
Allergies reflects when Allergies were last updated in [facility] [employer].
Home Medications with original date entered in [facility]
Allergy/Medication List:
Allergies
Allergy/AdvReac Type Severity Reaction Status Date / Time
adhesive Allergy Unknown Unknown Verified 05/24/24 12:23
Home Medications
aflibercept 2 mg/0.05 mL intravitreal syringe (Eylea) 2 mg intravitreal Q8W 03/03/20
aspirin 81 mg chewable tablet 81 mg PO DAILY 03/03/20
empagliflozin 25 mg tablet (Jardiance) 25 mg PO DAILY 03/03/20
multivitamin 1 ea PO DAILY 03/03/20
rosuvastatin 10 mg tablet 20 mg PO QPM 03/03/20
Patient Own Insulin Pump 0 unit SC .VIA HUMALOG 01/12/24
calcium polycarbophil 625 mg tablet (FiberCon) 625 mg PO DAILY 01/12/24
docusate sodium 100 mg capsule (Colace) 100 mg PO DAILY 01/12/24
finasteride 5 mg tablet 5 mg PO DAILY 01/12/24
losartan 50 mg tablet 50 mg PO QPM 01/12/24
tamsulosin 0.4 mg capsule (Flomax) 0.4 mg PO DAILY 01/12/24
vitamins A,C,E-ulyu-sitalk 4,296 mcg-226 mg-90 mg capsule 1 cap PO DAILY 01/12/24
esomeprazole magnesium 20 mg capsule,delayed release (Nexium) 20 mg PO DAILY PRN acid reflux 05/24/24
Review of Systems
-
Constitutional: Reports No Symptoms
EENT: Reports No Symptoms
Respiratory: Reports No Symptoms
Cardiac: Reports No Symptoms
Abdomen/GI: Reports No Symptoms
: Reports No Symptoms
Musculoskeletal: Reports See HPI
Skin: Reports No Symptoms
Neurological: Reports No Symptoms
Endocrine: Reports No Symptoms
Hematologic/Lymphatic: Reports No Symptoms
Psych: Reports No Symptoms
Physical Exam
Vital Signs
Vital Signs
Temp Pulse Resp BP Pulse Ox
97.6 F 82 16 137/51 96
05/24/24 17:07 05/24/24 20:24 05/24/24 20:24 05/24/24 20:24 05/24/24 20:24
Physical Exam
General: Well Developed, Well Nourished and No Apparent Distress
HEENT: NormoCephalic, Moist mucous membranes and Atraumatic
Respiratory: Clear
Cardiac: S1/S2 and Regular Rhythm; No Murmur or Rub
GI: Soft, Non Tender, Non Distended and Normal Bowel Sounds; No Organomegaly
Rectal: Deferred by Provider
Musculoskeletal: Other (Right lower extremity more swollen compared to the left. Redness warmth tenderness to the medial aspect of the knee with erythema tracking up the medial thigh, dopplerable DP pulse)
Skin: No Rash
Neuro: Nonfocal/grossly intact
Laboratory Results
-
05/24/24 12:40
05/24/24 12:40
Laboratory Results
Total Bilirubin 0.9 mg/dl (0.2-1.3) 05/24/24 12:40
AST 35 U/L (17-59) 05/24/24 12:40
ALT 55 U/L (0-50) H 05/24/24 12:40
Alkaline Phosphatase 119 U/L (38-126) 05/24/24 12:40
Data Reviewed
-
Diagnostic Radiology: Report Reviewed by me
Ultrasound: Report Reviewed by me
Lab Data: Labs Reviewed by me
Old Records: Reviewed
Impression/Plan
-
Vital Signs
Temp Pulse Resp BP Pulse Ox
97.6 F 82 16 137/51 96
05/24/24 17:07 05/24/24 20:24 05/24/24 20:24 05/24/24 20:24 05/24/24 20:24
Lab
01/16/24 05/24/24
07:26 12:40
WBC 8.4
Hgb 15.5
Plt Count 211
BUN 27 H
Creatinine 1.1 1.1
eGFR > 60.00 > 60.00
05/24/24 OP MRI report pending
05/24/24 Rt Marsha US
- No sonographic evidence for RIGHT lower extremity deep venous thrombosis.
05/21/24 NM Labeled WBC scan
- Focus of uptake of activity involving the distal right great toe correlating at least in part with uptake of activity seen at same site on recent bone scan.
- Findings are at least suspicious for osteomyelitis.
- Minor soft tissue uptake of activity throughout the right foot slightly greater than left which could represent mild right foot cellulitis.
Last hospitalist admission:
Date of Admission: 01/12/24 - Date of Discharge: 01/17/24
DC Dxs: Left toe osteomyelitis. Chronic limb threatening ischemia of left lower extremity status post angioplasty.
ASSESSMENT & PLAN
Cellulitis of Rt Marsha with possible Osteomyelitis of Rt big toe
Pending OP MRI report to r/o OM Rt toe (outpt MRI read pending)
Diabetic Foot Infection
HX PAD
HX IV Meropenem for OM in Jan 2024
Prior micro hammad from previous ID note :
- 01/03 outpatient wound culture on paper chart: moderate PSA, no sensi; gram stain mod GNR and rare GPC in pairs/clusters
- 01/11 wound and tissue cultures: P aeruginosa (R zosyn, S ciprofloxacin), CONS
- MRSA nasal screen negative
- path remains pending
- s/p resection of the Lt 5th toe distal joint - grossly infected tissue sent for culture in progress, margin sent for path
- First dose of vancomycin and Zosyn given by ER
- f/u OP MRI report
- ID consult
HX Pancreatic cyst - pre cancerous
- Pending Whipple at [facility] on 05/28/24Monday
HX PAD
S/P angiogram on 01/15/24 and status post angioplasty by vascular surgeon for critically limb ischemia of LLEx
IDDM
- On insulin pump
- [employer] Farxiga
- Diabetes [employer] input appreciated
Current eGFR > 60 today and > 60 01/16/24
CKD2 HX
- Observe Cr
Benign Hypertension:
- on [employer] losartan 50 mg p.o. daily
Hyperlipidemia:
- on ELENO rosuvastatin
BPH:
- on Proscar 5 mg p.o. daily and tamsulosin 0.4 mg p.o. daily
Other PMHx:
Peripheral neuropathy
HX non-Hodgkin lymphoma
HX Melanoma
HX Pancreatic cyst (w/u pending OP)
DVT prophylaxis: SQH
Full code
IP MS
[2024-05-24] MEDS: COZAAR 50 MG PO (21:55)
--- NOTE | 2024-05-24 23:00 | PTCARENOTE ---
Pt. admitted from [facility] AAO x 3, vs stable, call suresh within reach.
[2024-05-24] MEDS: NSS 1000 IV (23:26)
[2024-05-24] MEDS: FLUSH (NSS) 1 FLUSH IV (23:28)
[2024-05-24] MEDS: ZOSYN 50 IV (23:31)
[2024-05-24 23:53] LABS: Glucose - Point of Care 193 mg/dl (70-99)
[2024-05-25] MEDS: ZOSYN 50 IV ×2 (05:18→12:05)
[2024-05-25 05:52] VITALS: BMI 31.7
[2024-05-25] MEDS: VANCOCIN 530 MG IV (06:42)
[2024-05-25 07:31] VITALS: BP 139/53
[2024-05-25 07:41] LABS: Glucose - Point of Care 126 mg/dl (70-99)
[2024-05-25 07:58] LABS: Hematocrit 40.4 % (39.0-52.0); Hemoglobin 14.1 g/dL (13.0-18.0); Mean Corp Hgb Conc. 34.9 g/dL (33.0-37.0); Mean Corpuscular Hgb 33.3 pg (27.0-31.0); Mean Corpuscular Volume 95.3 fL (80.0-94.0); Mean Platelet Volume 9.8 fL (7.4-10.4); Platelet Count 205 10^3/uL (130-400); Red Blood Cell Count 4.24 10^6/uL (4.70-6.10); Red Cell Dist. Width 12.3 % (11.5-14.5); White Blood Cell Count 6.6 10^3/uL (4.8-10.8)
[2024-05-25 08:02] LABS: INR 1.08; PT 14.3 Sec (11.4-14.6)
[2024-05-25] MEDS: COLACE 100 MG PO (08:30)
[2024-05-25] MEDS: FLOMAX 0.4 MG PO (08:30)
[2024-05-25] MEDS: LOW STRENGTH ASPIRIN 81 MG PO (08:30)
[2024-05-25] MEDS: PROSCAR 5 MG PO (08:30)
[2024-05-25] MEDS: FIBERCON 625 MG PO (08:30)
[2024-05-25] MEDS: HEPARIN 5000 UNITS SC ×2 (08:32→19:56)
[2024-05-25 08:34] LABS: Blood Urea Nitrogen 27 mg/dl (9-20); Calcium 8.3 mg/dl (8.4-10.2); Carbon Dioxide 23 mmol/L (22-30); Chloride 110 mmol/L (98-107); Estimated Creatinine Clearance 68 ml/min; Glucose 135 mg/dl (70-99); Potassium 4.3 mmol/L (3.5-5.1); Sodium 141 mmol/L (135-145); eGFR > 60.00
--- NOTE | 2024-05-25 08:40 | W.PN.HOSP.TC ---
Today's Communication/Plan
-
see bold
Assessment / Plan
Assessment / Plan
HPI: 69-year-old man with history of non-Hodgkin's lymphoma, diabetes, hypertension, hyperlipidemia presenting to the emergency department for right leg swelling. Patient states that last night he noticed a lump to the medial aspect of his right
knee. This morning he woke up with redness warmth swelling to the medial knee that went up his thigh. No fevers or chills. No numbness tingling. He does state that he had a DVT study done a few weeks ago for right leg swelling which was
negative.Per chart review patient did have a white blood cell scan on 05 21 and there was concern for possible cellulitis of the distal right great toe and possible cellulitis of the right. He did have a follow-up MRI completed this morning. The
results are pending.
05/24/24 OP MRI report pending
05/24/24 Rt LE US
- No sonographic evidence for RIGHT lower extremity deep venous thrombosis.
05/21/24 NM Labeled WBC scan
- Focus of uptake of activity involving the distal right great toe correlating at least in part with uptake of activity seen at same site on recent bone scan.
- Findings are at least suspicious for osteomyelitis.
- Minor soft tissue uptake of activity throughout the right foot slightly greater than left which could represent mild right foot cellulitis.
Assessment/plan:
#Right inner thigh cellulitis
#Suspected osteomyelitis of right big toe
Patient had an outpatient MRI on 05/24, f/u results
Continue vancomycin/Zosyn
ID consulted, trend fever and white count
#Precancerous pancreatic cyst
Scheduled for Whipple at [facility] on 05/28/24Monday
#Peripheral artery disease
Status post angiogram and angioplasty for left critical limb ischemia January 2024
#History of left fifth toe osteomyelitis status post resection January 2024
#Diabetes
Continue insulin pump, diabetes nurse practitioner consulted
#Essential hypertension
Continue losartan 50 mg daily
#Hyperlipidemia
Continue statin
#BPH
Continue Proscar and Flomax
#Non-Hodgkin's lymphoma
#Obesity due to excess calories
Affects all aspects of care
DVT prophylaxis�subcu Lovenox
Full code
Total time spent to see the patient on the floor, examine the patient, review data and lab results, discuss treatment plan with patient, nursing staff around 51 minutes.
Physical Exam
General: Obese, no acute distress
HEENT: Normocephalic, Atraumatic, EOMI, MMM
Respiratory: Clear to Auscultation bilaterally
Cardiac: Normal S1/S2, Regular Rate and Rhythm
GI: Soft, Nontender, Nondistended, Normal Bowel Sounds
Extremities: No Clubbing, Cyanosis
Erythema of the medial right thigh with a palpable lump
Discoloration of right foot/ankle
Right first toe ulcer dressed
Left fifth toe amputation well-healed
Anticipated Discharge: 24 - 48 hours
Subjective/Interval History
-
Date of Service: May 25, 2024
Reports improvement in right inner thigh pain. No fever, no vomiting. No chest pain, no shortness of breath.
Objective Data
-
Labs:
Laboratory Results
05/25/24
07:29
WBC 6.6
Hgb 14.1
Hct 40.4
Plt Count 205
PT 14.3
INR 1.08
Sodium 141
Potassium 4.3
Chloride 110 H
Carbon Dioxide 23
BUN 27 H
Creatinine 1.2
Glucose 135 H
Calcium 8.3 L
Vital Signs:
Vital Signs
Temp Pulse Resp BP Pulse Ox
98.9 F 72 18 139/53 97
05/25/24 07:31 05/25/24 07:31 05/25/24 07:31 05/25/24 07:31 05/25/24 07:31
I&O
05/24/24 05/25/24 05/26/24
06:59 06:59 06:59
Intake Total 480 / 480
Balance 480 / 480
--- NOTE | 2024-05-25 10:53 | PHA.VAN.IN ---
Assessment
- Assessment
Renal Function: Appears similar to baseline
Concomitant Antimicrobials: PIPERACILLIN/TAZOBACTAM
AUC Dosing Plan
- Dosing Variables
Dosing Weight (kg): 97
Dosing CrCl (ml/min): 68
- Empiric Dosing
Initial / Loading Dose: VANCO 2000MG X1, FOLLOWED BY VANCO 1500MG X1
Maintenance Regimen: VANCO 1000MG Q12H
Estimated AUC (mcg*h/mL): 506
Estimated Peak (mcg*h/mL): 28.4
Estimated Trough (mcg/ml): 15.0
Estimated Half Life (H): 11.4
- Monitoring
No levels ordered at this time: CONSIDER LEVEL PRIOR TO 4TH MAINTENANCE DOSE
Pharmacokinetics Vancomycin I
- -
Patient Age: 69
Patient Sex: Male
Vancomycin Day #: 2
Indication: Skin And Soft Tissue
Requesting Provider: DR. VICKERS
Height / Weight:
Height 5 ft 9 in
Actual Weight 97.239 kg
Pertinent Past Medical History: CKD, DM, OBESITY (BMI 31)
- Vital Signs / Lab Results
Temp Pulse Resp BP Pulse Ox
98.9 F 72 18 139/53 97
05/25/24 07:31 05/25/24 07:31 05/25/24 07:31 05/25/24 07:31 05/25/24 07:31
Lab Results - Hematology
05/24/24 05/25/24
12:40 07:29
WBC 8.4 6.6
Lab Results - Chemistry
05/24/24 05/25/24
12:40 07:29
BUN 27 H 27 H
Creatinine 1.1 1.2
Estimated Creat Clear 68
Albumin 4.0
--- NOTE | 2024-05-25 11:09 | CM ---
Reviewed pt's chart, met with pt.
Pt is a 69 year old male, admitted with cellulitis. Patient also states his right foot has an infection.
Pt reports he lives alone in a 2SH, 2 steps to enter, has a cat, has 3 supportive children, supportive SO for 10 years. Pt reports his PCP is his POA. 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 Pt is walking around room, into bathroom on his own. He used
[facility] and [facility] in the past for IV antibiotic management.
Patient reports he is to have whipple surgery at [place] on Monday. He is awaiting his PCP to come see him and to talk to ID about whether he can proceed with surgery on Monday.
PCP: Piter Duffy III
Pharmacy: [facility] [place].
D/C plan: home with anticipated no needs.
CM will follow with discharge plan updates.
[2024-05-25 11:10] LABS: Glucose - Point of Care 178 mg/dl (70-99)
--- NOTE | 2024-05-25 12:19 | CON.ID ---
Consultation
-
Date/Time Consultation Requested: 05/24/24 22:32
Date/Time Consultation Performed: 05/25/24 12:44
Requesting Provider: Dr Shah
Performing Provider: Dr Bowen
Reason for Consultation: Rt big toes OM , diabetic foot infection
Chief Complaint / Past History
Chief Complaint
concerns for cellulitis to the right medial thigh/knee.
History of Present Illness
Mr Gomez is a 69 year old male with history of non-hodgkins lymphoma, DM2, right great toe ulcer with probable underlying osteomyelitis under the care of Lanette Whiting 5th toe osteomyelitis due to Pseudomonas who presented here for right leg
swelling and swelling posterior to the R knee. On the day of arrival he noted redness, warmth and swelling from the medial knee to the thigh, no fevers or chills. Had an US of the LE several weeks ago without DVT. He doesnt recall any trauma to
the thigh, no prior wounds, he does have notable xerosis.
Precancerous pancreatic cyst - Scheduled for Whipple at [facility] on 05/28/24Monday
Since arrival here shes afebrile, bp stable, wbc 6.6, hgb 14.1, plt 205, L shift is noted, cr 1.2, t bili 0.9, ast 35, alt 55, alk phos 119, 05/24 peripheal vasc: no DVT, had known right great toe ulcer, 05/21/24 Focus of uptake of activity involving
the distal right great toe correlating at least in part with uptake of activity seen at same site on recent bone scan. Findings are at least suspicious for osteomyelitis. 05/16 Three-phase positive bone scan throughout the right foot particularly
involving the great toe distally. Differential includes osteomyelitis, cellulitis, stress fractures, complex regional pain syndrome and diabetic osteoarthropathy, less likely soft tissue malignancy. Recommend correlation with radiographs and
possibly MRI, as clinically indicated. blood cultures x2 are no growth to date, currently on vancomycin and zosyn
Past History
Additional Past Medical History:
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
Peripheral neuropathy
HX non-Hodgkin lymphoma
HX Melanoma
HX Pancreatic cyst (w/u pending OP)
Additional Past Surgical History:
Orthopedic (s/p resection of the joint ) and Other (S/P angiogram on 01/15/24 and status post angioplasty by vascular surgeon for critically limb ischemia of LLEx )
Allergy History:
adhesive Allergy (Verified 05/24/24 21:53)
Unknown
Medications Reviewed: Yes
Social History
Tobacco: Non-Smoker
Alcohol: None
Drug: None
Family History
Family History: Not Pertinent
Review of Systems
Review of Systems
General: Negative Fever or Chills
All systems: All other systems were reviewed and were negative
Vital Signs
Temp Pulse Resp BP Pulse Ox
98.9 F 72 18 139/53 97
05/25/24 07:31 05/25/24 07:31 05/25/24 07:31 05/25/24 07:31 05/25/24 07:31
Physical Exam
Physical Exam
Constitutional: No Acute Distress
Cardiovascular: Regular Rate and S1/S2; Negative Murmur or Rub
Pulmonary: Clear and Symmetric; Negative Wheezes, Rales or Rhonchi
Gastrointestinal: Soft, Non Tender, Non Distended and Normal Bowel Sounds
Extremities: Other (R anterior medial quad region with redness, swelling, tenderness, firm but not fluctuant, lymphangitic streaking has resolved)
Skin: Warm and Dry; Negative Rash or Jaundice
Wound: Other (right great toe ulcer without definitive probe to bone, clean, no erythema/warmth/tenderness or drainage)
Lab / Diagnostic Study Results
05/25/24 07:29
05/25/24 07:29
Abs Immat Gran (auto) 0.0 10^3/uL (0-0.05) 05/24/24 12:40
Absolute Neuts (auto) 6.4 10^3/uL (1.4-6.5) 05/24/24 12:40
Absolute Lymphs (auto) 1.0 10^3/uL (1.2-3.4) L 05/24/24 12:40
Absolute Monos (auto) 0.7 10^3/uL (0.1-0.6) H 05/24/24 12:40
Absolute Basos (auto) 0.1 10^3/uL (0-0.2) 05/24/24 12:40
Immature Gran % 0.4 % (0-0.5) 05/24/24 12:40
Neutrophils % 76.3 % (42.2-75.2) H 05/24/24 12:40
Lymphocytes % 11.9 % (20.5-51.1) L 05/24/24 12:40
Monocytes % 8.8 % (1.7-9.3) 05/24/24 12:40
Eosinophils % 2.0 % (0-6) 05/24/24 12:40
Basophils % 0.6 % (0-2) 05/24/24 12:40
PT 14.3 Sec (11.4-14.6) 05/25/24 07:29
INR 1.08 05/25/24 07:29
Microbiology Results
Micro:
05/24/24 16:15 Blood Culture - Pending
Blood/Venous
05/24/24 16:15 Blood Culture - Pending
Blood/Venous
Assessment / Plan
R quadriceps phlegmon vs abscess
- not in the typical location of a bakers cyst, more proximal and medial
- decreased lymphangitis spread
- US of the area ordered, if myositis is seen would consult surgery
- agree with vancomycin
Diabetic Foot Infection and ulcer
Osteomyelitis - R great toe
- known to Dr Arciniega DPM
- blood cultures x2
- US not c/w DVT
- 02/27/23 had IVANIA of the BL LE: no high grade stenosis, infrapopliteal small vessel disease on the right
- agree with vancomycin and zosyn
Would not delay planned Whipple Procedure (monday) on the basis of the current infections (R great toe Osteomyelitis and R thigh phlegmon vs abscess), will treat medically through the and contact his [facility] surgeon Dr Hernandez [phone]
monday; anticipate either facilitating DC monday with high bioavailability orals or possibly PICC, of if Dr Hernandez prefers a transfer (unlikely)
Care Review
Plan reviewed with: Physician (Dr Navarrete at patients request - would not delay surgery)
[2024-05-25 15:31] VITALS: BP 170/59
[2024-05-25 17:12] LABS: Glucose - Point of Care 168 mg/dl (70-99)
[2024-05-25] MEDS: ZOSYN 100 IV (17:17)
[2024-05-25] MEDS: CRESTOR 20 MG PO (18:27)
[2024-05-25] MEDS: VANCOCIN 200 IV (18:27)
[2024-05-25] MEDS: COZAAR 50 MG PO (18:35)
[2024-05-25] MEDS: NSS 1000 IV (18:36)
[2024-05-25] MEDS: COZAAR PO (18:43)
[2024-05-25 21:17] LABS: Glucose - Point of Care 194 mg/dl (70-99)
[2024-05-25 23:08] VITALS: BP 150/69
[2024-05-26] MEDS: MORPHINE SULFATE 2 MG IV ×2 (01:52→05:57)
[2024-05-26] MEDS: VANCOCIN 200 IV ×2 (05:06→18:10)
[2024-05-26] MEDS: ZOSYN 100 IV ×4 (05:06→17:33)
[2024-05-26 05:58] VITALS: BMI 32.4
[2024-05-26 07:02] LABS: Glucose - Point of Care 145 mg/dl (70-99)
[2024-05-26 07:36] VITALS: BP 124/63
--- NOTE | 2024-05-26 08:01 | W.PN.HOSP.TC ---
Today's Communication/Plan
-
For probable discharge tomorrow so he can keep his [facility] surgery appt on Monday
Assessment / Plan
Assessment / Plan
HPI: 69-year-old man with history of non-Hodgkin's lymphoma, diabetes, hypertension, hyperlipidemia presenting to the emergency department for right leg swelling. Patient states that last night he noticed a lump to the medial aspect of his right
knee. This morning he woke up with redness warmth swelling to the medial knee that went up his thigh. No fevers or chills. No numbness tingling. He does state that he had a DVT study done a few weeks ago for right leg swelling which was
negative.Per chart review patient did have a white blood cell scan on 05 21 and there was concern for possible cellulitis of the distal right great toe and possible cellulitis of the right. He did have a follow-up MRI completed this morning. The
results are pending.
05/24/24 OP MRI report pending
05/24/24 Rt LE US
- No sonographic evidence for RIGHT lower extremity deep venous thrombosis.
05/21/24 NM Labeled WBC scan
- Focus of uptake of activity involving the distal right great toe correlating at least in part with uptake of activity seen at same site on recent bone scan.
- Findings are at least suspicious for osteomyelitis.
- Minor soft tissue uptake of activity throughout the right foot slightly greater than left which could represent mild right foot cellulitis.
Assessment/plan:
#Right inner thigh cellulitis
R thigh Ultrasound negative for abscess
Appreciate ID input, continue vancomycin and Zosyn for now
Likely can be discharged tomorrow on oral antibiotics so he can keep his [facility] appointment on Monday
ID to discuss with patient's [facility] surgeon Dr Hernandez [phone] tomorrow/Monday
#Suspected osteomyelitis of right big toe
Patient had an outpatient MRI on 05/24, f/u results
Patient known to Dr. Arciniega/podiatry
RLE US neg DVT
On vancomycin/Zosyn as above
ID following
#Precancerous pancreatic cyst
Scheduled for Whipple at [facility] on 05/28/24Monday
#Peripheral artery disease
Status post angiogram and angioplasty for left critical limb ischemia January 2024
#History of left fifth toe osteomyelitis status post resection January 2024
#Diabetes
Continue insulin pump, diabetes nurse practitioner consulted
#Essential hypertension
Continue losartan 50 mg daily
#Hyperlipidemia
Continue statin
#BPH
Continue Proscar and Flomax
#Non-Hodgkin's lymphoma
#Obesity due to excess calories
Affects all aspects of care
DVT prophylaxis�subcu Lovenox
Full code
Total time spent to see the patient on the floor, examine the patient, review data and lab results, discuss treatment plan with patient, nursing staff around 41 minutes.
Physical Exam
General: Obese, no acute distress
HEENT: Normocephalic, Atraumatic, EOMI, MMM
Respiratory: Clear to Auscultation bilaterally
Cardiac: Normal S1/S2, Regular Rate and Rhythm
GI: Soft, Nontender, Nondistended, Normal Bowel Sounds
Extremities: No Clubbing, Cyanosis
Erythema of the medial right thigh with a palpable lump
Discoloration of right foot/ankle
Right first toe ulcer dressed
Left fifth toe amputation well-healed
Anticipated Discharge: Within 24 hours
Subjective/Interval History
-
Date of Service: May 26, 2024
Patient reports improvement in his right inner thigh pain. No chest pain, shortness of breath. No fever, no vomiting.
Objective Data
-
Vital Signs:
Vital Signs
Temp Pulse Resp BP Pulse Ox
97.8 F 64 18 124/63 99
05/26/24 07:36 05/26/24 07:36 05/26/24 07:36 05/26/24 07:36 05/26/24 07:36
I&O
05/25/24 05/26/24 05/27/24
06:59 06:59 06:59
Intake Total 480 / 480 3270 / 3270
Balance 480 / 480 3270 / 3270
[2024-05-26] MEDS: FIBERCON 625 MG PO (08:27)
[2024-05-26] MEDS: COLACE 100 MG PO (08:27)
[2024-05-26] MEDS: FLOMAX 0.4 MG PO (08:27)
[2024-05-26] MEDS: LOW STRENGTH ASPIRIN 81 MG PO (08:27)
[2024-05-26] MEDS: PROSCAR 5 MG PO (08:27)
[2024-05-26] MEDS: HEPARIN 5000 UNITS SC ×2 (08:28→20:16)
--- NOTE | 2024-05-26 09:28 | PHA.VAN.FU ---
Vancomycin Assessment / Plan
- Assessment
Renal Function: SCR Increasing
WBC's are: WNL
In the past 24 hrs, patient has been: Afebrile
Concomitant Antimicrobials: PIPERACILLIN/TAZOBACTAM
- Dosing Plan
Continue: VANCO 1000MG Q12H
- Monitoring Plan
Peak Level: 05/26 @2100
Trough Level: 05/27 @0530
- Follow Up
Pharmacy will continue to follow.
Vancomycin Follow UP
- -
Patient Age: 69
Patient Sex: Male
Vancomycin Day #: 3
Indication: Skin And Soft Tissue
Requesting Provider: DR. VICKERS
Height / Weight:
Height 5 ft 9 in
Actual Weight 99.535 kg
Pertinent Past Medical History: CKD, DM, OBESITY (BMI 31)
- Vital Signs / Lab Results
Temp Pulse Resp BP Pulse Ox
97.8 F 64 18 124/63 99
05/26/24 07:36 05/26/24 07:36 05/26/24 07:36 05/26/24 07:36 05/26/24 07:36
Lab Results - Hematology
05/24/24 05/25/24
12:40 07:29
WBC 8.4 6.6
Lab Results - Chemistry
05/24/24 05/25/24
12:40 07:29
BUN 27 H 27 H
Creatinine 1.1 1.2
Estimated Creat Clear 68
Albumin 4.0
Microbiology Results
05/24/24 16:15 Blood Culture - Preliminary
Blood/Venous No Growth in 24 hours- Final report to follow
05/24/24 16:15 Blood Culture - Preliminary
Blood/Venous No Growth in 24 hours- Final report to follow
[2024-05-26 11:37] LABS: Glucose - Point of Care 162 mg/dl (70-99)
[2024-05-26 15:00] VITALS: BP 116/63
[2024-05-26 16:35] LABS: Glucose - Point of Care 142 mg/dl (70-99)
--- NOTE | 2024-05-26 16:40 | W.PN.ID1 ---
Date of Service
Date of Service: May 26, 2024
Today's Communication
Would not delay planned Whipple Procedure (monday) on the basis of the current infections (R great toe Osteomyelitis and R phlebitis). Stable for dc in the AM with augmentin and doxycycline x2 weeks
Assessment / Plan
R quadriceps phlegmon vs abscess
- not in the typical location of a bakers cyst, more proximal and medial; phlebitis by US
- decreased lymphangitis spread
- c/w vancomycin tonight
- tomorrow transition to augmentin/doxycycline
Diabetic Foot Infection and ulcer
Osteomyelitis - R great toe
- known to Dr Arciniega DPM
- blood cultures x2
- US not c/w DVT
- 02/27/23 had IVANIA of the BL LE: no high grade stenosis, infrapopliteal small vessel disease on the right
- agree with vancomycin and zosyn - tomorrow transition to augmentin/doxycycline
Would not delay planned Whipple Procedure (monday) on the basis of the current infections (R great toe Osteomyelitis and R phlebitis). Stable for dc in the AM with augmentin and doxycycline x2 weeks
I will contact his [facility] surgeon Dr Hernandez [phone] monday and update
Patient can schedule follow up with me in about 3 weeks after discharge from [facility] or follow up with [facility] ID.
Chief Complaint
-: Cellulitis
Subjective / Review of Systems
afebrile
bp stable
no events overnight
Vital Signs / Physical Exam
Vital Signs
Vital Signs
Temp Pulse Resp BP Pulse Ox
97.6 F 66 16 116/63 97
05/26/24 15:00 05/26/24 15:00 05/26/24 15:00 05/26/24 15:00 05/26/24 15:00
Physical Exam
Constitutional: No Acute Distress
Cardiovascular: Regular Rate and S1/S2; Negative Murmur or Rub
Pulmonary: Clear and Symmetric; Negative Wheezes or Rales
Gastrointestinal: Soft, Non Tender, Non Distended and Normal Bowel Sounds
Extremities: Other (phlebitis of the right distal quad)
Skin: Warm and Dry; Negative Rash or Jaundice
Objective Data
Lab Data
Lab Results
05/25/24 07:29
05/25/24 07:29
PT 14.3 Sec (11.4-14.6) 05/25/24 07:29
INR 1.08 05/25/24 07:29
Estimated Creat Clear 68 ml/min 05/25/24 07:29
Total Bilirubin 0.9 mg/dl (0.2-1.3) 05/24/24 12:40
AST 35 U/L (17-59) 05/24/24 12:40
ALT 55 U/L (0-50) H 05/24/24 12:40
Alkaline Phosphatase 119 U/L (38-126) 05/24/24 12:40
Most recent labs reviewed.
Micro Results:
05/24/24 16:15 Blood Culture - Preliminary
Blood/Venous No Growth in 48 hours- Final report to follow
05/24/24 16:15 Blood Culture - Preliminary
Blood/Venous No Growth in 48 hours- Final report to follow
[2024-05-26] MEDS: CRESTOR 20 MG PO (17:33)
[2024-05-26] MEDS: COZAAR 50 MG PO (17:33)
[2024-05-26] MEDS: ROXICODONE 5 MG PO (20:36)
[2024-05-26 21:25] LABS: Glucose - Point of Care 215 mg/dl (70-99)
[2024-05-26 23:20] VITALS: BP 142/67
[2024-05-27] MEDS: ZOSYN 100 IV ×2 (00:37→05:37)
[2024-05-27 00:42] LABS: Vancomycin Peak 18.2 ug/ml (18-26)
[2024-05-27 06:00] VITALS: BMI 31.3
[2024-05-27] MEDS: ROXICODONE 5 MG PO (06:10)
[2024-05-27] MEDS: VANCOCIN 200 IV (06:37)
[2024-05-27 06:48] LABS: Hematocrit 39.9 % (39.0-52.0); Hemoglobin 13.8 g/dL (13.0-18.0); Mean Corp Hgb Conc. 34.6 g/dL (33.0-37.0); Mean Corpuscular Hgb 33.3 pg (27.0-31.0); Mean Corpuscular Volume 96.4 fL (80.0-94.0); Mean Platelet Volume 10.1 fL (7.4-10.4); Platelet Count 215 10^3/uL (130-400); Red Blood Cell Count 4.14 10^6/uL (4.70-6.10); Red Cell Dist. Width 12.1 % (11.5-14.5); White Blood Cell Count 6.1 10^3/uL (4.8-10.8)
[2024-05-27 07:24] LABS: Blood Urea Nitrogen 18 mg/dl (9-20); Calcium 8.7 mg/dl (8.4-10.2); Carbon Dioxide 24 mmol/L (22-30); Chloride 106 mmol/L (98-107); Estimated Creatinine Clearance 73 ml/min; Glucose 122 mg/dl (70-99); Potassium 4.6 mmol/L (3.5-5.1); Sodium 141 mmol/L (135-145); eGFR > 60.00
[2024-05-27 07:49] LABS: Glucose - Point of Care 147 mg/dl (70-99)
[2024-05-27 07:50] LABS: Vancomycin Trough 14.9 ug/ml (5-20)
[2024-05-27 08:00] VITALS: BP 149/67
[2024-05-27] MEDS: COLACE 100 MG PO (08:50)
[2024-05-27] MEDS: HEPARIN 5000 UNITS SC (08:51)
[2024-05-27] MEDS: FLOMAX 0.4 MG PO (08:51)
[2024-05-27] MEDS: PROSCAR 5 MG PO (08:51)
[2024-05-27] MEDS: LOW STRENGTH ASPIRIN 81 MG PO (08:51)
[2024-05-27] MEDS: FIBERCON 625 MG PO (08:51)
--- NOTE | 2024-05-27 10:36 | W.PN.HOSP.TC ---
Today's Communication/Plan
-
dc
Assessment / Plan
Assessment / Plan
69yo M with PMHX of DM, GERD, IPMN scheduled for Whipple procedure in [facility] on 05/28/24, diabetic retinopathy, HLD came with worsening redness in the inner R thigh for 3 days before admisison, managaged for phlebitis without abscess and improved on
Vanco. ID recommeded Augmentin/Doxy for 2 weeeks upon d/c. Patient also has R diabetic foot infection with newly founf osteomyelitis, followed by and planned for possible bone biopsy in [facility] during his Whipple procedure.
A/P:
#R inner thigh cellulitis with phlebitis
ID followed
US showed no abscess
No DVT on US
cont Abx
#R great toe acute osteomyelitis
planned for bone biopsy and mgmt during admission to [facility] - patient will request podiatry consult
He verbalized understanding that current treatment provided will be for his thigh infection, not toe OM, agreeable with plan for biopsy and IV Abx afterwards as per [facility] mgmt
#IPMN
for Whipple on 05/28/24 in [facility]
#DM type 2 with retinopathy
AccuCheck, Insulin SS, DM diet
#HLD
#Essential HTN
#GERD
#BPH
cont home meds
DVT ppx hep
Full code
I have spent at least 36min reviewing chart, test results, communication with consulotants and providing direct patient care
Anticipated Discharge: Today
Subjective/Interval History
-
Date of Service: May 27, 2024
Objective Data
-
Labs:
Laboratory Results
05/27/24
05:53
WBC 6.1
Hgb 13.8
Hct 39.9
Plt Count 215
Sodium 141
Potassium 4.6
Chloride 106
Carbon Dioxide 24
BUN 18
Creatinine 1.1
Glucose 122 H
Calcium 8.7
Vital Signs:
Vital Signs
Temp Pulse Resp BP Pulse Ox
97.8 F 72 18 149/67 95
05/27/24 08:00 05/27/24 08:00 05/27/24 08:00 05/27/24 08:00 05/27/24 08:00
I&O
05/26/24 05/27/24 05/28/24
06:59 06:59 06:59
Intake Total 3270 / 3270 1200 / 1200
Balance 3270 / 3270 1200 / 1200
Review of Systems
-
History Source: Patient
All other systems: Reviewed and negative
Physical Exam
-
General: No Apparent Distress
Respiratory: Clear to Auscultation
GI: Soft, Nontender and Nondistended
Neuro: Awake, Alert, Oriented and AO x 3
Psych: Calm
--- NOTE | 2024-05-27 10:43 | W.DCSUMMARY ---
Discharge Summary
Discharge Data
Date of Admission: 05/24/24
Date of Discharge: 05/27/24
-
Pending Results: No
Hospital Course
69yo M with PMHX of DM, GERD, IPMN scheduled for Whipple procedure in [facility] on 05/28/24, diabetic retinopathy, HLD came with worsening redness in the inner R thigh for 3 days before admisison, managaged for phlebitis without abscess and improved on
Vanco. ID recommended Augmentin/Doxy for 2 weeks upon d/c. Patient also has R diabetic foot infection with newly founf osteomyelitis, followed by and planned for possible bone biopsy in [facility] during his Whipple procedure.
I have spent at least 36min reviewing chart, test results, communication with consultants and providing direct patient care
Patient was managed for:
#R inner thigh cellulitis with phlebitis
#R great toe acute osteomyelitis
#IPMN
#DM type 2 with retinopathy
#HLD
#Essential HTN
#GERD
#BPH
Discharge Plan
-
Patient Disposition: Home (Routine Discharge)
Discharge Diagnosis/Procedures: Right thigh cellulitis, right first toe osteomyelitis, precancerous cyst
Condition: Good
Diet: Low Fat and Low Cholesterol
Activity: As tolerated
Driving Restrictions: As prior to admission
Activity Restrictions/Additional Instructions:
Keep the appointment for your Whipple surgery on 05/28/2024.
Referrals:
Piter Duffy MD [Family Provider] - in less than 1 week (follow up for minimally elevated ALT)
Prescriptions:
New
amoxicillin-pot clavulanate 875-125 mg tablet
1 tab PO Q12H Qty: 28 0RF
doxycycline hyclate 100 mg capsule
100 mg PO BID Qty: 28 0RF
Continued
multivitamin 1 EACH tablet
1 ea PO DAILY
aspirin 81 MG tablet,chewable
81 mg PO DAILY
Eylea 2 MG/0.05 ML syringe
2 mg intravitreal Q8W
Jardiance 25 MG tablet
25 mg PO DAILY
rosuvastatin 10 MG tablet
20 mg PO QPM
losartan 50 mg Tablet
50 mg PO QPM
tamsulosin [Flomax] 0.4 mg Capsule
0.4 mg PO DAILY
calcium polycarbophil [FiberCon] 625 mg Tablet
625 mg PO DAILY
docusate sodium [Colace] 100 mg Capsule
100 mg PO DAILY
finasteride 5 mg Tablet
5 mg PO DAILY
vitamins A,C,O-[id number] 4,296 mcg-226 mg-90 mg Capsule
1 cap PO DAILY
Patient Own Insulin Pump
0 unit SC .VIA HUMALOG
esomeprazole magnesium [Nexium] 20 mg Capsule,Delayed Release(Dr/Ec)
20 mg PO DAILY PRN (Reason: acid reflux)
Discharge Orders:
Discharge Patient (As Directed); Ordered 05/27/24
Ordered By: Aubrey Joseph
Discharge Date and Time
Print Language: BRUNEIAN
--- NOTE | 2024-05-27 11:06 | CM ---
Chart reviewed and patient is cleared for discharge today.
Plan; Home no needs.
== END 2024-05-27 11:40 | disposition home or self-care (01) | DRG 300 ==
LOC: 4 WEST ACU 22:08
PROVIDERS: Emergency Medicine; Family Medicine; ADMITTING PHYSICIAN Internal Medicine; ATTENDING PHYSICIAN Internal Medicine; CONSULT PHYSICIAN Student in an Organized Health Care Education/Training Program; EMERGENCY PHYSICIAN Student in an Organized Health Care Education/Training Program; FAMILY PHYSICIAN Family Medicine
DX: I80.01 Phlebitis and thrombophlebitis of superficial vessels of right lower extremity (principal); K86.2 Cyst of pancreas; L03.115 Cellulitis of right lower limb; M86.171 Other acute osteomyelitis, right ankle and foot; E11.69 Type 2 diabetes mellitus with other specified complication; I12.9 Hypertensive chronic kidney disease with stage 1 through stage 4 chronic kidney disease, or unspecified chronic kidney disease; N18.2 Chronic kidney disease, stage 2 (mild); E11.51 Type 2 diabetes mellitus with diabetic peripheral angiopathy without gangrene; E78.00 Pure hypercholesterolemia, unspecified; K21.9 Gastro-esophageal reflux disease without esophagitis; N40.0 Benign prostatic hyperplasia without lower urinary tract symptoms; E66.09 Other obesity due to excess calories; E11.319 Type 2 diabetes mellitus with unspecified diabetic retinopathy without macular edema; E11.22 Type 2 diabetes mellitus with diabetic chronic kidney disease; Z95.820 Peripheral vascular angioplasty status with implants and grafts; Z68.32 Body mass index [BMI] 32.0-32.9, adult; Z79.84 Long term (current) use of oral hypoglycemic drugs; Z79.82 Long term (current) use of aspirin; Z79.899 Other long term (current) drug therapy; Z79.4 Long term (current) use of insulin; Z96.41 Presence of insulin pump (external) (internal); Z85.820 Personal history of malignant melanoma of skin; Z85.72 Personal history of non-Hodgkin lymphomas
CPT/HCPCS: 76882; 78803; 80048; 80053; 80202; 82962; 85025; 85027; 85610; 87040; 93971; 96365; 96366; 96367; 99285; A9569

== ENCOUNTER 2024-06-17 02:32 | Emergency (ER) | payer MEDICARE, OTHER, SELFPAY ==
[2024-06-17] VITALS (10 sets, daily range): BP systolic 95–119; BP diastolic 49–70; BMI 31.7
--- NOTE | 2024-06-17 02:44 | ED.GENMED ---
History of Present Illness
General
Chief Complaint: Chest Pain
Source: patient
Exam Limitations: none
Time Seen by Provider: 06/17/24 02:43
Nursing documentation reviewed up to this point in time: agreed with
History of Present Illness
History of Present Illness:
69-year-old male with past medical history of melanoma, non-Hodgkin's lymphoma, prepancreatic cancer, diabetes, presents emergency department today with concerns of chest pain and right subscapular pain for the past 5 hours. Patient reports that he
was sitting at home in his living room when he started to develop and noticed pain in his right scapula and in his chest. Patient states that he felt very short of breath at the time. He called his primary care provider who advised that he call
[phone] who is particularly concerned about a pulmonary embolism in this patient. Patient states that when EMS arrived, he was given 2 doses of nitroglycerin which did seem to improve his symptoms. Patient also notes that he is currently being treated
with antibiotics for superficial phlebitis in the right leg and has noticed increasing swelling. Of note, patient was working at the pool in his house yesterday and was doing a lot of cleaning and physical labor. He denies any personal history of
cardiac disease however he does follow-up with road [facility] from [place] for yearly monitoring. He denies any fevers or chills, cough, upper respiratory symptoms.
Past History
Past History
ED Past Medical History: GERD, HTN, Hypercholesterolemia and NIDDM
Social History
Tobacco: Non-smoker
Personal:
Living: with family
Employment: Employed
Review of Systems
Review of Systems
All Other Systems: ROS reviewed and negative except as documented in HPI and ROS
Phy Exam
Physical Exam
Physical Exam:
General: Patient is well appearing and in no acute distress; non-toxic
Skin: Warm and dry, no rashes or lesions
Head: Normocephalic, atraumatic
Eyes: Sclera non-icteric. EOMs intact.
Cardiac: Regular rate and rhythm, no murmurs
Peripheral Vascular: Varicosities noted in bilateral lower extremities. Right lower extremity swelling noted. 2+ dorsalis pedis pulses bilaterally.
Pulm: Normal respiratory effort, no wheezes, rales, rhonchi
Abdomen: No abdominal tenderness to palpation
Musculoskeletal: No tenderness to palpation of the external chest wall, no scapular tenderness, no pain with passive range of motion of the shoulder
Neuro: CN II-XII intact, no focal neurologic deficits.
Psychiatric: Appropriate mood and affect.
Scores
Heart Score for Chest Pain Patients
STEMI patient?: No
History: Slightly or Non-Suspicious
ECG: Normal
Age: >/= 65 years
Risk Factors: >/= 3 Risk Factors or History of CAD
Troponin: </= Normal Limit
Heart Score for Chest Pain Patients: 4
Heart Score Risk: 20.3% MACE over next 6 weeks
Course
Orders/Labs/Results
Orders:
Orders
06/17/24 02:33
Electrocardiogram (*1) Urgent
Reason for Study: Chest Pain
Cardiac Monitoring- Treatment ONCE
EKG- Treatment ONCE
IV Insert/Care/Rem.- Treatment PRN
O2 Therapy [RESP] Urgent
Titrate/Wean O2 to maintain O2 sat greater than (%): 90
Special Instructions: Maintain sats >/=90%
Pulse Ox/spot Check [RESP] Urgent
Quantity: 1
Special Instructions: ON ROOM AIR
06/17/24 02:38
Complete Blood Count/With Diff Urgent
Comprehensive Metabolic Panel Urgent
PTT Urgent
Troponin I Urgent
06/17/24 02:[address] [CT Chest PE Study] Urgent
Comment:
Reason For Exam: shortness of breath, right scapular pain
06/17/24 04:00
0.9% Sodium Chloride 500 ml [Nss] 500 ml IV BOLUS
06/17/24 04:48
Acetaminophen [Tylenol] 1,000 mg PO NOW STA
Ibuprofen [Motrin] 400 mg PO NOW STA
06/17/24 05:33
Electrocardiogram (*1) Urgent
Reason for Study: Chest Pain
06/17/24 05:37
Troponin I Urgent
Abnormal Lab Results
06/17/24
02:38
RBC 4.29 L 10^6/uL
(4.70-6.10)
MCV 95.3 H fL
(80.0-94.0)
MCH 33.6 H pg
(27.0-31.0)
MPV 10.6 H fL
(7.4-10.4)
Absolute Neuts (auto) 8.2 H 10^3/uL
(1.4-6.5)
Absolute Lymphs (auto) 1.1 L 10^3/uL
(1.2-3.4)
Absolute Monos (auto) 1.0 H 10^3/uL
(0.1-0.6)
Neutrophils % 78.5 H %
(42.2-75.2)
Lymphocytes % 10.5 L %
(20.5-51.1)
BUN 36 H mg/dl
(9-20)
Glucose 200 H mg/dl
(70-99)
Total Protein 6.1 L g/dl
(6.3-8.2)
06/17/24 02:38
06/17/24 02:38
Vital Signs
Initial and Last Documented VS:
Initial Vital Signs
Temp Pulse Resp BP Pulse Ox
98.6 F 78 18 98/54 95
06/17/24 02:35 06/17/24 02:35 06/17/24 02:35 06/17/24 02:35 06/17/24 02:35
Last Documented Vital Signs
Temp Pulse Resp BP Pulse Ox
98.6 F 78 21 110/56 96
06/17/24 02:35 06/17/24 04:00 06/17/24 04:00 06/17/24 04:00 06/17/24 04:00
MDM/Problems Addressed
Differential Diagnosis Includes:
Musculoskeletal sprain/strain, PE, ACS, costochondritis, GERD
MDM/Problems Addressed:
69-year-old male with past medical history of cancer, insulin-dependent diabetes, presents emergency department today with concerns of shortness of breath, chest pain and right posterior scapular pain. On physical exam he is well-appearing in no
acute distress. Differential diagnosis as above. CT PE study negative for PE, pneumothorax, pericardial effusion. Troponin undetectable x 2, EKG sinus rhythm with first-degree AV block x 2, no new concerning ischemic changes. Pain returned but
did improve with Tylenol and Motrin. On reassessment, patient feels well and is ready to go home. Reviewed findings with patient. Patient stable for discharge. Suspect musculoskeletal etiology as patient did do a lot of work on his pool
yesterday. Advise follow-up with road [employer] [facility]. Patient stable for discharge.
Chronic conditions affecting care:
Hypertension, hyperlipidemia, GERD, insulin-dependent diabetes, precancerous pancreatic growth, non-Hodgkin's lymphoma, malignant melanoma
*Pulse Oximetry
Patient hypoxic: no
*Critical Care Note
Total Time (30-74mins, 75-104mins- exclusive of procedures): Not Applicable
Update Note
Update Note:
Elevated BUN/creatinine ratio, patient slightly hypotensive, will initiate IV fluids
Update 4:50 AM, patient notes a return in his pain, radiating a 7 out of 10, he reports that he is on able to tell of it is coming from the chest or back, PE study normal no evidence of PE pleural effusion or pneumothorax, will give Tylenol Motrin
and assess response, will repeat troponin
ED Attending Note
-
Portions of this chart may have been created with voice recognition software.� Occasional wrong word or��sound alike� substitutions may have occurred due to the inherent limitations of voice recognition software.
Discharge Plan
Departure
Patient Disposition: Home (Routine Discharge)
Date of Disposition: 06/17/24
Time of Disposition: 06:37
Patient with high blood pressure during this ER visit?: No
Condition: Good
Discharge Problem:
Chest pain
Instructions: Chest pain - Discharge instructions
Prescriptions:
No Action
multivitamin 1 EACH tablet
1 ea PO DAILY
aspirin 81 MG tablet,chewable
81 mg PO DAILY
Eylea 2 MG/0.05 ML syringe
2 mg intravitreal Q8W
Jardiance 25 MG tablet
25 mg PO DAILY
rosuvastatin 10 MG tablet
20 mg PO QPM
losartan 50 mg Tablet
50 mg PO QPM
tamsulosin [Flomax] 0.4 mg Capsule
0.4 mg PO DAILY
calcium polycarbophil [FiberCon] 625 mg Tablet
625 mg PO DAILY
docusate sodium [Colace] 100 mg Capsule
100 mg PO DAILY
finasteride 5 mg Tablet
5 mg PO DAILY
vitamins A,C,Q-ofnj-erfych 4,296 mcg-226 mg-90 mg Capsule
1 cap PO DAILY
Patient Own Insulin Pump
0 unit SC .VIA HUMALOG
esomeprazole magnesium [Nexium] 20 mg Capsule,Delayed Release(Dr/Ec)
20 mg PO DAILY PRN (Reason: acid reflux)
amoxicillin-pot clavulanate 875-125 mg tablet
1 tab PO Q12H Qty: 28 0RF
doxycycline hyclate 100 mg capsule
100 mg PO BID Qty: 28 0RF
Referrals:
Piter Duffy MD [Family Provider] -
Activity Restrictions/Additional Instructions:
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
PLEASE RETURN EMERGENCY DEPARTMENT SHOULD YOU DEVELOP ACUTE WORSENING OF YOUR SYMPTOMS, LIGHTHEADEDNESS, DIZZINESS, FAINTING SPELLS, FEVERS OR CHILLS, SHORTNESS OF BREATH, OR ANY OTHER SIGNS OR SYMPTOMS CONCERNING TO YOU.
Interventions
Interventions:
*Risk Screen - Suicide Last Done: 06/17/24 02:35
*General Assessment Last Done: 06/17/24 02:35
*Neglect/Abuse Screening Last Done: 06/17/24 02:35
*ED- Fall Risk Assessment Last Done: 06/17/24 02:35
*ED COVID-19 Vaccine History Last Done: 06/17/24 02:35
ED- Cardiac Assessment Last Done: 06/17/24 02:50
Discharge Date and Time
Print Language: MALIAN
[2024-06-17 03:17] LABS: % Basophils 0.5 % (0-2); % Immature Granulocytes 0.3 % (0-0.5); % Lymphocytes 10.5 % (20.5-51.1); % Monocytes 9.2 % (1.7-9.3); % Neutrophils 78.5 % (42.2-75.2); Absolute Basophils 0.1 10^3/uL (0-0.2); Absolute Eosinophils 0.1 10^3/uL (0-0.7); Absolute Lymphocytes 1.1 10^3/uL (1.2-3.4); Absolute Neutrophils 8.2 10^3/uL (1.4-6.5); Hematocrit 40.9 % (39.0-52.0); Hemoglobin 14.4 g/dL (13.0-18.0); Mean Corp Hgb Conc. 35.2 g/dL (33.0-37.0); Mean Corpuscular Hgb 33.6 pg (27.0-31.0); Mean Corpuscular Volume 95.3 fL (80.0-94.0); Mean Platelet Volume 10.6 fL (7.4-10.4); Nucleated Red Blood Cells % 0 % (-); Platelet Count 207 10^3/uL (130-400); Red Blood Cell Count 4.29 10^6/uL (4.70-6.10); Red Cell Dist. Width 12.3 % (11.5-14.5); White Blood Cell Count 10.4 10^3/uL (4.8-10.8)
[2024-06-17 03:30] LABS: ALT (SGPT) 42 U/L (0-50); AST (SGOT) 28 U/L (17-59); Albumin 3.6 g/dl (3.5-5.0); Alkaline Phosphatase 73 U/L (38-126); Blood Urea Nitrogen 36 mg/dl (9-20); Calcium 8.5 mg/dl (8.4-10.2); Carbon Dioxide 24 mmol/L (22-30); Chloride 106 mmol/L (98-107); Estimated Creatinine Clearance 74 ml/min; Glucose 200 mg/dl (70-99); Potassium 4.7 mmol/L (3.5-5.1); Sodium 138 mmol/L (135-145); Total Bilirubin 0.6 mg/dl (0.2-1.3); Total Protein 6.1 g/dl (6.3-8.2); eGFR > 60.00
[2024-06-17 03:31] LABS: APTT 31.2 Sec (23.4-35.0)
[2024-06-17 03:41] LABS: Troponin I < 0.012 ng/ml
[2024-06-17] MEDS: NSS 500 IV (04:05)
--- NOTE | 2024-06-17 04:11 | EDRN ---
Updated patient on labs, patient reports pain is coming back, informed [place], [place]
[2024-06-17] MEDS: MOTRIN 400 MG PO (04:56)
[2024-06-17] MEDS: TYLENOL 1000 MG PO (04:56)
[2024-06-17 06:33] LABS: Troponin I < 0.012 ng/ml
== END 2024-06-17 06:53 | disposition home or self-care (01) ==
LOC: EMR 02:32
PROVIDERS: Physician Assistant; EMERGENCY PHYSICIAN Emergency Medicine; FAMILY PHYSICIAN Family Medicine
DX: R07.9 Chest pain, unspecified (principal); E78.00 Pure hypercholesterolemia, unspecified; I10 Essential (primary) hypertension; E11.9 Type 2 diabetes mellitus without complications; Z85.72 Personal history of non-Hodgkin lymphomas; Z85.820 Personal history of malignant melanoma of skin; Z79.4 Long term (current) use of insulin
CPT/HCPCS: 99284; 96360; 71275; 80053; 84484; 85025; 85730; 93005; Q9967

== ENCOUNTER 2024-06-21 00:34 | Emergency (ER) | payer MEDICARE, OTHER, SELFPAY ==
[2024-06-21] VITALS (9 sets, daily range): BP systolic 94–118; BP diastolic 57–82; BMI 32.3
--- NOTE | 2024-06-21 00:58 | ED.GENMED ---
History of Present Illness
<Frantz Vazquez DO - Last Filed: 06/21/24 02:00>
General
Chief Complaint: Chest Pain
Source: patient, records and previous radiology exam
Exam Limitations: none
Time Seen by Provider: 06/21/24 00:40
Nursing documentation reviewed up to this point in time: agreed with
History of Present Illness
History of Present Illness:
69-year-old male complex past medical history including--- non-Hodgkin's lymphoma followed at [facility], insulin requiring diabetes, lesion on his pancreas--scheduled to have a Whipple procedure was held off because he was diagnosed
with phlebitis of his right lower extremity, being treated with antibiotics, is also scheduled have a bone biopsy of his right lower extremity for osteomyelitis, again held off because been on antibiotics, returns to the ER with sharp pain across
his chest and back, seen here few nights ago had 2 undetectable troponins, CT of his chest, discharged to home continues to have pain worse at night sharp across his chest, took Percocet feeling better, last night he had pain in his abdomen, he is
an ex-smoker he is a social drinker
Past History
<Frantz Vazquez DO - Last Filed: 06/21/24 02:00>
Past History
ED Past Medical History: GERD, HTN, Hypercholesterolemia and NIDDM
ED Past Surgical History: Orthopedic; Negative Cardiac
Social History
Tobacco: Former smoker
Alcohol: Occasional
Drug: None
Personal:
Living: with family
Employment: Employed
Review of Systems
<Frantz Vazquez DO - Last Filed: 06/21/24 02:00>
Review of Systems
All Other Systems: Not applicable
Constitutional: Denies fever or fatigue
Respiratory: Reports trouble breathing
Cardiac: Reports chest pain; Denies diaphoresis or palpitations
ABD/GI: Reports no symptoms
: Reports no symptoms
Musculoskeletal: Reports no symptoms
Skin: Reports no symptoms
Neurological: Reports no symptoms
Endocrine: Reports no symptoms
Phy Exam
<Frantz Vazquez, DO - Last Filed: 06/21/24 02:00>
Physical Exam
Physical Exam:
Physical Exam
General: no apparent distress, not acutely ill
Neck: No jaundice
Heart: s1/s2 regular rate and rhythm, no murmur. equal radial pulses.
Lungs: No rales
Abdomen: Nontender
Neuro: alert and oriented. no focal neurological deficits
Skin: no rash
Psychiatric: well kept. interactive and cooperative
Extremities: Superficial phlebitis small amount on the right lower medial thigh no fluctuance minimal warmth
Scores
<Kieran Kerns, DO - Last Filed: 06/23/24 23:44>
Heart Score for Chest Pain Patients
STEMI patient?: Not applicable
Course
<Frantz Vazquez, DO - Last Filed: 06/21/24 02:00>
Orders/Labs/Results
Orders:
Orders
06/21/24 00:35
Electrocardiogram (*1) Urgent
Reason for Study: Chest Pain
Cardiac Monitoring- Treatment ONCE
EKG- Treatment ONCE
IV Insert/Care/Rem.- Treatment PRN
O2 Therapy [RESP] Urgent
Titrate/Wean O2 to maintain O2 sat greater than (%): 90
Special Instructions: Maintain sats >/=90%
Pulse Ox/spot Check [RESP] Urgent
Quantity: 1
Special Instructions: ON ROOM AIR
06/21/24 00:45
Complete Blood Count/With Diff Urgent
Comprehensive Metabolic Panel Urgent
Lipase Urgent
Comment: ADDED
Troponin I Urgent
06/21/24 00:51
Add On- LAB Urgent
Tests Added?: lipase
06/21/24 01:54
Troponin I Urgent
Abnormal Lab Results
06/21/24
00:45
WBC 11.5 H 10^3/uL
(4.8-10.8)
RBC 4.37 L 10^6/uL
(4.70-6.10)
MCV 96.1 H fL
(80.0-94.0)
MCH 32.7 H pg
(27.0-31.0)
Abs Immat Gran (auto) 0.1 H 10^3/uL
(0-0.05)
Absolute Neuts (auto) 9.2 H 10^3/uL
(1.4-6.5)
Absolute Lymphs (auto) 0.9 L 10^3/uL
(1.2-3.4)
Absolute Monos (auto) 1.2 H 10^3/uL
(0.1-0.6)
Immature Gran % 0.7 H %
(0-0.5)
Neutrophils % 80.1 H %
(42.2-75.2)
Lymphocytes % 8.2 L %
(20.5-51.1)
Monocytes % 10.3 H %
(1.7-9.3)
BUN 21 H mg/dl
(9-20)
Glucose 194 H mg/dl
(70-99)
Total Protein 6.2 L g/dl
(6.3-8.2)
06/21/24 00:45
06/21/24 00:45
Vital Signs
Initial and Last Documented VS:
Initial Vital Signs
Temp Pulse Resp BP Pulse Ox
98.4 F 79 18 114/72 97
06/21/24 00:37 06/21/24 00:37 06/21/24 00:37 06/21/24 00:37 06/21/24 00:37
Last Documented Vital Signs
Temp Pulse Resp BP Pulse Ox
98.4 F 74 19 98/57 98
06/21/24 00:37 06/21/24 04:00 06/21/24 04:00 06/21/24 04:00 06/21/24 04:00
<Kieran Kerns, - Last Filed: 06/23/24 23:44>
Orders/Labs/Results
Orders:
Orders
06/21/24 00:35
Electrocardiogram (*1) Urgent
Reason for Study: Chest Pain
Cardiac Monitoring- Treatment ONCE
EKG- Treatment ONCE
IV Insert/Care/Rem.- Treatment PRN
O2 Therapy [RESP] Urgent
Titrate/Wean O2 to maintain O2 sat greater than (%): 90
Special Instructions: Maintain sats >/=90%
Pulse Ox/spot Check [RESP] Urgent
Quantity: 1
Special Instructions: ON ROOM AIR
06/21/24 00:45
Complete Blood Count/With Diff Urgent
Comprehensive Metabolic Panel Urgent
Lipase Urgent
Comment: ADDED
Troponin I Urgent
06/21/24 00:51
Add On- LAB Urgent
Tests Added?: lipase
06/21/24 01:54
Troponin I Urgent
Abnormal Lab Results
06/21/24
00:45
WBC 11.5 H 10^3/uL
(4.8-10.8)
RBC 4.37 L 10^6/uL
(4.70-6.10)
MCV 96.1 H fL
(80.0-94.0)
MCH 32.7 H pg
(27.0-31.0)
Abs Immat Gran (auto) 0.1 H 10^3/uL
(0-0.05)
Absolute Neuts (auto) 9.2 H 10^3/uL
(1.4-6.5)
Absolute Lymphs (auto) 0.9 L 10^3/uL
(1.2-3.4)
Absolute Monos (auto) 1.2 H 10^3/uL
(0.1-0.6)
Immature Gran % 0.7 H %
(0-0.5)
Neutrophils % 80.1 H %
(42.2-75.2)
Lymphocytes % 8.2 L %
(20.5-51.1)
Monocytes % 10.3 H %
(1.7-9.3)
BUN 21 H mg/dl
(9-20)
Glucose 194 H mg/dl
(70-99)
Total Protein 6.2 L g/dl
(6.3-8.2)
06/21/24 00:45
06/21/24 00:45
Vital Signs
Initial and Last Documented VS:
Initial Vital Signs
Temp Pulse Resp BP Pulse Ox
98.4 F 79 18 114/72 97
06/21/24 00:37 06/21/24 00:37 06/21/24 00:37 06/21/24 00:37 06/21/24 00:37
Last Documented Vital Signs
Temp Pulse Resp BP Pulse Ox
98.4 F 74 19 98/57 98
06/21/24 00:37 06/21/24 04:00 06/21/24 04:00 06/21/24 04:00 06/21/24 04:00
<Frantz Vazquez, DO - Last Filed: 06/21/24 02:00>
MDM/Problems Addressed
Differential Diagnosis Includes:
Bronchitis pleurisy ACS doubt PE or dissection based on history physical recent imaging
MDM/Problems Addressed:
Shortness of breath chest
Chronic conditions affecting care: DM, HTN and Cancer
Acute Exacerbation and/or Progression of Chronic Illness: DM, HTN and Cancer
<Frantz Vazquez, DO - Last Filed: 06/21/24 02:00>
*Pulse Oximetry
Patient hypoxic: no
*EKG
Interpreted by ED Provider?: Yes
Interpretation: abnormal
Comparison EKG: no changes
Heart Rate: 70
Rate: normal
Rhythm: sinus
Ischemia: ST elevation (Similar to prior trace)
*Ctc Operator Interpretation
Rate: normal
Interpretation: normal
Heart Rate: 78
Rhythm: sinus
*Critical Care Note
Total Time (30-74mins, 75-104mins- exclusive of procedures): Not Applicable
Data Reviewed
Review of Other/Old Records Reveals: Labs, Records and Radiology Studies
Source: patient and previous radiology exam
Further Testing Considered But Not Given:
CT of the chest
<Frantz Vazquez, DO - Last Filed: 06/21/24 02:00>
Update Note
Update Note:
Update etiology not entirely clear symptoms are somewhat pleuritic although he had a negative chest CT recently has an abnormal EKG although similar to prior with 2 undetectable troponins we will repeat his troponins, check lipase
2 AM, undetectable troponin lipase within normal limits, will repeat his troponin, does have an appointment a few hours with his oncologist at [facility] to discuss his lymphoma treatment
<Kieran Kerns, DO - Last Filed: 06/23/24 23:44>
Update Note
Update Note:
Update etiology not entirely clear symptoms are somewhat pleuritic although he had a negative chest CT recently has an abnormal EKG although similar to prior with 2 undetectable troponins we will repeat his troponins, check lipase
2 AM, undetectable troponin lipase within normal limits, will repeat his troponin, does have an appointment a few hours with his oncologist at [facility] to discuss his lymphoma treatment
3:50 AM: To discuss patient's lab work. We discussed the troponins. I reviewed CT scan from 06/17/2024 with patient. Patient did not wish to repeat the CAT scan this evening. Patient still had intermittent pain. At this point I offered him
admission to the hospital. He refused stating that he has an oncology appointment this morning and does not want to miss it. I did discuss return to ER instructions at length with the patient. He is looking to possibly switch cardiology groups.
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 I will put him in the chest pain follow-up hotline so that he can be evaluated by cardiology. Again patient does not wish to be admitted due to her prior commitment. Patient being discharged home in stable
condition. Amendment physical exam patient awake, alert, and oriented in absolutely no acute distress. Heart is regular rate and rhythm. There are no murmurs rubs or gallops appreciated by auscultation. Abdomen is soft without tenderness to
palpation. Slightly obese. Normal bowel sounds present. Moves all 4 extremities. Skin is warm and dry.
Patient being discharged in improved condition.
ED Attending Note
<Frantz Vazquez, DO - Last Filed: 06/21/24 02:00>
-
Portions of this chart may have been created with voice recognition software.� Occasional wrong word or��sound alike� substitutions may have occurred due to the inherent limitations of voice recognition software.
Discharge Plan
Departure
Patient Disposition: Home (Routine Discharge)
Date of Disposition: 06/21/24
Time of Disposition: 01:59
Patient with high blood pressure during this ER visit?: No
Condition: Good
Discharge Problem:
Chest pain
Instructions: Chest Pain CBC Follow Up
Prescriptions:
No Action
multivitamin 1 EACH tablet
1 ea PO DAILY
aspirin 81 MG tablet,chewable
81 mg PO DAILY
Eylea 2 MG/0.05 ML syringe
2 mg intravitreal Q8W
Jardiance 25 MG tablet
25 mg PO DAILY
rosuvastatin 10 MG tablet
20 mg PO QPM
losartan 50 mg Tablet
50 mg PO QPM
tamsulosin [Flomax] 0.4 mg Capsule
0.4 mg PO DAILY
calcium polycarbophil [FiberCon] 625 mg Tablet
625 mg PO DAILY
docusate sodium [Colace] 100 mg Capsule
100 mg PO DAILY
finasteride 5 mg Tablet
5 mg PO DAILY
vitamins A,C,M-kptv-geqajh 4,296 mcg-226 mg-90 mg Capsule
1 cap PO DAILY
Patient Own Insulin Pump
0 unit SC .VIA HUMALOG
esomeprazole magnesium [Nexium] 20 mg Capsule,Delayed Release(Dr/Ec)
20 mg PO DAILY PRN (Reason: acid reflux)
amoxicillin-pot clavulanate 875-125 mg tablet
1 tab PO Q12H Qty: 28 0RF
doxycycline hyclate 100 mg capsule
100 mg PO BID Qty: 28 0RF
Referrals:
Piter Duffy MD [Family Provider] - Next open appointment
Activity Restrictions/Additional Instructions:
Follow-up with Dr. Duffy, also go to see your oncologist tomorrow as scheduled
Interventions
Interventions:
*Risk Screen - Suicide Last Done: 06/21/24 00:37
*General Assessment Last Done: 06/21/24 00:37
*Neglect/Abuse Screening Last Done: 06/21/24 00:37
*ED- Fall Risk Assessment Last Done: 06/21/24 00:37
*ED COVID-19 Vaccine History Last Done: 06/21/24 00:37
*Nursing Disposition Last Done: 06/21/24 04:24
ED- Cardiac Assessment Last Done: 06/21/24 00:53
Discharge Date and Time
Discharge Date/Time: 06/21/24 04:25
Print Language: HUNGARIAN
[2024-06-21 01:04] LABS: ALT (SGPT) 42 U/L (0-50); AST (SGOT) 28 U/L (17-59); Albumin 3.7 g/dl (3.5-5.0); Alkaline Phosphatase 101 U/L (38-126); Blood Urea Nitrogen 21 mg/dl (9-20); Calcium 8.9 mg/dl (8.4-10.2); Carbon Dioxide 24 mmol/L (22-30); Chloride 105 mmol/L (98-107); Estimated Creatinine Clearance 75 ml/min; Glucose 194 mg/dl (70-99); Potassium 4.6 mmol/L (3.5-5.1); Sodium 141 mmol/L (135-145); Total Bilirubin 0.7 mg/dl (0.2-1.3); Total Protein 6.2 g/dl (6.3-8.2); eGFR > 60.00
[2024-06-21 01:05] LABS: % Basophils 0.4 % (0-2); % Eosinophils 0.3 % (0-6); % Immature Granulocytes 0.7 % (0-0.5); % Lymphocytes 8.2 % (20.5-51.1); % Monocytes 10.3 % (1.7-9.3); % Neutrophils 80.1 % (42.2-75.2); Absolute Basophils 0.1 10^3/uL (0-0.2); Absolute Immature Granulocytes 0.1 10^3/uL (0-0.05); Absolute Lymphocytes 0.9 10^3/uL (1.2-3.4); Absolute Monocytes 1.2 10^3/uL (0.1-0.6); Absolute Neutrophils 9.2 10^3/uL (1.4-6.5); Hemoglobin 14.3 g/dL (13.0-18.0); Mean Corpuscular Hgb 32.7 pg (27.0-31.0); Mean Corpuscular Volume 96.1 fL (80.0-94.0); Mean Platelet Volume 10.1 fL (7.4-10.4); Nucleated Red Blood Cells % 0 % (-); Platelet Count 238 10^3/uL (130-400); Red Blood Cell Count 4.37 10^6/uL (4.70-6.10); Red Cell Dist. Width 12.6 % (11.5-14.5); White Blood Cell Count 11.5 10^3/uL (4.8-10.8)
[2024-06-21 01:15] LABS: Lipase 225 U/L (23-300)
[2024-06-21 01:17] LABS: Troponin I < 0.012 ng/ml
[2024-06-21 03:06] LABS: Troponin I < 0.012 ng/ml
== END 2024-06-21 04:25 | disposition home or self-care (01) ==
LOC: EMR 00:34
PROVIDERS: Student in an Organized Health Care Education/Training Program; EMERGENCY PHYSICIAN Emergency Medicine; FAMILY PHYSICIAN Family Medicine
DX: R07.89 Other chest pain (principal); E11.69 Type 2 diabetes mellitus with other specified complication; E78.00 Pure hypercholesterolemia, unspecified; I10 Essential (primary) hypertension; K21.9 Gastro-esophageal reflux disease without esophagitis; Z85.72 Personal history of non-Hodgkin lymphomas; Z87.891 Personal history of nicotine dependence
CPT/HCPCS: 99283; 80053; 83690; 84484; 85025; 93005

== ENCOUNTER → 2024-06-26 12:36 | Outpatient (REF) | payer MEDICARE, OTHER, SELFPAY | LOC: HWRCS 12:36 | PROVIDERS: ATTENDING PHYSICIAN Internal Medicine; FAMILY PHYSICIAN Family Medicine | DX: R07.9 Chest pain, unspecified (principal); I73.9 Peripheral vascular disease, unspecified; I10 Essential (primary) hypertension; R06.09 Other forms of dyspnea | CPT/HCPCS: 78452; 93017; A9500; J2785 ==

== ENCOUNTER → 2024-06-27 12:57 | Outpatient (REF) | payer MEDICARE, OTHER, SELFPAY | LOC: RCS 12:57 | PROVIDERS: ATTENDING PHYSICIAN Internal Medicine; FAMILY PHYSICIAN Family Medicine | DX: R07.9 Chest pain, unspecified (principal); I73.9 Peripheral vascular disease, unspecified; I10 Essential (primary) hypertension; R06.09 Other forms of dyspnea | CPT/HCPCS: 93306 ==

== ENCOUNTER → 2024-07-26 14:16 | Outpatient (REF) | payer MEDICARE, OTHER, SELFPAY | LOC: CLAB 14:16 | PROVIDERS: ATTENDING PHYSICIAN Podiatrist Foot Surgery | DX: M86.171 Other acute osteomyelitis, right ankle and foot (principal); L97.519 Non-pressure chronic ulcer of other part of right foot with unspecified severity | CPT/HCPCS: 87070; 87075; 87176; 87205 ==

== ENCOUNTER 2024-08-11 22:13 | Inpatient (IN) | payer MEDICARE, OTHER, SELFPAY ==
[2024-08-11 19:29] VITALS: BP 147/72
[2024-08-11 20:23] LABS: Hematocrit 37.5 % (39.0-52.0); Hemoglobin 13.0 g/dL (13.0-18.0); Mean Corp Hgb Conc. 34.7 g/dL (33.0-37.0); Mean Corpuscular Volume 93.8 fL (80.0-94.0); Platelet Count 312 10^3/uL (130-400); Red Cell Dist. Width 13.0 % (11.5-14.5)
[2024-08-11 20:40] LABS: Blood Urea Nitrogen 40 mg/dl (9-20); Calcium 8.8 mg/dl (8.4-10.2); Carbon Dioxide 23 mmol/L (22-30); Chloride 105 mmol/L (98-107); Glucose 331 mg/dl (70-99); Potassium 5.2 mmol/L (3.5-5.1); Sodium 135 mmol/L (135-145); eGFR > 60.00
--- NOTE | 2024-08-11 21:21 | ED.GENMED ---
History of Present Illness
General
Chief Complaint: Vascular Symptoms
Source: patient
Exam Limitations: none
Time Seen by Provider: 08/11/24 19:39
Nursing documentation reviewed up to this point in time: agreed with
History of Present Illness
History of Present Illness:
Patient with history of diabetes, with ongoing left big toe ulcer over the past 6 years, currently on antibiotics after recent biopsy revealed osteomyelitis, presents to ED at the recommendation of his manager electrical due to worsening symptoms despite
multiple antibiotics, with plans for IV antibiotics as well as tentative plan for potential toe amputation. Patient denies fever or chills. Denies new trauma. Patient reports continual foul-smelling drainage from open wound on his big toe.
Past History
Past History
ED Past Medical History: GERD, HTN, Hypercholesterolemia and NIDDM
ED Past Surgical History: Orthopedic; Negative Cardiac
Social History
Tobacco: Former smoker
Alcohol: Occasional
Drug: None
Personal:
Living: with family
Employment: Employed
Review of Systems
Review of Systems
Allergies reviewed?: Yes
All Other Systems: ROS reviewed and negative except as documented in HPI and ROS
Constitutional: Reports no symptoms; Denies fever
ABD/GI: Reports no symptoms
Musculoskeletal: Reports no symptoms
Skin: Reports other (Toe ulcer with drainage)
Neurological: Reports no symptoms
Phy Exam
Physical Exam
Physical Exam:
Physical Exam
General: no apparent distress, not acutely ill. afebrile
Head: nc/at. eomi
Neck: supple. no meningeal signs.
Abdomen: normal bowel sounds. not tender.
Neuro: alert and oriented x 3. no focal neurological deficits
Skin: left 1st toe: an approx 1cm open ulcer on volar surface of prox phalanx with foul smelling drainage with minimal surrounding erythema. an abrasion/ecchymosis with blister noted along medial aspect of left
midfoot along the margin
Psychiatric: well kept. interactive and cooperative
Extremities: no edema. no calf tenderness.
Course
Orders/Labs/Results
Orders:
Orders
08/11/24 20:18
Basic Metabolic Panel Urgent
Complete Blood Count/No Diff Urgent
Blood Culture Q30M
MADDY Source: Blood/Venous
Specimen Description:
08/11/24 21:09
Blood Culture Q30M
MADDY Source: Blood/Venous
Specimen Description:
08/11/24 21:22
Piperacillin/Tazo 3.375 Gram [Zosyn] 3.375 gram in 50 ml IV NOW
08/11/24 21:51
Admit/Transfer Patient As Directed
Co-Sign Provider:
Level of Care: Inpatient admission
Assign to:: Medical/Surgical
Physician / Group: ivan
Diagnosis: big toe osteomyelitis
Reason for Hospitalization: big toe osteomyelitis
Expected length of stay greater than two midnights?: Yes
ELOS- Estimated Length of Stay in days: 2
I certify the patient meets the requirements for IP care: Yes
Code Status As Directed
Resuscitation Status: Full Code
PRN Pain Medication Management As Directed
May give lesser potent ordered pain med per pt: Yes
preference::
Protocol:: Medication orders for pain may be administered in a
manner that supports deferring to patient preference
when the pt is:
- Requesting an ordered lesser potent pain medication.
Least to most potent pain medications are defined
as: acetaminophen < NSAID < tramadol < opioids
(morphine, oxycodone, hydromorphone).
- Requesting a lesser dose of the same medication IF
ORDERED.
- Requesting a less intrusive route of administration
if both routes are prescribed by the provider (PO <
IV).
08/11/24 21:53
Foot, Right 2 View [CR Foot - Right 2 Views] Urgent
Comment:
Reason For Exam: osteo right big toe
08/11/24 22:00
Flush (0.9% Sodium Chloride) [Flush (Nss)] See Dose Instructions IV PER PROTOCOL
08/12/24 00:03
Consult Notification Routine
Specialty to Notify: Vascular Surgery
Date consulting provider notified: 08/12/24
Time consulting provider notified: 08:02
Notified:: Provider
Comment: TT'd Physician On-Call(Krunal)
Diabetes Management by Nurse Practitioner Routine
Consulting Provider: Abby Baker
Was provider already notified?: No
Reason for Consult: Insulin Management
Date consulting provider notified: 08/13/24
Time consulting provider notified: 08:07
Notified:: Provider
PODIATRY CONSULT Routine
Consulting Provider: Tito Arciniega
Was physician already notified: Yes
Vascular Surgery Consult Routine
Consulting Provider: Hayder Hector III
Was physician already notified: No
Reason for consult: toe ulcer osteo
Activity As Directed
Activity Level: As Tolerated
Vital Signs As Directed
Frequency: Per unit guidelines
Lower Ext Arterial & IVANIA US [US Periph Art LOWER Ext w IVANIA] Routine
Comment:
Reason For Exam: ulcer righh toe
DX Deep Vein Thrombosis Video Routine
08/12/24 04:00
Piperacillin/Tazo 3.375 Gram [Zosyn] 3.375 gram in 50 ml IV Q6H
08/12/24 07:07
Complete Blood Count/With Diff IN AM
Comprehensive Metabolic Panel IN AM
08/12/24 08:00
Heparin 5,000 units SC Q12
Abnormal Lab Results
08/11/24
20:18
RBC 4.00 L 10^6/uL
(4.70-6.10)
Hct 37.5 L %
(39.0-52.0)
MCH 32.5 H pg
(27.0-31.0)
Potassium 5.2 H mmol/L
(3.5-5.1)
BUN 40 H mg/dl
(9-20)
Glucose 331 H mg/dl
(70-99)
08/11/24 20:18
08/11/24 20:18
Vital Signs
Initial and Last Documented VS:
Initial Vital Signs
Temp Pulse Resp BP Pulse Ox
97.4 F 76 18 147/72 100
08/11/24 19:29 08/11/24 19:29 08/11/24 19:29 08/11/24 19:29 08/11/24 19:29
Last Documented Vital Signs
Temp Pulse Resp BP Pulse Ox
96.5 F L 82 20 115/63 97
08/13/24 07:00 08/13/24 08:19 08/13/24 07:00 08/13/24 08:19 08/13/24 07:00
MDM/Problems Addressed
MDM/Problems Addressed:
History exam consistent with osteomyelitis, failing outpatient antibiotic therapy. After discussion with podiatry, Dr. Arciniega, via [place] text, plan to admit patient for IV antibiotics, with plans for potential vascular evaluation and toe amputation
*Pulse Oximetry
SaO2: 100
Oxygen Mode of Delivery: Room air
Patient hypoxic: no
*Critical Care Note
Total Time (30-74mins, 75-104mins- exclusive of procedures): Not Applicable
ED Attending Note
-
Portions of this chart may have been created with voice recognition software.� Occasional wrong word or��sound alike� substitutions may have occurred due to the inherent limitations of voice recognition software.
Discharge Plan
Departure
Patient Disposition: Admit
Date of Disposition: 08/11/24
Time of Disposition: 21:31
Admit to: Med/Surg
Presentation/result/management discussed w/ accepting MD/DO: Hospitalist
Discharge Problem:
Diabetic foot ulcer, Osteomyelitis
Interventions
Interventions:
*Risk Screen - Suicide Last Done: 08/11/24 19:29
*General Assessment Last Done: 08/11/24 19:40
*Neglect/Abuse Screening Last Done: 08/11/24 19:29
*ED- Fall Risk Assessment Last Done: 08/11/24 19:40
*ED COVID-19 Vaccine History Last Done: 08/11/24 19:40
*Nursing Disposition Last Done: 08/11/24 23:55
ED-Skin Assessment Last Done: 08/11/24 19:40
ED-Peripheral Vascular Assessment Last Done: 08/11/24 19:40
ED- Pulmonary Assessment Last Done: 08/11/24 19:40
ED- Cardiac Assessment Last Done: 08/11/24 19:40
Discharge Date and Time
Discharge Date/Time: 08/11/24 23:55
--- NOTE | 2024-08-11 22:04 | HPS.HSE ---
Family Physician
-
Family Physician: Piter Duffy
Chief Complaint
-
toe infecton
History of Present Illness
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
high court justice due to left big toe ulcer that he has had for 6 years. He recently had biopsy that revealed osteomyelitis. He was told to come in for IV antibiotics and toe amputation by his high court justice Dr. Arciniega. He denies any fevers or chills. No
pain due to neuropathy. Denies trauma. He has foul-smelling drainage from the open wound.
He had an area debrided previously by podiatry with sitches.
He has been on oral antibiotics for the past few weeks.
He drinks a few beers a week. He is a former smoker.
Medical History
Past Medical History
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
Past Surgical History: Reports None
Social History
Tobacco: Former Smoker
Alcohol: Occasional
Drug: None
Family History
Family History: Not pertinent
Allergies / Home Medications
Allergies reflects when Allergies were last updated in [facility].
Home Medications with original date entered in [facility]
Allergy/Medication List:
Allergies
Allergy/AdvReac Type Severity Reaction Status Date / Time
adhesive Allergy Unknown Verified 08/11/24 19:29
Home Medications
aflibercept 2 mg/0.05 mL intravitreal syringe (Eylea) 2 mg intravitreal Q8W 03/03/20
aspirin 81 mg chewable tablet 81 mg PO DAILY 03/03/20
empagliflozin 25 mg tablet (Jardiance) 25 mg PO DAILY 03/03/20
multivitamin 1 ea PO DAILY 03/03/20
rosuvastatin 10 mg tablet 20 mg PO QPM 03/03/20
Patient Own Insulin Pump 0 unit SC .VIA HUMALOG 01/12/24
calcium polycarbophil 625 mg tablet (FiberCon) 625 mg PO DAILY 01/12/24
docusate sodium 100 mg capsule (Colace) 100 mg PO DAILY 01/12/24
finasteride 5 mg tablet 5 mg PO DAILY 01/12/24
losartan 50 mg tablet 50 mg PO QPM 01/12/24
tamsulosin 0.4 mg capsule (Flomax) 0.4 mg PO DAILY 01/12/24
vitamins A,C,Y-kozj-cdcsfj 4,296 mcg-226 mg-90 mg capsule 1 cap PO DAILY 01/12/24
esomeprazole magnesium 20 mg capsule,delayed release (Nexium) 20 mg PO DAILY PRN acid reflux 05/24/24
amoxicillin 875 mg-potassium clavulanate 125 mg tablet 1 tab PO Q12H #28 tabs 05/27/24
doxycycline hyclate 100 mg capsule 100 mg PO BID #28 caps 05/27/24
Review of Systems
-
History Source: Patient
A 12 point ROS was completed and negative except as noted: Yes
Constitutional: Reports No Symptoms
EENT: Reports No Symptoms
Respiratory: Reports No Symptoms
Cardiac: Reports No Symptoms
Abdomen/GI: Reports No Symptoms
: Reports No Symptoms
Musculoskeletal: Reports No Symptoms
Skin: Reports See HPI
Neurological: Reports No Symptoms
Endocrine: Reports No Symptoms
Hematologic/Lymphatic: Reports No Symptoms
Psych: Reports No Symptoms
Physical Exam
Vital Signs
Vital Signs
Temp Pulse Resp BP Pulse Ox
97.4 F 76 18 147/72 100
08/11/24 19:29 08/11/24 19:29 08/11/24 19:29 08/11/24 19:29 08/11/24 21:22
Physical Exam
General: Well Developed, Well Nourished and No Apparent Distress
HEENT: NormoCephalic, Moist mucous membranes and Atraumatic
Respiratory: Clear
Cardiac: S1/S2 and Regular Rhythm; No Murmur or Rub
GI: Soft, Non Tender, Non Distended and Normal Bowel Sounds; No Organomegaly
Rectal: Deferred by Provider
Musculoskeletal: No Clubbing, No Cyanosis and No Edema
Skin: Other (toe ulcer plantar surface, probes to bone ); No Rash
Neuro: Nonfocal/grossly intact
Laboratory Results
-
08/11/24 20:18
08/11/24 20:18
Data Reviewed
-
Lab Data: Labs Reviewed by me
Old Records: Reviewed
Impression/Plan
-
IMPRESSION:
PLAN:
# Right big toe ulcer/osteomyelitis
-Wound culture from 07/26 shows ESBL E. coli, Pseudomonas, Streptococcus species
-Check foot x-ray, IVANIA/arterial Doppler
-Podiatry consult
- Vascular consult
- Zosyn
- Plan for operating room on Monday
# Hyperglycemia secondary to infection
#Type 2 diabetes
-Blood sugar 330
- Hold Jardiance
-Continue insulin pump
- Check A1c
- Diabetic nurse petitioner consulted
# Hyperkalemia secondary to losartan
- Hold losartan
GERD
- Continue esomeprazole
Intraductal papillary mucinous neoplasm status post Whipple
Diabetic retinopathy
Diabetic neuropathy
Hyperlipidemia
- Continue statin
Essential hypertension
- Hold losartan
BPH
- Continue tamsulosin, finasteride
Full code
DVT prophylaxis�heparin
Diabetic diet
[2024-08-11] MEDS: FLUSH (NSS) 1 FLUSH IV (22:10)
[2024-08-11] MEDS: ZOSYN 50 IV (22:14)
[2024-08-11 23:30] VITALS: BP 123/66
[2024-08-12 00:11] VITALS: BP 122/66
[2024-08-12 00:20] LABS: Glucose - Point of Care 157 mg/dl (70-99)
[2024-08-12 01:08] VITALS: BMI 28.3
[2024-08-12] MEDS: ZOSYN 50 IV ×4 (04:13→22:23)
[2024-08-12] MEDS: FLUSH (NSS) 2 FLUSH IV (04:15)
--- NOTE | 2024-08-12 04:24 | PTCARENOTE ---
Patient received from ED and ambulated to room with own SPC. He was oriented to room and surroundings. He is Ox3, HRR, Lungs CTA. Right toe wound dressing dry and intact. Patient given sheet for own insulin pump. BS 157. Per patient uses
Humalog with basal rate from Midnight to 5am is 1.55, 5a-9a is 2.6 and pa to midnight is 1.4. Patients own meds sent to pharmacy. Med sheet on chart. IV Abx as ordered.
[2024-08-12 07:00] VITALS: BP 137/65
[2024-08-12 07:38] LABS: Hematocrit 36.8 % (39.0-52.0); Hemoglobin 12.5 g/dL (13.0-18.0); Mean Corp Hgb Conc. 34.0 g/dL (33.0-37.0); Mean Corpuscular Volume 93.6 fL (80.0-94.0); Nucleated Red Blood Cells % 0 % (-); Platelet Count 312 10^3/uL (130-400); Red Cell Dist. Width 13.0 % (11.5-14.5)
[2024-08-12 07:40] LABS: Glucose - Point of Care 139 mg/dl (70-99)
--- NOTE | 2024-08-12 07:44 | W.PN.UPDATE ---
Update Note
Progress Note Update
pt seen at bedside
Well known to me
+ osteo/ulcer right foot hallux
stable
bx 2 weeks ago, Id consult
will plan for amp tomorrow hallux right foot pending [facility] input
full consult dictated
[2024-08-12 08:27] LABS: ALT (SGPT) 21 U/L (0-50); AST (SGOT) 20 U/L (17-59); Albumin 3.4 g/dl (3.5-5.0); Alkaline Phosphatase 78 U/L (38-126); Blood Urea Nitrogen 31 mg/dl (9-20); Calcium 8.6 mg/dl (8.4-10.2); Carbon Dioxide 23 mmol/L (22-30); Chloride 109 mmol/L (98-107); Estimated Creatinine Clearance 71 ml/min; Glucose 157 mg/dl (70-99); Potassium 4.4 mmol/L (3.5-5.1); Sodium 138 mmol/L (135-145); Total Protein 5.9 g/dl (6.3-8.2); eGFR > 60.00
[2024-08-12] MEDS: CRESTOR 20 MG PO (08:28)
[2024-08-12] MEDS: THERAGRAN 1 TABLET PO (08:29)
[2024-08-12] MEDS: FIBERCON 625 MG PO (08:29)
[2024-08-12] MEDS: LOW STRENGTH ASPIRIN 81 MG PO (08:29)
[2024-08-12] MEDS: FLOMAX 0.4 MG PO (08:29)
[2024-08-12] MEDS: LASIX 20 MG PO (08:29)
[2024-08-12] MEDS: COLACE 100 MG PO (08:30)
[2024-08-12] MEDS: HEPARIN 5000 UNITS SC ×2 (08:30→21:08)
[2024-08-12] MEDS: PROSCAR 5 MG PO (08:30)
[2024-08-12] MEDS: PT'S OWN INSULIN PUMP - HumaLOG SC ×2 (08:34→22:23)
[2024-08-12] MEDS: COLCHICINE 0.6 MG PO (08:35)
--- NOTE | 2024-08-12 08:42 | PN.DE.MGMTRT ---
Insulin Management
- -
08/12/24: Insulin pump Management Consult
69 year old male w/PMH: HTN, HLD, GERD, Non-Hodgkin lymphoma, T2DM, Neuropathy, pancreatic cancer (status post Whipple), CKD stage II, enlarged prostate, IDDM (insulin pump) with retinopathy, LLE ischemia, and osteomyelitis who presented to the ED
after recommendation by his clinical aide due to a non healing left big toe ulcer 2/2 osteomyelitis that was revealed after biopsy.
Pt awake, alert, oriented, sitting up in chair, pleasant, offers no complaints, able to discuss diabetes mgt.
States he was told to come in for IV antibiotics and toe amputation.
Pt follows with [facility] Dr. Waters. He uses Omnipod pump with CGM-Dexcom G6, Humalog insulin and Jardiance 25mg daily.
Last A1C was 8.8% in 01/2024, Cr 1.0, eGFR>60 today.
Venous glucose was 331 on admission, was down to 157 by MN and FBG was 157 POC this AM.
Pump is currently in Automated mode, at following settings:
Basal 12am - 5am 1.55 units
5am - 9am 2.6 units
9am - 12am 1.4 units
ICR 1:8
ICF 1:30
Target 130
Total 24 hr basal 52 .15 units.
Changes Pod Q2 days. Pt able to independently manage his pump without difficulties. Will update A1C.
Will make no changes to current pump settings. Will cont to follow and adjust settings if needed.
Will HOLD off on starting Farxiga (Takes Jardiance at home)
Diabetes History
- -
Type of Diabetes: 2 requiring insulin
Pre-Admission Diabetes Regimen
08/11/24 08/12/24
20:18 07:07
Creatinine 1.1 1.0
Insulin Pump Settings
IP Diabetes Regimen
08/11/24 08/12/24 08/12/24
20:18 00:18 07:07
Glucose 331 H 157 H
POC Glucose 157 H
08/12/24
07:37
Glucose
POC Glucose 139 H
Patient Education
--- NOTE | 2024-08-12 08:52 | CON.VAS ---
Addendum entered and electronically signed by Hayder Hector III, MD 08/12/24 19:30:
This patient was seen and examined in collaboration with SUNNY Barba. I agree with the history and physical exam as well as the assessment and plan. I have the following additions:
Patient known to me from prior endovascular intervention on the left lower extremity
Now with right hallux osteo
Podiatry is planning for hallux amputation
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
Recommendation is for right lower extremity arteriogram and possible endovascular intervention. The technical aspects of this procedure were discussed with him in detail. The benefits and rationale for this approach were discussed with him in
detail. Operative risks were discussed with him in detail including but not limited to arterial access site injury, bleeding, infection, contrast nephropathy, distal embolization and the inability to successfully complete endovascular intervention.
He expressed a clear understanding of our conversation and agrees to proceed with surgery as detailed above.
We will plan for arteriogram MondayAugust 14. I have spoken with Dr. Arciniega about this plan and we will modify the timing for hallux amputation accordingly.
Signed:
Hayder Hector III, MD
Vascular Surgery
[facility]
Original Note:
Consultation
Consultation Request
Date/Time Consultation Performed: 08/12/24 10am
Performing Provider: Krunal
Reason for Consultation: Nonhealing wounds/PAD evaluation
Medical History
-
Chief Complaint: Nonhealing wounds
History of Present Illness:
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
can sterilizer due to left big toe ulcer that he has had for 6 years. He recently had biopsy that revealed osteomyelitis. He was told to come in for IV antibiotics and toe amputation by his can sterilizer Dr. Arciniega. He has foul-smelling drainage from the
open wound.
Vascular consultation for nonhealing wounds/PAD eval. Patient seen at bedside this morning with Dr. Hector. Last seen in our office 02/29/24. Plans to follow up in 6 months with arterial US.
Patient has +2 PT pulses bilaterally, +2 DP pulse to the right foot. Left foot is wrapped so I could not palpate DP on that side.
Foot XRay: FINDINGS/IMPRESSION: Soft tissue swelling of the medial forefoot primarily involving the first toe with distal soft tissue wounds noted. Demineralization at the lateral aspect of the base of the first distal phalanx most suggestive of
acute osteomyelitis. No acute fracture or dislocation. Mild osteoarthritic changes throughout the forefoot. Vascular calcifications.
Vascular procedural hx:
01/15/24- Drug-coated balloon angioplasty of left below-knee popliteal artery stenosis (4 mm x 80 mm Lutonix DCB)2.) Balloon angioplasty of left tibioperoneal trunk stenosis (3 mm x 40 mm angioplasty balloon)3.) Diagnostic aortobiiliac arteriogram4.)
Diagnostic left lower extremity arteriogram5.) Ultrasound-guided percutaneous access to the right common femoral artery�6.) Pro-glide closure to right femoral artery access
Past Medical History
Past Medical History: Other (Asthma, GERD, HTN, Hypercholesterolemia, IDDM and Other (Non-Hodgkin's lymphoma, pancreatic cyst))
Past Surgical History: Other (Multiple toe debridements by podiatry, vascular procedural history above)
Social History
Tobacco: Former Smoker (quit 2014)
Alcohol: Occasional
Personal:
Living: With Family
Employment: Employed
Allergies / Home Medications
Allergy/AdvReac Type Severity Reaction Status Date / Time
adhesive Allergy Unknown Verified 08/11/24 19:29
�Medication �Instructions �Recorded �Confirmed �Type
aflibercept 2 mg/0.05 mL 2 mg intravitreal Q8W Ophthalmic 03/03/20 08/11/24 History
intravitreal syringe (Eylea) Agent;
aspirin 81 mg chewable tablet 81 mg PO DAILY Blood Clot 03/03/20 08/11/24 History
Prevention/Tx
empagliflozin 25 mg tablet 25 mg PO DAILY Diabetes 03/03/20 08/11/24 History
(Jardiance)
multivitamin 1 ea PO DAILY Supplement 03/03/20 08/11/24 History
rosuvastatin 10 mg tablet 20 mg PO DAILY High Cholesterol 03/03/20 08/11/24 History
Patient Own Insulin Pump 0 unit SC .VIA HUMALOG Diabetes 01/12/24 08/11/24 History
calcium polycarbophil 625 mg 625 mg PO DAILY Constipation 01/12/24 08/11/24 History
tablet (FiberCon)
docusate sodium 100 mg capsule 100 mg PO DAILY STTOL SOFTENER 01/12/24 08/11/24 History
(Colace)
finasteride 5 mg tablet 5 mg PO DAILY BPH 01/12/24 08/11/24 History
losartan 50 mg tablet 50 mg PO DAILY Blood Pressure 01/12/24 08/11/24 History
tamsulosin 0.4 mg capsule (Flomax) 0.4 mg PO DAILY Urinary Issue 01/12/24 08/11/24 History
esomeprazole magnesium 20 mg 20 mg PO DAILY PRN acid reflux 05/24/24 08/11/24 History
capsule,delayed release (Nexium)
colchicine 0.6 mg tablet 0.6 mg PO DAILY Heart 08/11/24 08/11/24 History
Disease/Condition
cranberry 500 mg capsule 500 mg PO DAILY Supplement 08/11/24 08/11/24 History
furosemide 20 mg tablet (Lasix) 20 mg PO DAILY Fluid 08/11/24 08/11/24 History
Retention/Swelling
sacubitril 49 mg-valsartan 51 mg 1 tab PO BID Heart Failure 08/11/24 08/11/24 History
tablet (Entresto)
Review of Systems
-
History Source: Patient
All other systems: Negative unless noted
Constitutional: Reports No Symptoms
EENT: Reports No Symptoms
Respiratory: Reports No Symptoms
Cardiac: Reports No Symptoms
Vascular: Denies Leg Pain / Claudication
Abdomen/GI: Reports No Symptoms
: Reports No Symptoms
Musculoskeletal: Reports Edema
Skin: Reports Other (Nonhealing left great toe wound)
Neurological: Reports No Symptoms
Physical Exam
Vital Signs
Temp Pulse Resp BP Pulse Ox
98.3 F 66 12 137/65 95
08/12/24 07:00 08/12/24 08:29 08/12/24 07:00 08/12/24 08:29 08/12/24 07:00
Lab Results
08/12/24 07:07
08/12/24 07:07
Physical Exam
General: No Apparent Distress
HEENT: Normocephalic and Atraumatic
Respiratory: Non Labored Respirations
Cardiac: Negative JVD
GI: Soft and Non Tender
Musculoskeletal: No Clubbing, No Cyanosis and Edema (Scant edema to the left foot)
Skin: Other (Nonhealing left first toe wound)
Neuro: Awake, Alert and Oriented
Psych: Calm
Pulses: Left Dorsalis Pedis: Doppler (Foot wrapped), Right Dorsalis Pedis: +2 and Bilateral Posterior Tibial: +2
Assessment / Plan
-
69 yo male here with nonhealing left first toe wound. Was referred by podiatry for toe amputation on this admission.
Follows in our office for PAD
Plan:
Arterial ultrasound pending
Will follow-up with patient when US complete with Dr. Hector
Data Reviewed
-
Labs: Labs Reviewed by me
--- NOTE | 2024-08-12 10:17 | W.PN.HOSP.TC ---
Today's Communication/Plan
-
Assessment / Plan
Assessment / Plan
General: No Apparent Distress, Comfortable and Conversant
HEENT: NormoCephalic, Moist mucous membranes, Atraumatic
Respiratory: Clear and Non Labored Respirations
Cardiac: S1/S2 and Regular Rhythm; No Rub or Gallop
GI: Soft, Non Tender, Non Distended and Normal Bowel Sounds
Musculoskeletal: No Edema, right foot with wound dressing in place
Skin: Warm and dry
: NO Hector
Neuro: Awake, Alert, Nonfocal/grossly intact
Psych: Calm and Intact Judgment/Insight
Mr. Gomez is a 69-year-old male with a medical history of pancreatic cancer (status post Whipple), non-Hodgkin's lymphoma, CKD stage II, hypertension, enlarged prostate, IDDM (insulin pump) with retinopathy, left lower extremity ischemia, and
osteomyelitis (right hallux treated with antibiotics for the past few months) who presents now at the urging of his outpatient quality assurance coach for definitive management of his right hallux osteomyelitis.
Right hallux osteomyelitis:
- Acute on chronic
- Tentative plan for amputation pending vascular evaluation
- Continue antibiotics with Zosyn
- Tight blood glucose control, appreciate diabetic DELI WORKER assistance
IDDM:
- Patient has insulin pump in place
- Blood glucose currently appears reasonably well-controlled
- Will check hemoglobin A1c
- Diabetes management DELI WORKER following
Hyperkalemia:
- Mild, resolved
- Will continue holding losartan
CKD stage II:
- Stable
- Monitor
Hypertension:
- Currently reasonably well-controlled
- Will clarify outpatient antihypertensive regimen before continuing as med rec currently shows he is taking both losartan and Entresto
PAD:
- History of left lower limb ischemia
- Continue aspirin and statin
Enlarged prostate:
- Continue home finasteride and tamsulosin
DVT prophylaxis: Subcu heparin
CODE STATUS: Full code
Total time spent on today's encounter was 38 minutes
Anticipated Discharge: > 48 hours
Subjective/Interval History
-
Date of Service: August 12, 2024
Patient was seen and examined at bedside. Comfortable and without pain.
Objective Data
-
Labs:
Laboratory Results
08/12/24
07:07
WBC 6.9
Hgb 12.5 L
Hct 36.8 L
Plt Count 312
Sodium 138
Potassium 4.4
Chloride 109 H
Carbon Dioxide 23
BUN 31 H
Creatinine 1.0
Glucose 157 H
Calcium 8.6
Total Bilirubin 0.4
AST 20
ALT 21
Alkaline Phosphatase 78
Vital Signs:
Vital Signs
Temp Pulse Resp BP Pulse Ox
98.3 F 66 12 137/65 95
08/12/24 07:00 08/12/24 08:29 08/12/24 07:00 08/12/24 08:29 08/12/24 07:00
I&O
08/11/24 08/12/24 08/13/24
06:59 06:59 06:59
Intake Total 50 / 50
Balance 50 / 50
Review of Systems
-
History Source: Patient
All other systems: Reviewed and negative
Physical Exam
-
General: No Apparent Distress
[2024-08-12 10:37] LABS: Glycohemoglobin (HgbA1c) 9.6 % (4.0-5.6)
[2024-08-12 11:39] LABS: Glucose - Point of Care 246 mg/dl (70-99)
--- NOTE | 2024-08-12 12:33 | CM ---
CM following re: discharge planning.
Reviewed pt' chart, met with pt.
Pt is a 69 year old male, admitted with primary dx of Right big toe ulcer/osteomyelitis. 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
hypertension, BPH.
Pt reports he lives alone in a 2SH, 2 steps to enter, has supportive girlfriend for 6 years, has no children, has a cat and girlfriend is taking care of the cat while pt hospitalized. 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 No DME,
known to [facility], no SNF history. Pt stated he feels he will need VN services and he preferred [facility]. Pt is aware he is to OR tomorrow for amputation of Right big toe. Pt stated his girlfriend will stay with him upon the discharge to help
with recovery.
CM will make a referral to [facility] after surgery.
PCP: Piter Duffy III
Pharmacy: [facility]
D/C plan: home with probably [facility] and girlfriend support.
CM will follow with discharge plan updates as hospitalization progresses
[2024-08-12] MEDS: PT'S OWN INSULIN PUMP - HumaLOG 4 UNIT SC (13:15)
[2024-08-12 15:00] VITALS: BP 90/51
--- NOTE | 2024-08-12 16:28 | WOUNDNOTE ---
R MEDIAL FOOT AND GREAT TOE
--- NOTE | 2024-08-12 16:29 | WOUNDNOTE ---
[facility] RN note: Patient admitted with Diabetic foot ulcer, osteomyelitis.
See H&P for complete history.
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
Wound Location and type/assessment: Patient admitted with: R medial foot and R great toe diabetic ulcers with osteomyelitis. Reviewed Dr. Arciniega's note, for amp of toe, post vascular studies. Patient reports vascular wants to do an angiogram before
surgery. R TBI 0.46 with monophasic wave forms of dorsalis pedis and posterior tibial arteries. Heels are both intact, patient sitting in recliner chair currently, no reported sacral ulcers. Patient has a Darco shoe at bedside for R foot, ambulating
with heel touch only.
Appetite: Good.
Pressure redistribution devices in place: On Accumax, can turn self in bed, air cushion brought in to use on top of pillow under calves when in bed. In recliner chair with legs elevated, heels off end of recliner.
Plan: Dry dressing changed on R foot, protective foam applied to L heel. Will follow along peripherally and assist as needed Post op wound care per Dr. Arciniega. Updated care plan.
Note to case management of equipment requested for discharge: TBD
Recommend follow up with [employer] [facility] [facility].
[2024-08-12 16:49] VITALS: BP 100/68
[2024-08-12 17:11] LABS: Glucose - Point of Care 146 mg/dl (70-99)
[2024-08-12] MEDS: PT'S OWN INSULIN PUMP - HumaLOG 7 UNIT SC (18:00)
[2024-08-12 22:13] LABS: Glucose - Point of Care 159 mg/dl (70-99)
[2024-08-12 23:39] VITALS: BP 131/69
[2024-08-13] VITALS (17 sets, daily range): BP systolic 109–166; BP diastolic 64–96
[2024-08-13] MEDS: ZOSYN 50 IV ×4 (03:59→22:12)
[2024-08-13 07:35] LABS: Hematocrit 41.9 % (39.0-52.0); Hemoglobin 14.1 g/dL (13.0-18.0); Mean Corp Hgb Conc. 33.7 g/dL (33.0-37.0); Mean Corpuscular Volume 94.6 fL (80.0-94.0); Nucleated Red Blood Cells % 0 % (-); Platelet Count 347 10^3/uL (130-400); Red Cell Dist. Width 13.1 % (11.5-14.5)
--- NOTE | 2024-08-13 08:02 | PN.DE.MGMTRT ---
Insulin Management
- -
08/12/24: Insulin pump Management Consult Follow up
Patient sent to ED by his billing coordinator due to a non healing left big toe ulcer 2/2 osteomyelitis that was revealed after biopsy 08/11. PMH: HTN, HLD, GERD, Non-Hodgkin lymphoma, T2DM, Neuropathy, pancreatic cancer (status post Whipple), CKD stage II,
enlarged prostate, IDDM (insulin pump) with retinopathy, LLE ischemia, and osteomyelitis. Prior to admission was using Omnipod pump with CGM-Dexcom G6, Humalog insulin and Jardiance 25mg daily. Current A1C 9.6%, cr 1, eGFR > 60.
Pt awake, alert, oriented, resting in bed, pleasant, offers no complaints, able to discuss diabetes mgt. States he has had diabetes 40+ years, follows with [facility] Dr. Waters. Patient for angiogram today, possible toe amputation 08/14.
I did discuss with patient A1C of 9.6 and need to improve control to avoid further complications. First discussed bolusing before a meal; he admits he often forgets to bolus. He will make a concerted effort to bolus 10 minutes before eating.
Glucose range 139 to 246.
Pump is currently in Automated mode, at following settings:
Basal 12am - 5am 1.55 units
5am - 9am 2.6 units
9am - 12am 1.4 units
ICR 1:8
ICF 1:30
Target 130
Total 24 hr basal 52.15 units.
Changes Pod Q2 days. Pt able to independently manage his pump without difficulty.
Will make no changes to current pump settings. Will cont to follow and adjust settings if needed.
Will HOLD off on starting Farxiga (Takes Jardiance at home)
Diabetes History
- -
Type of Diabetes: 2 requiring insulin
Pre-Admission Diabetes Regimen
08/12/24
07:07
Creatinine 1.0
Lab Results
Hemoglobin A1c 9.6 % (4.0-5.6) H 08/12/24 07:07
Insulin Pump Settings
IP Diabetes Regimen
08/12/24 08/12/24 08/12/24
07:07 11:38 17:10
Glucose 157 H
POC Glucose 246 H 146 H
08/12/24
22:04
Glucose
POC Glucose 159 H
Meal type: Dinner
Amount consumed: 100%
Patient Education
[2024-08-13] MEDS: HEPARIN 5000 UNITS SC ×2 (08:17→20:45)
[2024-08-13] MEDS: LOW STRENGTH ASPIRIN 81 MG PO (08:17)
[2024-08-13] MEDS: FLOMAX 0.4 MG PO (08:17)
[2024-08-13] MEDS: PROSCAR 5 MG PO (08:17)
[2024-08-13] MEDS: THERAGRAN 1 TABLET PO (08:18)
[2024-08-13] MEDS: FIBERCON 625 MG PO (08:19)
[2024-08-13] MEDS: COLACE 100 MG PO (08:19)
[2024-08-13] MEDS: LASIX 20 MG PO (08:19)
[2024-08-13] MEDS: CRESTOR 20 MG PO (08:19)
[2024-08-13] MEDS: COLCHICINE 0.6 MG PO (08:19)
[2024-08-13 08:31] LABS: Blood Urea Nitrogen 24 mg/dl (9-20); Calcium 8.4 mg/dl (8.4-10.2); Carbon Dioxide 25 mmol/L (22-30); Chloride 108 mmol/L (98-107); Estimated Creatinine Clearance 71 ml/min; Glucose 133 mg/dl (70-99); Potassium 4.9 mmol/L (3.5-5.1); Sodium 140 mmol/L (135-145); eGFR > 60.00
[2024-08-13 08:45] LABS: Glucose - Point of Care 115 mg/dl (70-99)
--- NOTE | 2024-08-13 08:50 | W.PN.UPDATE ---
Update Note
Progress Note Update
update, telephone yesterday. Will plan for agram tomorrow and amp
rec dry dressing change today to right foot. Will consent pt tomorrow when In round
[2024-08-13] MEDS: PT'S OWN INSULIN PUMP - HumaLOG 6.5 UNIT SC (09:11)
[2024-08-13 10:41] LABS: Glucose - Point of Care 122 mg/dl (70-99)
[2024-08-13 12:47] LABS: Glucose - Point of Care 133 mg/dl (70-99)
[2024-08-13] MEDS: PT'S OWN INSULIN PUMP - HumaLOG SC ×2 (12:51→17:00)
--- NOTE | 2024-08-13 14:13 | W.PN.HOSP.TC ---
Today's Communication/Plan
-
Assessment / Plan
Assessment / Plan
General: No Apparent Distress, Comfortable and Conversant
HEENT: NormoCephalic, Moist mucous membranes, Atraumatic
Respiratory: Clear and Non Labored Respirations
Cardiac: S1/S2 and Regular Rhythm; No Rub or Gallop
GI: Soft, Non Tender, Non Distended and Normal Bowel Sounds
Musculoskeletal: No Edema, right foot with wound dressing in place
Skin: Warm and dry
: NO Hector
Neuro: Awake, Alert, Nonfocal/grossly intact
Psych: Calm and Intact Judgment/Insight
Mr. Gomez is a 69-year-old male with a medical history of pancreatic cancer (status post Whipple), non-Hodgkin's lymphoma, CKD stage II, hypertension, enlarged prostate, IDDM (insulin pump) with retinopathy, left lower extremity ischemia, and
osteomyelitis (right hallux treated with antibiotics for the past few months) who presents now at the urging of his outpatient terrazzo tile maker for definitive management of his right hallux osteomyelitis.
Right hallux osteomyelitis:
- Acute on chronic
- N.p.o. for angiography later today
- Will follow-up with podiatry and vascular surgery regarding plans for surgical intervention after angiography
- Continue antibiotics with Zosyn
- Tight blood glucose control, appreciate diabetic PRINTED CIRCUIT BOARD PANELS DEVELOPER assistance
IDDM:
- Patient has insulin pump in place, continue current settings for now
- Hemoglobin A1c 9.6%
- Diabetes management PRINTED [employer] BOARD PANELS DEVELOPER following
Hyperkalemia:
- Mild, resolved
CKD stage II:
- Stable
- Monitor
Hypertension:
- Currently reasonably well-controlled
- Continue home Entresto
PAD:
- History of left lower limb ischemia
- Continue aspirin and statin
Enlarged prostate:
- Continue home finasteride and tamsulosin
DVT prophylaxis: Subcu heparin
CODE STATUS: Full code
Total time spent on today's encounter was 40 minutes
Anticipated Discharge: > 48 hours
Subjective/Interval History
-
Date of Service: August 13, 2024
Patient was seen and examined at bedside this morning. N.p.o. for planned angiography later today.
Objective Data
-
Labs:
Laboratory Results
08/13/24
07:23
WBC 6.5
Hgb 14.1
Hct 41.9
Plt Count 347
Sodium 140
Potassium 4.9
Chloride 108 H
Carbon Dioxide 25
BUN 24 H
Creatinine 1.0
Glucose 133 H
Calcium 8.4
Vital Signs:
Vital Signs
Temp Pulse Resp BP Pulse Ox
96.5 F L 82 20 115/63 97
08/13/24 07:00 08/13/24 08:19 08/13/24 07:00 08/13/24 08:19 08/13/24 11:24
I&O
08/12/24 08/13/24 08/14/24
06:59 06:59 06:59
Intake Total 50 / 50 560 / 560 130 / 130
Balance 50 / 50 560 / 560 130 / 130
Review of Systems
-
History Source: Patient
All other systems: Reviewed and negative
Physical Exam
-
General: No Apparent Distress
--- NOTE | 2024-08-13 14:56 | CON.ID ---
Consultation
-
Date/Time Consultation Requested: 08/13/2024 0949
Date/Time Consultation Performed: 08/13/2024 1450
Requesting Provider: Dr. Arciniega
Performing Provider: Dr. Brower
Reason for Consultation: Right hallux osteomyelitis
Chief Complaint / Past History
Chief Complaint
concerns for cellulitis to the right medial thigh/knee.
History of Present Illness
Mr Gomez is a 69 year old male with history of non-hodgkins lymphoma, DM2, right great toe ulcer with probable underlying osteomyelitis under the care of Lanette Whiting 5th toe osteomyelitis due to Pseudomonas who presented here for right leg
swelling and swelling posterior to the R knee. On the day of arrival he noted redness, warmth and swelling from the medial knee to the thigh, no fevers or chills. Had an US of the LE several weeks ago without DVT. He doesnt recall any trauma to
the thigh, no prior wounds, he does have notable xerosis.
Precancerous pancreatic cyst - Scheduled for Whipple at [facility] on 05/28/24Monday
Since arrival here shes afebrile, bp stable, wbc 6.6, hgb 14.1, plt 205, L shift is noted, cr 1.2, t bili 0.9, ast 35, alt 55, alk phos 119, 05/24 peripheal vasc: no DVT, had known right great toe ulcer, 05/21/24 Focus of uptake of activity involving
the distal right great toe correlating at least in part with uptake of activity seen at same site on recent bone scan. Findings are at least suspicious for osteomyelitis. 05/16 Three-phase positive bone scan throughout the right foot particularly
involving the great toe distally. Differential includes osteomyelitis, cellulitis, stress fractures, complex regional pain syndrome and diabetic osteoarthropathy, less likely soft tissue malignancy. Recommend correlation with radiographs and
possibly MRI, as clinically indicated. blood cultures x2 are no growth to date, currently on vancomycin and zosyn
Past History
Additional Past Medical History:
HTN
Hypercholesterolemia
IDDM (on insulin pump )
CKD2/3a
Valvular Disease
PAD, S/P angiogram on 01/15/24 and status post angioplasty by vascular surgeon for critically limb ischemia of LLEx )
Peripheral neuropathy
HX non-Hodgkin lymphoma
HX Melanoma
HX Pancreatic cyst (w/u pending OP)
Additional Past Surgical History:
Foot surgery
LE angiogram
Allergy History:
adhesive Allergy (Verified 08/11/24 19:29)
Unknown
Medications Reviewed: Yes
Social History
Tobacco: Non-Smoker
Alcohol: None
Drug: None
Personal: Partner
Employment: Employed
Family History
Family History: Not Pertinent
Review of Systems
Vital Signs
Temp Pulse Resp BP Pulse Ox
96.5 F L 82 20 115/63 97
08/13/24 07:00 08/13/24 08:19 08/13/24 07:00 08/13/24 08:19 08/13/24 11:24
Physical Exam
Physical Exam
Constitutional: No Acute Distress, Comfortable and Non-toxic
Eyes: No Conjunctival Hemorrhage and Sclera Anicteric
Oral: No Thrush and No Ulcers
Cardiovascular: Regular Rate and S1/S2; Negative S3/S4
Pulmonary: Clear; Negative Wheezes, Rales or Rhonchi
Gastrointestinal: Soft, Non Tender and Non Distended
Extremities: Edema (Trace) and Venous Insufficiency; Negative Cyanosis
Wound: Other (Right hallux with plantar wound. Sutures in place in several areas. Dried/crusted blister medial first right met head with very small amount of purulent drainage.)
Neurological: Awake and Alert
Psychological: Calm
Lab / Diagnostic Study Results
08/13/24 07:23
08/13/24 07:23
Abs Immat Gran (auto) 0.0 10^3/uL (0-0.05) 08/13/24 07:23
Absolute Neuts (auto) 4.6 10^3/uL (1.4-6.5) 08/13/24 07:23
Absolute Lymphs (auto) 0.9 10^3/uL (1.2-3.4) L 08/13/24 07:23
Absolute Monos (auto) 0.6 10^3/uL (0.1-0.6) 08/13/24 07:23
Absolute Basos (auto) 0.1 10^3/uL (0-0.2) 08/13/24 07:23
Immature Gran % 0.5 % (0-0.5) 08/13/24 07:23
Neutrophils % 71.5 % (42.2-75.2) 08/13/24 07:23
Lymphocytes % 14.2 % (20.5-51.1) L 08/13/24 07:23
Monocytes % 8.9 % (1.7-9.3) 08/13/24 07:23
Eosinophils % 3.7 % (0-6) 08/13/24 07:23
Basophils % 1.2 % (0-2) 08/13/24 07:23
Microbiology Results
Micro:
08/12/24 01:11 MRSA Screen - Final
Nose No Methicillin Resistant Staphylococcus aureus isolated.
08/11/24 21:09 Blood Culture - Preliminary
Blood/Venous No Growth in 24 hours- Final report to follow
08/11/24 20:18 Blood Culture - Preliminary
Blood/Venous No Growth in 24 hours- Final report to follow
Imaging:
08/11/2024 plain film (right foot): Soft tissue swelling of the medial forefoot primarily involving the first toe, with distal soft tissue wounds noted. There is demineralization at the lateral aspect of the base of the first distal phalanx, most
suggestive of acute osteomyelitis. No acute fracture or dislocation. Mild osteoarthritic changes throughout the forefoot. Please see full dictation for additional detail.
Assessment / Plan
Right hallux osteomyelitis.
SSTI right medial foot following ambulation during travel [place] of state
HTN
Hypercholesterolemia
IDDM (on insulin pump )
CKD2/3a
Valvular Disease
PAD, S/P angiogram on 01/15/24 and status post angioplasty by vascular surgeon for critically limb ischemia of LLEx )
Peripheral neuropathy
HX non-Hodgkin lymphoma
HX Melanoma
HX Pancreatic cyst (w/u pending OP)
Recommendations:
Sensitivities of recovered isolates from bone biopsy reviewed (ESBL E. coli; Pseudomonas aeruginosa; strep species)
Continue with Zosyn.
Await angiogram
Await tentative right hallux amputation; send for path.
Tight glucose control for optimal leukocyte function.
Monitor WBC / temps.
[2024-08-13 15:47] LABS: Glucose - Point of Care 115 mg/dl (70-99)
--- NOTE | 2024-08-13 18:33 | W.SUR.POST ---
Surgical Immediate Post Op
Note
Pre Op Diagnosis: RLE Critical Limb Ischemia
Post Op Diagnosis: RLE Critical Limb Ischemia
Procedure Performed:RLE angiography, intravascular lithotripsy to PT artery, AT angioplasty + drug eluting stent. AT angioplasty + drug eluting stent.
Primary Surgeon: Hayder Hector MD
Secondary Surgeons: Jerry Easley MD
Anesthesia: see anesthesia record
Estimated Blood Loss: minimal
Fluids: see anesthesia record
Drains/Shunts: N/A
Specimens/Cultures: N/A
Doppler/Duplex/Angio (Y/N): Y
Complications: None
Operative Findings: As described in procedure
--- NOTE | 2024-08-13 18:53 | OR.RPT ---
Operative Report
Operative Report
Date of Operation: 08/13/2024
Pre Op Diagnosis:
1. [place] artery atherosclerosis with gangrene and ulceration of right hallux
2. Right hallux osteomyelitis
3. Diabetes with peripheral arterial occlusive disease
Post Op Diagnosis:
1. [place] artery atherosclerosis with gangrene and ulceration of right hallux
2. Right hallux osteomyelitis
3. Diabetes with peripheral arterial occlusive disease
Procedure:
1.) Intravascular lithotripsy to right posterior tibial artery (3 mm x 80 mm E8 shockwave)
2.) Balloon angioplasty and drug-eluting bioabsorbable scaffold stent placement to posterior tibial artery (2.5 mm x 28 mm Dee Esprit, postdilated to 3 mm)
3.) Balloon angioplasty and drug-eluting bioabsorbable scaffold stent placement to anterior tibial artery (3 mm x 28 mm Dee Esprit)
4.) Diagnostic aortobiiliac arteriogram
5.) Diagnostic right lower extremity arteriogram
6.) Ultrasound-Guided percutaneous access to the left common femoral artery
Surgeon: Hayder Hector III, MD
Records Management Associate: Jerry Easley MD PGY-6
Anesthesia: Sedation with local
Complications: None
Estimated Blood Loss: Less than 20 cc
History and Indications for Procedure: 69-year-old male with diabetes and peripheral arterial occlusive disease. He developed right hallux osteomyelitis with associated ulceration and gangrene of the toe.
Procedure in Detail: Jaycob Gomez was correctly identified and placed supine on the operating table. After adequate induction of anesthesia the bilateral groins were prepped and draped in the usual sterile fashion. A timeout was performed with
the nursing and anesthesia staff confirming the patient's identity as well as the nature and laterality of the procedure.
The left common femoral artery was identified under ultrasound guidance. The artery was patent. The superior and inferior aspects of the femoral head were identified with radiographic guidance and marked at the skin level. The proposed puncture site
was infiltrated with local anesthesia. Under ultrasound guidance we accessed the left common femoral artery with a micropuncture needle and upsized to a 5 Fr sheath over a ESCAPESwithYOU wire. The wire and a Shepherds hook flush catheter were advanced into
the distal abdominal aorta and a diagnostic aorto-biiliac arteriogram was performed:
AORTO-ILIAC ARTERIOGRAM:
Aorta: Patent with no stenosis identified
Right common iliac artery: Patent with no stenosis identified
Right external iliac artery: Patent with no stenosis identified
Left common iliac artery: Patent with no stenosis identified
Left external iliac artery: Patent with no stenosis identified
Under roadmap guidance using a Glidewire and the Shepherds hook catheter we selected the right common iliac artery and then the external iliac artery. A catheter was tracked up and over the aortic bifurcation and placed in the distal external iliac
artery. A diagnostic right lower extremity arteriogram was then performed which demonstrated the following:
RIGHT LOWER EXTREMITY:
Common femoral artery: Patent with no stenosis identified
[place] femoral artery: Patent with no stenosis identified
Superficial femoral artery: Patent with mild stenosis identified distally
Popliteal artery: Patent with no significant stenosis identified
Anterior tibial artery: Patent. Dominant tibial artery runoff. Focal high-grade stenosis at the proximal aspect
Tibioperoneal trunk: Patent with focal high-grade stenosis at the bifurcation into the peroneal and posterior tibial artery
Peroneal artery: Patent but diminutive
Posterior tibial artery: Long segment occlusion with distal reconstitution near the ankle.
ENDOVASCULAR INTERVENTION: Systemic heparin was administered. Selected the superficial femoral artery with the Glidewire and carl's hook catheter. Exchanged out for a 5 Fr 70 cm sheath over a Storq wire. Selected the anterior tibial artery
under roadmap guidance with Quickcross catheter and glidewire. The stenosis was crossed. The wire and catheter were advanced into the distal anterior tibial artery and subtraction angio confirmed proper position in the true lumen. Exchanged out for
a [address] wire. A 3 mm x 40 mm angioplasty balloon was placed across the stenosis under roadmap guidance. The balloon was inflated to nominal pressure, held in place for 3-minute inflation and then deflated and removed over the wire.
Subsequent arteriogram demonstrated improved result but significant stenosis remained. I then brought into position a 3 mm x 28 mm Dee Esprit bioabsorbable drug-eluting scaffold and positioned this across the stenosis under roadmap guidance. The
stent was deployed and the delivery system removed over the wire. Subsequent arteriogram demonstrated an excellent technical result with a widely patent anterior tibial artery and no residual stenosis identified. There was brisk flow into the foot
through the dorsalis pedis artery with flow to the hallux identified.
We then focused our attention on the posterior tibial artery. I reselected the tibioperoneal trunk and posterior tibial artery with the [address] wire. Using this wire and a 0.014 Quickcross catheter I navigated through the long segment
occlusion of the posterior tibial artery. The wire and catheter were advanced to the ankle. Arteriogram confirmed position in the true lumen of the posterior tibial artery at the ankle. Due to the heavily calcified nature of the posterior tibial
artery disease and in an effort to modify the calcium to achieve maximum luminal gain with endovascular intervention I elected to proceed with intravascular lithotripsy. A 3 mm x 80 mm Shockwave balloon was placed in the distal posterior tibial
artery under roadmap guidance. Alternating rounds of lithotripsy pulse delivery at sub-nominal pressure and angioplasty at nominal pressure was performed across the entire length of posterior tibial artery occlusion. In between rounds of pulse
delivery and angioplasty the balloon was deflated and repositioned under roadmap guidance. All 400 pulses were delivered. Subsequent arteriogram demonstrated a significant improvement with a now patent posterior tibial artery but residual stenosis
and areas of dissection remained. I then brought into position a 3 mm x 220 mm angioplasty balloon. The entire length of posterior tibial artery was treated with this balloon. 2 separate inflations were performed encompassing the entire length of
posterior tibial artery and tibioperoneal trunk. Each inflation was performed at nominal pressure for 4 minutes. Subsequent arteriogram demonstrated an excellent technical result. The posterior tibial artery was widely patent with brisk flow.
There was an area of residual stenosis and a dissection flap in the mid posterior tibial artery. This was treated with a 2.5 mm x 28 mm Dee Esprit bioabsorbable drug-eluting scaffold. This was positioned in the desired location under roadmap
guidance and deployed. This was then postdilated with a 3 mm angioplasty balloon.
COMPLETION ARTERIOGRAM: Excellent technical result with widely patent anterior tibial artery and posterior tibial artery with brisk flow to the foot. No significant residual stenosis identified. Mild area of spasm in the distal posterior tibial
artery at the ankle.
Satisfied with this result we concluded the procedure. The sheath tip was pulled back into the left external iliac artery. Protamine was administered. The sheath was pulled and direct manual pressure was held over the puncture site until
hemostasis was achieved. A sterile dressing was applied.
The patient tolerated the procedure well and was taken to the recovery area in stable condition.
Attestation: I was present and responsible for the entire procedure.
Signed:
Hayder Hector III, MD
Vascular Surgery
[facility]
[2024-08-13 19:02] LABS: Glucose - Point of Care 140 mg/dl (70-99)
[2024-08-13] MEDS: PLAVIX 300 MG PO (19:31)
[2024-08-13] MEDS: NSS 1000 IV (19:47)
[2024-08-13] MEDS: ENTRESTO 49 MG/51 MG 1 TAB PO (20:46)
[2024-08-13 21:12] LABS: Glucose - Point of Care 139 mg/dl (70-99)
[2024-08-13] MEDS: PT'S OWN INSULIN PUMP - HumaLOG 6.7 UNIT SC (22:11)
[2024-08-14] VITALS (13 sets, daily range): BP systolic 83–142; BP diastolic 50–73; BMI 29.0
[2024-08-14] MEDS: PROTONIX 40 MG PO (03:24)
[2024-08-14] MEDS: ZOSYN 50 IV ×4 (03:59→21:59)
[2024-08-14] MEDS: ROXICODONE 5 MG PO ×2 (05:43→20:36)
[2024-08-14 06:54] LABS: Hematocrit 40.0 % (39.0-52.0); Hemoglobin 13.5 g/dL (13.0-18.0); Mean Corp Hgb Conc. 33.8 g/dL (33.0-37.0); Mean Corpuscular Volume 93.7 fL (80.0-94.0); Nucleated Red Blood Cells % 0 % (-); Platelet Count 329 10^3/uL (130-400); Red Cell Dist. Width 13.0 % (11.5-14.5)
[2024-08-14 07:07] LABS: Glucose - Point of Care 209 mg/dl (70-99)
[2024-08-14 07:17] LABS: Blood Urea Nitrogen 29 mg/dl (9-20); Calcium 8.3 mg/dl (8.4-10.2); Carbon Dioxide 23 mmol/L (22-30); Chloride 106 mmol/L (98-107); Estimated Creatinine Clearance 64 ml/min; Glucose 218 mg/dl (70-99); Potassium 4.7 mmol/L (3.5-5.1); Sodium 136 mmol/L (135-145); eGFR > 60.00
--- NOTE | 2024-08-14 08:09 | W.PN.VS ---
Today's Communication / Plan
-
Plan reviewed with attending.
Assessment/Plan
-
Assessment: 69yoM POD 1 s/p
1.) Intravascular lithotripsy to right posterior tibial artery (3 mm x 80 mm E8 shockwave)
2.) Balloon angioplasty and drug-eluting bioabsorbable scaffold stent placement to posterior tibial artery (2.5 mm x 28 mm Dee Esprit, postdilated to 3 mm)
3.) Balloon angioplasty and drug-eluting bioabsorbable scaffold stent placement to anterior tibial artery (3 mm x 28 mm Dee Esprit)
4.) Diagnostic aortobiiliac arteriogram
5.) Diagnostic right lower extremity arteriogram
6.) Ultrasound-Guided percutaneous access to the left common femoral artery
Plan:
Continue statin
Continue DAPT aspirin 81mg and Plavix 75mg daily
Remove Tegaderm this afternoon on left groin
1 month follow up with ultrasound placed in d/c instructions
We will sign off. Please call with questions and concerns.
Subjective Data
-
Date of Service: August 14, 2024
Pt alert and oriented. Pain well managed on current pain regimen. Denies fever, chills, nausea, vomiting. Tolerating PO.
Objective Data
-
Vital Signs
Temp Pulse Resp BP Pulse Ox
98.0 F 81 18 122/60 97
08/14/24 07:03 08/14/24 07:03 08/14/24 07:03 08/14/24 07:03 08/14/24 07:03
Intake and Output
08/13/24 08/14/24 08/15/24
06:59 06:59 06:59
Intake Total 560 / 560 2220 / 2220
Output Total 675 / 675
Balance 560 / 560 1545 / 1545
Intake:
Oral fluids 360 / 360 960 / 960
IV fluids (Total) 960 / 960
NSS 50 / 50
IV piggybacks 200 / 200 300 / 300
Output:
Urine, Voided 675 / 675
Other:
Number of approximated MODERATE 3 3
amounts of urine
Lab Results
08/14/24 06:16
08/14/24 06:16
Calcium 8.3 mg/dl (8.4-10.2) L 08/14/24 06:16
Total Bilirubin 0.4 mg/dl (0.2-1.3) 08/12/24 07:07
AST 20 U/L (17-59) 08/12/24 07:07
ALT 21 U/L (0-50) 08/12/24 07:07
Alkaline Phosphatase 78 U/L (38-126) 08/12/24 07:07
Total Protein 5.9 g/dl (6.3-8.2) L 08/12/24 07:07
Albumin 3.4 g/dl (3.5-5.0) L 08/12/24 07:07
Physical Exam
-
AxOx3
No tachycardia.
No dyspnea.
Abdomen soft.
Groin incision site dry, clean, in tact. No pain to palpation surrounding incision.
Distal pulses audible to doppler.
--- NOTE | 2024-08-14 08:10 | PN.DE.MGMTRT ---
Insulin Management
- -
08/14/24: Insulin pump Management Consult Follow up
Patient sent to ED by his computer applications developer due to a non healing left big toe ulcer 2/2 osteomyelitis that was revealed after biopsy 08/11. PMH: HTN, HLD, GERD, Non-Hodgkin lymphoma, T2DM, Neuropathy, pancreatic cancer (status post Whipple), CKD stage II,
enlarged prostate, IDDM (insulin pump) with retinopathy, LLE ischemia, and osteomyelitis. Prior to admission was using Omnipod pump with CGM-Dexcom G6, Humalog insulin and Jardiance 25mg daily. Current A1C 9.6%, cr 1, eGFR > 60.
Pt awake, alert, oriented, resting in bed, pleasant, offers no complaints, able to discuss diabetes mgt. States he has had diabetes 40+ years, follows with [facility] Dr. Waters. s/p vascular procedure with balloon angioplasty and
stent. For OR today for R great toes amputation.
I did discuss with patient A1C of 9.6 and need to improve control to avoid further complications. First discussed bolusing before a meal; he admits he often forgets to bolus. He will make a concerted effort to bolus 20 to 30 minutes before eating.
7/1 Glucose range 115 to 140.
7/2 Fasting glucose 209 Discussed with patient his sensor read much lower so he did not correct. Recommend nursing check glucose and if wide variation with sensor patient to calibrate his sensor to the fingerstick glucose. He is agreeable. Due
to change POD today; he states he has all supplies needed.
Pump is currently in Automated mode, at following settings:
Basal 12am - 5am 1.55 units
5am - 9am 2.6 units
9am - 12am 1.4 units
ICR 1:8
ICF 1:30
Target 130
Total 24 hr basal 52.15 units.
Changes Pod Q2 days. Pt able to independently manage his pump without difficulty.
Will make no changes to current pump settings. Will cont to follow and adjust settings if needed.
Will HOLD off on starting Farxiga (Takes Jardiance at home)
Diabetes History
- -
Type of Diabetes: 2 requiring insulin
Pre-Admission Diabetes Regimen
08/13/24 08/14/24
07:23 06:16
Creatinine 1.0 1.1
Lab Results
Hemoglobin A1c 9.6 % (4.0-5.6) H 08/12/24 07:07
Insulin Pump Settings
IP Diabetes Regimen
08/13/24 08/13/24 08/13/24
07:23 08:44 10:39
Glucose 133 H
POC Glucose 115 H 122 H
08/13/24 08/13/24 08/13/24
12:46 15:46 18:51
Glucose
POC Glucose 133 H 115 H 140 H
08/13/24 08/14/24 08/14/24
21:09 06:16 07:05
Glucose 218 H
POC Glucose 139 H 209 H
Meal type: Lunch
Meal type: Breakfast
Meal type: Breakfast
Amount consumed: 0
Amount consumed: 0
Amount consumed: 0
Patient Education
[2024-08-14] MEDS: PLAVIX 75 MG PO (08:11)
[2024-08-14] MEDS: COLACE 100 MG PO (08:11)
[2024-08-14] MEDS: FIBERCON 625 MG PO (08:11)
[2024-08-14] MEDS: LASIX 20 MG PO (08:11)
[2024-08-14] MEDS: CRESTOR 20 MG PO (08:11)
[2024-08-14] MEDS: ENTRESTO 49 MG/51 MG 1 TAB PO ×2 (08:11→19:45)
[2024-08-14] MEDS: LOW STRENGTH ASPIRIN 81 MG PO (08:12)
[2024-08-14] MEDS: THERAGRAN 1 TABLET PO (08:12)
[2024-08-14] MEDS: HEPARIN 5000 UNITS SC (08:12)
[2024-08-14] MEDS: PROSCAR 5 MG PO (08:12)
[2024-08-14] MEDS: COLCHICINE 0.6 MG PO (08:12)
[2024-08-14] MEDS: FLOMAX 0.4 MG PO (08:12)
[2024-08-14] MEDS: PT'S OWN INSULIN PUMP - HumaLOG 6.05 UNIT SC ×2 (08:19→13:00)
--- NOTE | 2024-08-14 08:39 | W.PN.UPDATE ---
Update Note
Progress Note Update
pt seen at bedside
no c/o pain, fcns
on abx
+ osteo hallux , small wound 1st met head from large healing bulla
a/p s/p hallux osteo right---s/p vasc intervention, dr rosa believes should heal
will plan for amp/1st met head resection right today
consent signed/in chart
npo after 8am, sx planned for 4pm today
--- NOTE | 2024-08-14 09:36 | W.PN.ID1 ---
Date of Service
Date of Service: August 14, 2024
Today's Communication
Continue antibiotics.
Assessment / Plan
Right hallux osteomyelitis.
SSTI right medial foot following ambulation during travel [place] of [place]
PAD
- RLE angiography, intravascular lithotripsy to PT artery, AT angioplasty + drug eluting stent. AT angioplasty + drug eluting stent. (08/13/24)
HTN
Hypercholesterolemia
IDDM (on insulin pump )
CKD2/3a
Valvular Disease
PAD, S/P angiogram on 01/15/24 and status post angioplasty by vascular surgeon for critically limb ischemia of LLEx )
Peripheral neuropathy
HX non-Hodgkin lymphoma
HX Melanoma
HX Pancreatic cyst (w/u pending OP)
Recommendations:
Sensitivities of recovered isolates from bone biopsy reviewed (ESBL E. coli; Pseudomonas aeruginosa; strep species)
Continue with Zosyn.
Await tentative right hallux amputation; send for proximal margin path.
Tight glucose control for optimal leukocyte function.
Monitor WBC / temps.
����������������������������������������������������������
Chief Complaint
-: Other (Right hallux osteomyelitis)
Subjective / Review of Systems
Review of Systems: No Fever and No Chills
Vital Signs / Physical Exam
Vital Signs
Vital Signs
Temp Pulse Resp BP Pulse Ox
98.0 F 81 18 122/68 97
08/14/24 07:03 08/14/24 08:11 08/14/24 07:03 08/14/24 08:11 08/14/24 08:33
Physical Exam
Constitutional: No Acute Distress, Comfortable and Non-toxic
Eyes: Sclera Anicteric
Cardiovascular: S1/S2; Negative S3/S4
Pulmonary: Non Labored
Gastrointestinal: Soft, Non Tender and Non Distended
Wound: Other (Right foot dressed.)
Neurological: Awake and Alert
Psychological: Calm
Objective Data
Lab Data
Lab Results
08/14/24 06:16
08/14/24 06:16
Estimated Creat Clear 64 ml/min 08/14/24 06:16
Total Bilirubin 0.4 mg/dl (0.2-1.3) 08/12/24 07:07
AST 20 U/L (17-59) 08/12/24 07:07
ALT 21 U/L (0-50) 08/12/24 07:07
Alkaline Phosphatase 78 U/L (38-126) 08/12/24 07:07
Most recent labs reviewed.
Micro Results:
08/11/24 21:09 Blood Culture - Preliminary
Blood/Venous No Growth in 48 hours- Final report to follow
08/11/24 20:18 Blood Culture - Preliminary
Blood/Venous No Growth in 48 hours- Final report to follow
08/12/24 01:11 MRSA Screen - Final
Nose No Methicillin Resistant Staphylococcus aureus isolated.
Imaging:
08/11/2024 plain film (right foot): Soft tissue swelling of the medial forefoot primarily involving the first toe, with distal soft tissue wounds noted. There is demineralization at the lateral aspect of the base of the first distal phalanx, most
suggestive of acute osteomyelitis. No acute fracture or dislocation. Mild osteoarthritic changes throughout the forefoot. Please see full dictation for additional detail.
--- NOTE | 2024-08-14 11:37 | CM ---
Cm following for discharge planning needs. Pt scheduled later today for amputation of the Right 1st met head.
Pt requests [facility] for home care services at discharge.
Plan: Discharge to home with [facility]; watch for SNF needs
[2024-08-14 12:23] LABS: Glucose - Point of Care 227 mg/dl (70-99)
--- NOTE | 2024-08-14 14:29 | W.PN.HOSP.TC ---
Today's Communication/Plan
-
Assessment / Plan
Assessment / Plan
General: No Apparent Distress, Comfortable and Conversant
HEENT: NormoCephalic, Moist mucous membranes, Atraumatic
Respiratory: Equal expansion and Non Labored Respirations
Cardiac: Regular rhythm, heart rate around 85
GI: Soft, Non Tender, Non Distended and Normal Bowel Sounds
Musculoskeletal: No Edema, right foot with wound dressing in place
Skin: Warm and dry
: NO Hector
Neuro: Awake, Alert, Nonfocal/grossly intact
Psych: Calm and Intact Judgment/Insight
Mr. Gomez is a 69-year-old male with a medical history of pancreatic cancer (status post Whipple), non-Hodgkin's lymphoma, CKD stage II, hypertension, enlarged prostate, IDDM (insulin pump) with retinopathy, left lower extremity ischemia, and
osteomyelitis (right hallux treated with antibiotics for the past few months) who presents now at the urging of his outpatient ged instructor for definitive management of his right hallux osteomyelitis.
Right hallux osteomyelitis:
- Acute on chronic
- Status post angiography with anterior tibial and posterior tibial stent placement with vascular yesterday 08/13, continue aspirin and Plavix
- N.p.o. for OR with podiatry later today
- Continue antibiotics with Zosyn
- Tight blood glucose control, appreciate diabetic NURSING STAFFING COORDINATOR assistance
IDDM:
- Patient has insulin pump in place, continue current settings for now
- Hemoglobin A1c 9.6%
- Diabetes management NURSING STAFFING COORDINATOR following
Hyperkalemia:
- Mild, resolved
CKD stage II:
- Stable
- Monitor
Hypertension:
- Currently reasonably well-controlled
- Continue home Entresto
PAD:
- History of left lower limb ischemia
- Continue DAPT and statin
Enlarged prostate:
- Continue home finasteride and tamsulosin
DVT prophylaxis: Subcu heparin, holding prior to surgical intervention today
CODE STATUS: Full code
Total time spent on today's encounter was 40 minutes
Anticipated Discharge: 24 - 48 hours
Subjective/Interval History
-
Date of Service: August 14, 2024
Patient was seen and examined at bedside. Comfortable. N.p.o. awaiting OR this afternoon with podiatry.
Objective Data
-
Labs:
Laboratory Results
08/14/24
06:16
WBC 7.9
Hgb 13.5
Hct 40.0
Plt Count 329
Sodium 136
Potassium 4.7
Chloride 106
Carbon Dioxide 23
BUN 29 H
Creatinine 1.1
Glucose 218 H
Calcium 8.3 L
Vital Signs:
Vital Signs
Temp Pulse Resp BP Pulse Ox
98.0 F 81 18 122/68 97
08/14/24 07:03 08/14/24 08:11 08/14/24 07:03 08/14/24 08:11 08/14/24 08:33
I&O
08/13/24 08/14/24 08/15/24
06:59 06:59 06:59
Intake Total 560 / 560 2220 / 2220
Output Total 675 / 675
Balance 560 / 560 1545 / 1545
Review of Systems
-
History Source: Patient
All other systems: Reviewed and negative
Physical Exam
-
General: No Apparent Distress
--- NOTE | 2024-08-14 14:34 | CM ---
For amputation of right 1st met head resection today. Confirmed service with [facility] with [facility]. Referral placed.
[2024-08-14] MEDS: PT'S OWN INSULIN PUMP - HumaLOG SC (15:54)
[2024-08-14 17:11] LABS: Glucose - Point of Care 173 mg/dl (70-99)
--- NOTE | 2024-08-14 17:12 | W.PN.UPDATE ---
Update Note
Progress Note Update
pt seen in rr
no pain
dressing cdi
cft intact
a/p s/p hallux amp/ met resection right---stable
wound closed and packed out medially
good bleeding intra op
bone C&s taken, but believe surgical cure
PT consult for nwb/crutches
will change bandages in am
anticipate dc monday/mon
[2024-08-14 21:09] LABS: Glucose - Point of Care 216 mg/dl (70-99)
[2024-08-14] MEDS: PT'S OWN INSULIN PUMP - HumaLOG 7 UNIT SC (22:00)
[2024-08-15] VITALS (7 sets, daily range): BP systolic 105–160; BP diastolic 50–81; BMI 29.9
[2024-08-15] MEDS: DILAUDID 1 MG IV ×5 (04:25→22:30)
[2024-08-15] MEDS: ZOSYN 50 IV ×4 (04:26→22:29)
[2024-08-15 05:49] LABS: Hematocrit 40.4 % (39.0-52.0); Hemoglobin 13.7 g/dL (13.0-18.0); Mean Corp Hgb Conc. 33.9 g/dL (33.0-37.0); Mean Corpuscular Volume 95.3 fL (80.0-94.0); Nucleated Red Blood Cells % 0 % (-); Platelet Count 332 10^3/uL (130-400); Red Cell Dist. Width 13.2 % (11.5-14.5)
[2024-08-15 06:18] LABS: Blood Urea Nitrogen 27 mg/dl (9-20); Calcium 8.7 mg/dl (8.4-10.2); Carbon Dioxide 24 mmol/L (22-30); Chloride 109 mmol/L (98-107); Estimated Creatinine Clearance 59 ml/min; Glucose 101 mg/dl (70-99); Potassium 4.4 mmol/L (3.5-5.1); Sodium 140 mmol/L (135-145); eGFR > 60.00
--- NOTE | 2024-08-15 07:17 | PN.DE.MGMTRT ---
Insulin Management
- -
08/15/24: Insulin pump Management Consult Follow up
Patient sent to ED by his visual lead due to a non healing left big toe ulcer 2/2 osteomyelitis that was revealed after biopsy 08/11. PMH: HTN, HLD, GERD, Non-Hodgkin lymphoma, T2DM, Neuropathy, pancreatic cancer (status post Whipple), CKD stage II,
enlarged prostate, IDDM (insulin pump) with retinopathy, LLE ischemia, and osteomyelitis. Prior to admission was using Omnipod pump with CGM-Dexcom G6, Humalog insulin and Jardiance 25mg daily. Current A1C 9.6%, cr 1, eGFR > 60.
Pt awake, alert, oriented, resting in bed, pleasant, offers no complaints, able to discuss diabetes mgt. States he has had diabetes 40+ years, follows with [facility] Dr. Waters.
POD 2 s/p vascular procedure with balloon angioplasty and stent.
POD 1 s/p R hallux amputation/1st metatarsal resection.
I did discuss with patient A1C of 9.6 and need to improve control to avoid further complications. First discussed bolusing before a meal; he admits he often forgets to bolus. He will make a concerted effort to bolus 20 to 30 minutes before eating.
7/ Fasting glucose 209 Discussed with patient his sensor read much lower so he did not correct. Recommend nursing check glucose and if wide variation with sensor patient to calibrate his sensor to the fingerstick glucose. He is agreeable. NPO
after breakfast till OR. Due to change POD today; he states he has all supplies needed.
7/3 Fasting glucose 101. Will resume SGLT-2 today.
Pump is currently in Automated mode, at following settings:
Basal 12am - 5am 1.55 units
5am - 9am 2.6 units
9am - 12am 1.4 units
ICR 1:8
ICF 1:30
Target 130
Total 24 hr basal 52.15 units.
Changes Pod Q2 days. Pt able to independently manage his pump without difficulty.
Will make no changes to current pump settings. Will cont to follow and adjust settings if needed.
Diabetes History
- -
Type of Diabetes: 2 requiring insulin
Pre-Admission Diabetes Regimen
08/14/24 08/15/24
06:16 05:19
Creatinine 1.1 1.2
Lab Results
Hemoglobin A1c 9.6 % (4.0-5.6) H 08/12/24 07:07
Insulin Pump Settings
IP Diabetes Regimen
08/14/24 08/14/24 08/14/24
06:16 12:22 17:09
Glucose 218 H
POC Glucose 227 H 173 H
08/14/24 08/15/24
21:04 05:19
Glucose 101 H
POC Glucose 216 H
Meal type: Lunch
Meal type: Breakfast
Amount consumed: 100%
Patient Education
[2024-08-15 07:55] LABS: Glucose - Point of Care 158 mg/dl (70-99)
--- NOTE | 2024-08-15 08:27 | W.PN.POD ---
Today's Communication
Today's Communication
s/p hallux amp/1st met resection---stable
no soi
cont abx, pain management
Pt consult
packig advanced, will pull tomorrow
[place] dc sat, po abx/pain meds/nwb right foot
Subjective
Chief Complaint
pt seen s/p hallux amp and 1st met resection
tender
no fc./ns
dressing cdi
Subjective
vasc intact, palp pulse, cft intact
foot warm
derm mild edema, sutures viable, intact
packing in place
Objective
Temp Pulse Resp BP Pulse Ox
97.7 F 83 20 127/66 96
08/15/24 07:00 08/15/24 07:00 08/15/24 07:00 08/15/24 07:00 08/15/24 07:00
08/15/24 05:19
08/15/24 05:19
Vital Signs and Lab results were reviewed.
[2024-08-15] MEDS: ENTRESTO 49 MG/51 MG 1 TAB PO ×2 (08:48→19:46)
[2024-08-15] MEDS: CRESTOR 20 MG PO (08:48)
[2024-08-15] MEDS: LOW STRENGTH ASPIRIN 81 MG PO (08:49)
[2024-08-15] MEDS: LASIX 20 MG PO (08:49)
[2024-08-15] MEDS: FLOMAX 0.4 MG PO (08:49)
[2024-08-15] MEDS: PROSCAR 5 MG PO (08:49)
[2024-08-15] MEDS: COLCHICINE 0.6 MG PO (08:49)
[2024-08-15] MEDS: PLAVIX 75 MG PO (08:49)
[2024-08-15] MEDS: THERAGRAN 1 TABLET PO (08:49)
[2024-08-15] MEDS: FARXIGA 10 MG PO (08:49)
[2024-08-15] MEDS: FIBERCON 625 MG PO (08:49)
[2024-08-15] MEDS: COLACE 100 MG PO (08:49)
[2024-08-15] MEDS: PT'S OWN INSULIN PUMP - HumaLOG 4 UNIT SC (08:54)
[2024-08-15] MEDS: NEURONTIN 100 MG PO ×3 (11:03→22:27)
--- NOTE | 2024-08-15 11:22 | W.PN.HOSP.TC ---
Today's Communication/Plan
-
Assessment / Plan
Assessment / Plan
General: No Apparent Distress, Comfortable and Conversant
HEENT: NormoCephalic, Moist mucous membranes, Atraumatic
Respiratory: Equal expansion and Non Labored Respirations
Cardiac: Regular rhythm, heart rate around 85
GI: Soft, Non Tender, Non Distended and Normal Bowel Sounds
Musculoskeletal: No Edema, right foot with surgical dressing in place
Skin: Warm and dry
: NO Hector
Neuro: Awake, Alert, Nonfocal/grossly intact
Psych: Calm and Intact Judgment/Insight
Mr. Gomez is a 69-year-old male with a medical history of pancreatic cancer (status post Whipple), non-Hodgkin's lymphoma, CKD stage II, hypertension, enlarged prostate, IDDM (insulin pump) with retinopathy, left lower extremity ischemia, and
osteomyelitis (right hallux treated with antibiotics for the past few months) who presents now at the urging of his outpatient opener for definitive management of his right hallux osteomyelitis.
Right hallux osteomyelitis:
- Acute on chronic
- Status post angiography with anterior tibial and posterior tibial stent placement with vascular 08/13, continue aspirin and Plavix
- OR yesterday with podiatry for amputation of the right hallux and first metatarsal, surgical cure likely achieved
- Continue antibiotics with Zosyn
- Tight blood glucose control, appreciate diabetic KENO CLERK assistance
- Multimodal pain control, low-dose gabapentin started
- Nonweightbearing right foot, to be evaluated by PT
- Anticipate discharge in the next 24 to 48 hours
IDDM:
- Patient has insulin pump in place, continue current settings for now
- Hemoglobin A1c 9.6%
- Diabetes management KENO CLERK following
Hyperkalemia:
- Mild, resolved
CKD stage II:
- Stable
- Monitor
Hypertension:
- Currently reasonably well-controlled
- Continue home Entresto
PAD:
- History of left lower limb ischemia
- Continue DAPT and statin
Enlarged prostate:
- Continue home finasteride and tamsulosin
DVT prophylaxis: Subcu heparin
CODE STATUS: Full code
Total time spent on today's encounter was 40 minutes
Anticipated Discharge: 24 - 48 hours
Subjective/Interval History
-
Date of Service: August 15, 2024
Patient was seen and examined at bedside this morning. Status post right hallux and first metatarsal resection yesterday 08/14. Tolerated procedure well likely surgical cure achieved. Patient reports phantom pain where his right hallux used to be.
Objective Data
-
Labs:
Laboratory Results
08/15/24
05:19
WBC 8.5
Hgb 13.7
Hct 40.4
Plt Count 332
Sodium 140
Potassium 4.4
Chloride 109 H
Carbon Dioxide 24
BUN 27 H
Creatinine 1.2
Glucose 101 H
Calcium 8.7
Vital Signs:
Vital Signs
Temp Pulse Resp BP Pulse Ox
97.7 F 83 20 127/66 96
08/15/24 07:00 08/15/24 08:48 08/15/24 07:00 08/15/24 08:48 08/15/24 07:00
I&O
08/14/24 08/15/24 08/16/24
06:59 06:59 06:59
Intake Total 2220 / 2220 1350 / 1350
Output Total 675 / 675 550 / 550
Balance 1545 / 1545 800 / 800
Review of Systems
-
History Source: Patient
All other systems: Reviewed and negative
Musculoskeletal: Reports Joint Pain (Right toe pain)
Physical Exam
-
General: No Apparent Distress
[2024-08-15 11:26] LABS: Glucose - Point of Care 136 mg/dl (70-99)
--- NOTE | 2024-08-15 11:45 | W.PN.ID1 ---
Date of Service
Date of Service: August 15, 2024
Today's Communication
Continue Zosyn for today.
Assessment / Plan
Right hallux osteomyelitis.
SSTI right medial foot [place]ulation [place]
PAD
- RLE angiography, intravascular lithotripsy to PT artery, AT angioplasty + drug eluting stent. AT angioplasty + drug eluting stent. (08/13/24)
HTN
Hypercholesterolemia
IDDM (on insulin pump )
CKD2/3a
Valvular Disease
PAD, S/P angiogram on 01/15/24 and status post angioplasty by vascular surgeon for critically limb ischemia of LLEx )
Peripheral neuropathy
HX non-Hodgkin lymphoma
HX Melanoma
HX Pancreatic cyst (w/u pending OP)
Recommendations:
Continue with Zosyn.
Tight glucose control for optimal leukocyte function.
Monitor WBC / temps.
Await pathology.
����������������������������������������������������������
Chief Complaint
-: Other (Right hallux osteomyelitis)
Subjective / Review of Systems
Patient seen and examined. S/p right hallux and partial first met resection yesterday.
Vital Signs / Physical Exam
Vital Signs
Vital Signs
Temp Pulse Resp BP Pulse Ox
97.7 F 83 20 127/66 96
08/15/24 07:00 08/15/24 08:48 08/15/24 07:00 08/15/24 08:48 08/15/24 07:00
Physical Exam
Constitutional: No Acute Distress, Comfortable and Non-toxic
Eyes: Sclera Anicteric
Cardiovascular: S1/S2; Negative S3/S4
Pulmonary: Non Labored
Gastrointestinal: Soft, Non Tender and Non Distended
Wound: Other (Right foot dressed.)
Neurological: Awake and Alert
Psychological: Calm
Objective Data
Lab Data
Lab Results
08/15/24 05:19
08/15/24 05:19
Estimated Creat Clear 59 ml/min 08/15/24 05:19
Total Bilirubin 0.4 mg/dl (0.2-1.3) 08/12/24 07:07
AST 20 U/L (17-59) 08/12/24 07:07
ALT 21 U/L (0-50) 08/12/24 07:07
Alkaline Phosphatase 78 U/L (38-126) 08/12/24 07:07
Most recent labs reviewed.
Micro Results:
08/14/24 16:25 Anaerobic Culture - Preliminary
Toe Culture pending. Anaerobic cultures are examined after 3
days incubation. Additional information to follow.
08/14/24 16:25 Wound Culture - Preliminary
Toe Gram Stain - Preliminary
08/14/24 16:25 Tissue Culture - Preliminary
Toe Gram Stain - Preliminary
08/11/24 21:09 Blood Culture - Preliminary
Blood/Venous No Growth in 72 hours- Final report to follow
08/11/24 20:18 Blood Culture - Preliminary
Blood/Venous No Growth in 72 hours- Final report to follow
08/12/24 01:11 MRSA Screen - Final
Nose No Methicillin Resistant Staphylococcus aureus isolated.
Imaging:
08/11/2024 plain film (right foot): Soft tissue swelling of the medial forefoot primarily involving the first toe, with distal soft tissue wounds noted. There is demineralization at the lateral aspect of the base of the first distal phalanx, most
suggestive of acute osteomyelitis. No acute fracture or dislocation. Mild osteoarthritic changes throughout the forefoot. Please see full dictation for additional detail.
--- NOTE | 2024-08-15 13:33 | CM ---
CM following re: discharge planning.
Reviewed pt' chart, met with pt.
Pt is s/p hallux amp/1st met resection, continue supportive care.
Pt lives alone in a 2SH, 2 steps to enter, has supportive girlfriend for 6 years, has no children, has a cat and girlfriend is taking care of the cat while pt hospitalized. 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
no SNF history.
PT and OT evaluations noted - home PT/OT recommended. Pt is aware, expressed his agreement and requested [facility].
A referral to [facility] noted - pt is accepted for VN services.
Please fax discharge instructions to Luiza BURROWS at [phone]
D/C plan: home with [facility] and girlfriend support.
CM will follow with discharge plan updates as hospitalization progresses
[2024-08-15] MEDS: PT'S OWN INSULIN PUMP - HumaLOG 5 UNIT SC ×2 (13:50→17:51)
[2024-08-15] MEDS: ROXICODONE 5 MG PO (13:54)
[2024-08-15 17:28] LABS: Glucose - Point of Care 140 mg/dl (70-99)
[2024-08-15] MEDS: HEPARIN 5000 UNITS SC (19:47)
[2024-08-15 21:01] LABS: Glucose - Point of Care 123 mg/dl (70-99)
[2024-08-15] MEDS: PT'S OWN INSULIN PUMP - HumaLOG SC (22:29)
[2024-08-16] MEDS: ZOSYN 50 IV ×4 (04:07→21:49)
[2024-08-16 05:50] VITALS: BMI 29.4
[2024-08-16 07:00] VITALS: BP 141/64
[2024-08-16 07:06] LABS: Glucose - Point of Care 108 mg/dl (70-99)
[2024-08-16] MEDS: PT'S OWN INSULIN PUMP - HumaLOG SC ×2 (07:38→21:52)
[2024-08-16] MEDS: ROXICODONE 5 MG PO ×2 (08:02→15:50)
[2024-08-16] MEDS: FIBERCON 625 MG PO (08:03)
[2024-08-16] MEDS: PLAVIX 75 MG PO (08:03)
[2024-08-16] MEDS: HEPARIN 5000 UNITS SC ×2 (08:03→20:34)
[2024-08-16] MEDS: LOW STRENGTH ASPIRIN 81 MG PO (08:03)
[2024-08-16] MEDS: FARXIGA 10 MG PO (08:03)
[2024-08-16] MEDS: COLACE 100 MG PO (08:03)
[2024-08-16] MEDS: ENTRESTO 49 MG/51 MG 1 TAB PO ×2 (08:03→20:28)
[2024-08-16] MEDS: CRESTOR 20 MG PO (08:03)
[2024-08-16] MEDS: NEURONTIN 100 MG PO (08:04)
[2024-08-16] MEDS: LASIX 20 MG PO (08:04)
[2024-08-16] MEDS: PROSCAR 5 MG PO (08:04)
[2024-08-16] MEDS: FLOMAX 0.4 MG PO (08:04)
[2024-08-16] MEDS: THERAGRAN 1 TABLET PO (08:04)
[2024-08-16] MEDS: COLCHICINE 0.6 MG PO (08:04)
--- NOTE | 2024-08-16 10:01 | W.PN.ID1 ---
Date of Service
Date of Service: August 16, 2024
Today's Communication
Continue antibiotics.
Assessment / Plan
Right hallux osteomyelitis.
SSTI right medial foot following ambulation during travel [place] of [place]
- s/p right hallux / part. first met resection (08/14/24)
PAD
- RLE angiography, intravascular lithotripsy to PT artery, AT angioplasty + drug eluting stent. AT angioplasty + drug eluting stent. (08/13/24)
HTN
Hypercholesterolemia
IDDM (on insulin pump )
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
Valvular Disease
PAD, S/P angiogram on 01/15/24 and status post angioplasty by vascular surgeon for critically limb ischemia of LLEx )
Peripheral neuropathy
HX non-Hodgkin lymphoma
HX Melanoma
HX Pancreatic cyst (w/u pending OP)
Recommendations:
Continue with Zosyn.
Tight glucose control for optimal leukocyte function.
Monitor WBC / temps.
Await pathology.
����������������������������������������������������������
Chief Complaint
-: Other (Right hallux osteomyelitis)
Subjective / Review of Systems
Patient seen and examined. Reports no difficulty with antibiotics. Pain in the foot is controlled.
Review of Systems: No Fever and No Chills
Vital Signs / Physical Exam
Vital Signs
Vital Signs
Temp Pulse Resp BP Pulse Ox
98.5 F 79 20 141/64 96
08/16/24 07:00 08/16/24 07:00 08/16/24 07:00 08/16/24 07:00 08/16/24 07:00
Physical Exam
Constitutional: No Acute Distress, Comfortable and Non-toxic
Eyes: Sclera Anicteric
Pulmonary: Non Labored
Gastrointestinal: Non Distended
Extremities: Venous Insufficiency
Wound: Other (Right foot dressed.)
Neurological: Awake and Alert
Psychological: Calm
Objective Data
Lab Data
Lab Results
08/15/24 05:19
08/15/24 05:19
Estimated Creat Clear 59 ml/min 08/15/24 05:19
Total Bilirubin 0.4 mg/dl (0.2-1.3) 08/12/24 07:07
AST 20 U/L (17-59) 08/12/24 07:07
ALT 21 U/L (0-50) 08/12/24 07:07
Alkaline Phosphatase 78 U/L (38-126) 08/12/24 07:07
Most recent labs reviewed.
Micro Results:
08/11/24 21:09 Blood Culture - Preliminary
Blood/Venous No Growth in 4 days- Final report to follow
08/11/24 20:18 Blood Culture - Preliminary
Blood/Venous No Growth in 4 days- Final report to follow
08/14/24 16:25 Anaerobic Culture - Preliminary
Toe Culture pending. Anaerobic cultures are examined after 3
days incubation. Additional information to follow.
08/14/24 16:25 Wound Culture - Preliminary
Toe Gram Stain - Preliminary
08/14/24 16:25 Tissue Culture - Preliminary
Toe Gram Stain - Preliminary
08/12/24 01:11 MRSA Screen - Final
Nose No Methicillin Resistant Staphylococcus aureus isolated.
Imaging:
08/14/2024, x-ray right foot: The first toe and the distal aspect of the first metatarsal have been resected in the interim. The joint alignments are otherwise maintained. No acute fracture or dislocation. Vascular calcifications. Soft tissue
swelling about the forefoot. Image personally viewed.
08/11/2024 plain film (right foot): Soft tissue swelling of the medial forefoot primarily involving the first toe, with distal soft tissue wounds noted. There is demineralization at the lateral aspect of the base of the first distal phalanx, most
suggestive of acute osteomyelitis. No acute fracture or dislocation. Mild osteoarthritic changes throughout the forefoot. Please see full dictation for additional detail.
--- NOTE | 2024-08-16 11:28 | W.PN.POD ---
Today's Communication
Today's Communication
s/p hallux amp/1st met resection right---stable
no soi
packing pulled, highly confident surgical cure
rec po abx upon dc x 10 days
will organized vna
use [facility]--dry bandages changes daily/adaptic 4x4 , ilana
nwb right foot
fu in office upon dc
anticipate dc monday
Subjective
Chief Complaint
pt seen s/p 1st met resection/hallux amp
tender
no f.vocational guidance counselor
dressing cdi
Subjective
vacs pulse palp, cft intact
derm suturees intact, no cellulitis
no pus
packing noted
no soi
edges viable
Objective
Temp Pulse Resp BP Pulse Ox
98.5 F 79 20 141/64 96
08/16/24 07:00 08/16/24 07:00 08/16/24 07:00 08/16/24 07:00 08/16/24 07:00
08/15/24 05:19
08/15/24 05:19
Vital Signs and Lab results were reviewed.
[2024-08-16 12:15] VITALS: BP 125/68; PULSE 67; O2SAT 94
[2024-08-16 12:19] LABS: Glucose - Point of Care 244 mg/dl (70-99)
[2024-08-16] MEDS: PT'S OWN INSULIN PUMP - HumaLOG 6 UNIT SC (12:28)
--- NOTE | 2024-08-16 13:53 | W.PN.HOSP.TC ---
Today's Communication/Plan
-
Assessment / Plan
Assessment / Plan
General: No Apparent Distress, Comfortable and Conversant
HEENT: NormoCephalic, Moist mucous membranes, Atraumatic
Respiratory: Equal expansion and Non Labored Respirations
Cardiac: Regular rhythm, heart rate around 80
GI: Soft, Non Tender, Non Distended and Normal Bowel Sounds
Musculoskeletal: No Edema, right foot with surgical dressing in place
Skin: Warm and dry
: NO Hector
Neuro: Awake, Alert, Nonfocal/grossly intact
Psych: Calm and Intact Judgment/Insight
Mr. Gomez is a 69-year-old male with a medical history of pancreatic cancer (status post Whipple), non-Hodgkin's lymphoma, CKD stage II, hypertension, enlarged prostate, IDDM (insulin pump) with retinopathy, left lower extremity ischemia, and
osteomyelitis (right hallux treated with antibiotics for the past few months) who presents now at the urging of his outpatient arabic professor for definitive management of his right hallux osteomyelitis.
Right hallux osteomyelitis:
- Acute on chronic
- Status post angiography with anterior tibial and posterior tibial stent placement with vascular 08/13, continue aspirin and Plavix
- OR 08/14 with podiatry for amputation of the right hallux and first metatarsal, surgical cure likely achieved
- Continue antibiotics with Zosyn and local wound care, follow-up with ID regarding antibiotic recommendations
- Tight blood glucose control, appreciate diabetic ELECTRONIC DIE MAKER assistance
- Multimodal pain control, started low-dose gabapentin which we will increase to 200 mg 3 times daily today
- Nonweightbearing right foot, will need home health
- Anticipate discharge Friday 08/18
IDDM:
- Patient has insulin pump in place, continue current settings for now
- Hemoglobin A1c 9.6%
- Diabetes management ELECTRONIC DIE MAKER following
Hyperkalemia:
- Mild, resolved
CKD stage II:
- Stable
- Monitor
Hypertension:
- Currently reasonably well-controlled
- Continue home Entresto
PAD:
- History of left lower limb ischemia
- Continue DAPT and statin
Enlarged prostate:
- Continue home finasteride and tamsulosin
DVT prophylaxis: Subcu heparin
CODE STATUS: Full code
Total time spent on today's encounter was 40 minutes
Anticipated Discharge: 24 - 48 hours
Subjective/Interval History
-
Date of Service: August 16, 2024
Patient was seen and examined at bedside this morning. Feeling well. Still has some postoperative pain that has been well-controlled with opiates and gabapentin.
Objective Data
-
Vital Signs:
Vital Signs
Temp Pulse Resp BP Pulse Ox
98.5 F 79 20 141/64 96
08/16/24 07:00 08/16/24 07:00 08/16/24 07:00 08/16/24 07:00 08/16/24 07:00
I&O
08/15/24 08/16/24 08/17/24
06:59 06:59 06:59
Intake Total 1350 / 1350 900 / 900
Output Total 550 / 550 3050 / 3050
Balance 800 / 800 -2150 / -2150
Review of Systems
-
History Source: Patient
All other systems: Reviewed and negative
Musculoskeletal: Reports Joint Pain (Right toe pain)
Physical Exam
-
General: No Apparent Distress
[2024-08-16 15:00] VITALS: BP 131/69
[2024-08-16 15:38] VITALS: BP 125/68; PULSE 67; O2SAT 96
[2024-08-16] MEDS: NEURONTIN 200 MG PO ×2 (16:52→21:51)
[2024-08-16 17:18] LABS: Glucose - Point of Care 267 mg/dl (70-99)
[2024-08-16] MEDS: PT'S OWN INSULIN PUMP - HumaLOG 5 UNIT SC (17:57)
[2024-08-16 21:54] LABS: Glucose - Point of Care 257 mg/dl (70-99)
[2024-08-16] MEDS: DILAUDID 1 MG IV (21:59)
[2024-08-16] MEDS: FLUSH (NSS) 3 FLUSH IV (22:01)
[2024-08-16 23:18] VITALS: BP 132/56
[2024-08-17] MEDS: ZOSYN 50 IV ×4 (03:24→21:28)
[2024-08-17] MEDS: FLUSH (NSS) 2 FLUSH IV ×4 (03:25→19:50)
[2024-08-17 07:09] LABS: Glucose - Point of Care 130 mg/dl (70-99)
[2024-08-17 07:33] VITALS: BP 120/69
[2024-08-17] MEDS: CRESTOR 20 MG PO (08:08)
[2024-08-17] MEDS: PROSCAR 5 MG PO (08:08)
[2024-08-17] MEDS: ENTRESTO 49 MG/51 MG 1 TAB PO ×2 (08:09→19:26)
[2024-08-17] MEDS: NEURONTIN 200 MG PO ×3 (08:09→21:28)
[2024-08-17] MEDS: COLACE 100 MG PO (08:09)
[2024-08-17] MEDS: PLAVIX 75 MG PO (08:09)
[2024-08-17] MEDS: COLCHICINE 0.6 MG PO (08:09)
[2024-08-17] MEDS: THERAGRAN 1 TABLET PO (08:09)
[2024-08-17] MEDS: FIBERCON 625 MG PO (08:09)
[2024-08-17] MEDS: FARXIGA 10 MG PO (08:09)
[2024-08-17] MEDS: FLOMAX 0.4 MG PO (08:09)
[2024-08-17] MEDS: LOW STRENGTH ASPIRIN 81 MG PO (08:10)
[2024-08-17] MEDS: HEPARIN 5000 UNITS SC ×2 (08:10→19:26)
[2024-08-17] MEDS: LASIX 20 MG PO (08:13)
[2024-08-17] MEDS: PT'S OWN INSULIN PUMP - HumaLOG 6 UNIT SC (08:18)
--- NOTE | 2024-08-17 11:10 | W.PN.ID1 ---
Date of Service
Date of Service: August 17, 2024
Today's Communication
Continue antibiotics. See below�
Assessment / Plan
Right hallux osteomyelitis.
SSTI right medial foot [place] ambulation [place]
- s/p right hallux / part. first met resection (08/14/24)
PAD
- RLE angiography, intravascular lithotripsy to PT artery, AT angioplasty + drug eluting stent. AT angioplasty + drug eluting stent. (08/13/24)
HTN
Hypercholesterolemia
IDDM (on insulin pump )
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
Valvular Disease
PAD, S/P angiogram on 01/15/24 and status post angioplasty by vascular surgeon for critically limb ischemia of LLEx )
Peripheral neuropathy
HX non-Hodgkin lymphoma
HX Melanoma
HX Pancreatic cyst (w/u pending OP)
Recommendations:
Continue with Zosyn while inpatient.
At discharge, transition to levofloxacin 750 mg p.o. daily for an additional 10 days.
Tight glucose control for optimal leukocyte function.
Monitor WBC / temps.
Await pathology.
����������������������������������������������������������
Chief Complaint
-: Other (Right hallux osteomyelitis)
Subjective / Review of Systems
Review of Systems: No Fever and No Chills
Vital Signs / Physical Exam
Vital Signs
Vital Signs
Temp Pulse Resp BP Pulse Ox
98.2 F 71 17 120/69 95
08/17/24 07:33 08/17/24 07:33 08/16/24 23:18 08/17/24 07:33 08/17/24 07:33
Physical Exam
Constitutional: No Acute Distress, Comfortable and Non-toxic
Eyes: Sclera Anicteric
Pulmonary: Non Labored
Gastrointestinal: Non Distended
Extremities: Edema and Venous Insufficiency
Wound: Other (Right foot dressed. No strikethrough.)
Neurological: Awake and Alert
Psychological: Calm
Objective Data
Lab Data
Lab Results
08/15/24 05:19
08/15/24 05:19
Estimated Creat Clear 59 ml/min 08/15/24 05:19
Total Bilirubin 0.4 mg/dl (0.2-1.3) 08/12/24 07:07
AST 20 U/L (17-59) 08/12/24 07:07
ALT 21 U/L (0-50) 08/12/24 07:07
Alkaline Phosphatase 78 U/L (38-126) 08/12/24 07:07
Most recent labs reviewed.
Micro Results:
08/14/24 16:25 Wound Culture - Preliminary
Toe Pseudo fluorescens/putida
Staphylococcus epidermidis
Gram Stain - Preliminary
08/14/24 16:25 Tissue Culture - Final
Toe Staphylococcus epidermidis
Gram Stain - Final
08/11/24 21:09 Blood Culture - Final
Blood/Venous No Growth - Final Report
08/11/24 20:18 Blood Culture - Final
Blood/Venous No Growth - Final Report
08/14/24 16:25 Anaerobic Culture - Preliminary
Toe Culture pending. Anaerobic cultures are examined after 3
days incubation. Additional information to follow.
08/12/24 01:11 MRSA Screen - Final
Nose No Methicillin Resistant Staphylococcus aureus isolated.
Imaging:
08/14/2024, x-ray right foot: The first toe and the distal aspect of the first metatarsal have been resected in the interim. The joint alignments are otherwise maintained. No acute fracture or dislocation. Vascular calcifications. Soft tissue
swelling about the forefoot. Image personally viewed.
08/11/2024 plain film (right foot): Soft tissue swelling of the medial forefoot primarily involving the first toe, with distal soft tissue wounds noted. There is demineralization at the lateral aspect of the base of the first distal phalanx, most
suggestive of acute osteomyelitis. No acute fracture or dislocation. Mild osteoarthritic changes throughout the forefoot. Please see full dictation for additional detail.
Care Review
Plan reviewed with: Physician (Hospitalist)
[2024-08-17 11:32] LABS: Glucose - Point of Care 217 mg/dl (70-99)
--- NOTE | 2024-08-17 12:41 | W.PN.HOSP.TC ---
Addendum entered and electronically signed by Tito Lopez DO 08/17/24 12:54:
Correction: Plan is to transfer to levofloxacin 750 mg daily for an additional 10 days after discharge (not ciprofloxacin)
Original Note:
Today's Communication/Plan
-
Assessment / Plan
Assessment / Plan
General: No Apparent Distress, Comfortable and Conversant
HEENT: NormoCephalic, Moist mucous membranes, Atraumatic
Respiratory: Equal expansion and Non Labored Respirations
Cardiac: Regular rhythm, heart rate around 70
GI: Soft, Non Tender, Non Distended and Normal Bowel Sounds
Musculoskeletal: No Edema, right foot with surgical dressing in place
Skin: Warm and dry
: NO Hector
Neuro: Awake, Alert, Nonfocal/grossly intact
Psych: Calm and Intact Judgment/Insight
Mr. Gomez is a 69-year-old male with a medical history of pancreatic cancer (status post Whipple), non-Hodgkin's lymphoma, CKD stage II, hypertension, enlarged prostate, IDDM (insulin pump) with retinopathy, left lower extremity ischemia, and
osteomyelitis (right hallux treated with antibiotics for the past few months) who presents now at the urging of his outpatient mixer attendant for definitive management of his right hallux osteomyelitis.
Right hallux osteomyelitis:
- Acute on chronic
- Status post angiography with anterior tibial and posterior tibial stent placement with vascular 08/13, continue aspirin and Plavix
- OR 08/14 with podiatry for amputation of the right hallux and first metatarsal, surgical cure likely achieved
- Continuing antibiotics with Zosyn and local wound care, ID recommends transitioning to ciprofloxacin 750 mg daily for an additional 10 days at time of discharge
- Tight blood glucose control, appreciate diabetic GERIATRIC CASE MANAGER assistance
- Multimodal pain control, started low-dose gabapentin which we have increased to 200 mg 3 times daily
- Nonweightbearing right foot, will need home health
- Anticipate discharge Friday 08/18
IDDM:
- Patient has insulin pump in place, continue current settings for now
- Hemoglobin A1c 9.6%
- Diabetes management GERIATRIC CASE MANAGER following
Hyperkalemia:
- Mild, resolved
CKD stage II:
- Stable
- Monitor
Hypertension:
- Currently reasonably well-controlled
- Continue home Entresto
PAD:
- History of left lower limb ischemia
- Continue DAPT and statin
Enlarged prostate:
- Continue home finasteride and tamsulosin
DVT prophylaxis: Subcu heparin
CODE STATUS: Full code
Total time spent on today's encounter was 40 minutes
Anticipated Discharge: Within 24 hours
Subjective/Interval History
-
Date of Service: August 17, 2024
Patient was seen and examined at bedside this morning. Right foot surgical wound was redressed this morning. Pain improved with opiate pain medications and gabapentin.
Objective Data
-
Vital Signs:
Vital Signs
Temp Pulse Resp BP Pulse Ox
98.2 F 71 17 120/69 97
08/17/24 07:33 08/17/24 07:33 08/16/24 23:18 08/17/24 07:33 08/17/24 08:00
I&O
08/16/24 08/17/24 08/18/24
06:59 06:59 06:59
Intake Total 900 / 900 1180 / 1180
Output Total 3050 / 3050 1900 / 1900
Balance -2150 / -2150 -720 / -720
Review of Systems
-
History Source: Patient
All other systems: Reviewed and negative
Physical Exam
-
General: No Apparent Distress
[2024-08-17 15:04] VITALS: BP 112/59
[2024-08-17] MEDS: PT'S OWN INSULIN PUMP - HumaLOG 5 UNIT SC (15:47)
[2024-08-17 17:14] LABS: Glucose - Point of Care 317 mg/dl (70-99)
[2024-08-17] MEDS: PT'S OWN INSULIN PUMP - HumaLOG 11 UNIT SC (17:21)
[2024-08-17] MEDS: DILAUDID 1 MG IV (19:49)
[2024-08-17 21:42] LABS: Glucose - Point of Care 141 mg/dl (70-99)
[2024-08-17] MEDS: PT'S OWN INSULIN PUMP - HumaLOG SC (21:43)
[2024-08-17 23:09] VITALS: BP 117/62
[2024-08-18] MEDS: ZOSYN 50 IV ×2 (03:02→09:40)
[2024-08-18] MEDS: FLUSH (NSS) 2 FLUSH IV ×3 (03:02→09:40)
[2024-08-18] MEDS: DILAUDID 1 MG IV (03:52)
[2024-08-18 06:00] VITALS: BMI 29.5
[2024-08-18 07:06] VITALS: BP 128/66
[2024-08-18 07:06] LABS: Glucose - Point of Care 113 mg/dl (70-99)
--- NOTE | 2024-08-18 07:28 | W.PN.HOSP.TC ---
Today's Communication/Plan
-
d/c
Assessment / Plan
Assessment / Plan
69-year-old male with a medical history of pancreatic cancer (status post Whipple), non-Hodgkin's lymphoma, CKD stage II, hypertension, enlarged prostate, IDDM (insulin pump) with retinopathy, left lower extremity ischemia, and osteomyelitis (right
hallux treated with antibiotics for the past few months) who presents now at the urging of his outpatient electric operator for definitive management of his right hallux osteomyelitis.
Gen: NAD, AAOx3.
Eyes: EOMI, PERRLA, no scleral icterus.
Neck: supple.
CV: RRR, +S1/S2, no m/r/g.
Resp: CTAB, no rales, wheezes, or rhonchi.
Abd: +BS, soft, NT, ND
Skin: No rashes.
Neuro: CN 2-12 intact, non-focal.
Psych: Normal mood and affect.
Right hallux osteomyelitis:
-acute on chronic
-s/p angiography with anterior tibial and posterior tibial stent placement with vascular 08/13, continue aspirin and Plavix
-s/p OR 08/14 with podiatry for amputation of the right hallux and first metatarsal, surgical cure likely achieved
-cont Zosyn and local wound care, ID recommends transitioning to ciprofloxacin 750 mg daily for an additional 10 days at time of discharge
-multimodal pain control, started low-dose gabapentin which we have increased to 200 mg 3 times daily
-NWB R foot
DM2:
-a1c 9.6%
-cont insulin pump
-diabetes CUSTOMER ORDERS CLERK following
Other problems:
Hyperkalemia, resolved
CKD2
Essential HTN: Cont Entresto
PAD: h/o L lower limb ischemia, cont ASA/Plavix/statin
BPH: Cont finasteride/tamsulosin
FULL/heparin
Total time spent on d/c = 33 min. This included today's physical exam, progress note, review of laboratory and diagnostic data, preparation of discharge documents and prescriptions, and discussions about the pt's hospital course and discharge plan
with the patient and other adjunct faculty for medical terminology involved in the patient's care.
Anticipated Discharge: Today
Subjective/Interval History
-
Date of Service: August 18, 2024
No new complaints.
Objective Data
-
Vital Signs:
Vital Signs
Temp Pulse Resp BP Pulse Ox
98.2 F 75 18 128/66 95
08/18/24 07:06 08/18/24 07:06 08/18/24 07:06 08/18/24 07:06 08/18/24 07:06
I&O
08/17/24 08/18/24 08/19/24
06:59 06:59 06:59
Intake Total 1180 / 1180 680 / 680
Output Total 1900 / 1900
Balance -720 / -720 680 / 680
[2024-08-18] MEDS: COLCHICINE 0.6 MG PO (08:11)
[2024-08-18] MEDS: PLAVIX 75 MG PO (08:11)
[2024-08-18] MEDS: CRESTOR 20 MG PO (08:11)
[2024-08-18] MEDS: FARXIGA 10 MG PO (08:11)
[2024-08-18] MEDS: NEURONTIN 200 MG PO (08:11)
[2024-08-18] MEDS: LASIX 20 MG PO (08:11)
[2024-08-18] MEDS: ENTRESTO 49 MG/51 MG 1 TAB PO (08:11)
[2024-08-18] MEDS: HEPARIN 5000 UNITS SC (08:12)
[2024-08-18] MEDS: FIBERCON 625 MG PO (08:12)
[2024-08-18] MEDS: FLOMAX 0.4 MG PO (08:12)
[2024-08-18] MEDS: PROSCAR 5 MG PO (08:12)
[2024-08-18] MEDS: COLACE 100 MG PO (08:12)
[2024-08-18] MEDS: LOW STRENGTH ASPIRIN 81 MG PO (08:12)
[2024-08-18] MEDS: THERAGRAN 1 TABLET PO (08:12)
[2024-08-18] MEDS: PT'S OWN INSULIN PUMP - HumaLOG 5 UNIT SC (08:22)
--- NOTE | 2024-08-18 08:48 | W.PN.ID1 ---
Date of Service
Date of Service: August 18, 2024
Today's Communication
Continue antibiotics. See below�
Assessment / Plan
Right hallux osteomyelitis.
SSTI right medial foot [place]
- s/p right hallux / part. first met resection (08/14/24)
PAD
- RLE angiography, intravascular lithotripsy to PT artery, AT angioplasty + drug eluting stent. AT angioplasty + drug eluting stent. (08/13/24)
HTN
Hypercholesterolemia
IDDM (on insulin pump )
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
Valvular Disease
PAD, S/P angiogram on 01/15/24 and status post angioplasty by vascular surgeon for critically limb ischemia of LLEx )
Peripheral neuropathy
HX non-Hodgkin lymphoma
HX Melanoma
HX Pancreatic cyst (w/u pending OP)
Recommendations:
Patient for discharge today.
Transition to levofloxacin 750 mg p.o. daily for an additional 10 days.
Tight glucose control for optimal leukocyte function.
����������������������������������������������������������
Chief Complaint
-: Other (Right hallux osteomyelitis)
Subjective / Review of Systems
Review of Systems: No Fever and No Chills
Vital Signs / Physical Exam
Vital Signs
Vital Signs
Temp Pulse Resp BP Pulse Ox
98.2 F 75 18 128/66 95
08/18/24 07:06 08/18/24 07:06 08/18/24 07:06 08/18/24 07:06 08/18/24 07:06
Physical Exam
Constitutional: No Acute Distress, Comfortable and Non-toxic
Eyes: Sclera Anicteric
Pulmonary: Non Labored
Extremities: Edema and Venous Insufficiency
Wound: Other (Right foot dressed with mild bloody strikethrough.)
Neurological: Awake and Alert
Psychological: Calm
Objective Data
Lab Data
Lab Results
08/15/24 05:19
08/15/24 05:19
Estimated Creat Clear 59 ml/min 08/15/24 05:19
Total Bilirubin 0.4 mg/dl (0.2-1.3) 08/12/24 07:07
AST 20 U/L (17-59) 08/12/24 07:07
ALT 21 U/L (0-50) 08/12/24 07:07
Alkaline Phosphatase 78 U/L (38-126) 08/12/24 07:07
Most recent labs reviewed.
Micro Results:
08/14/24 16:25 Anaerobic Culture - Preliminary
Toe Culture pending. Anaerobic cultures are examined after 3
days incubation. Additional information to follow.
08/14/24 16:25 Wound Culture - Preliminary
Toe Pseudo fluorescens/putida
Staphylococcus epidermidis
Gram Stain - Preliminary
08/14/24 16:25 Tissue Culture - Final
Toe Staphylococcus epidermidis
Gram Stain - Final
08/11/24 21:09 Blood Culture - Final
Blood/Venous No Growth - Final Report
08/11/24 20:18 Blood Culture - Final
Blood/Venous No Growth - Final Report
08/12/24 01:11 MRSA Screen - Final
Nose No Methicillin Resistant Staphylococcus aureus isolated.
Imaging:
08/14/2024, x-ray right foot: The first toe and the distal aspect of the first metatarsal have been resected in the interim. The joint alignments are otherwise maintained. No acute fracture or dislocation. Vascular calcifications. Soft tissue
swelling about the forefoot. Image personally viewed.
08/11/2024 plain film (right foot): Soft tissue swelling of the medial forefoot primarily involving the first toe, with distal soft tissue wounds noted. There is demineralization at the lateral aspect of the base of the first distal phalanx, most
suggestive of acute osteomyelitis. No acute fracture or dislocation. Mild osteoarthritic changes throughout the forefoot. Please see full dictation for additional detail.
--- NOTE | 2024-08-18 09:13 | CM ---
Reviewed the chart notes and spoke with the patient at the bedside. IMM reviewed. Patient asking for a walker. Attending TT request for script. PT to provide walker. Patient's significant other to provide transportation home today.
Plan: Discharge to home with [facility] services.
Please fax discharge instructions to [facility] at [phone]
--- NOTE | 2024-08-18 10:30 | W.PN.UPDATE ---
Update Note
Progress Note Update
pt seen at bedside
no f/corner cutter
had blood on bandage
vasc intact, foot warm
derm sutures intact, no edema or erythema
no soi
no pain
appears blood /hematoma popped through
no active blood now
no blood expressed
a/p s/p hallux amp/1st met resection right---stable for dc
nwb right foot
cont abx per ID
fu 2-3 days
appreciate all
bandages applied
[2024-08-18] MEDS: PT'S OWN INSULIN PUMP - HumaLOG 7 UNIT SC (13:29)
== END 2024-08-18 13:36 | disposition home health service (06) | DRG 240 ==
LOC: 2 NORTH 22:13
PROVIDERS: Internal Medicine; ADMITTING PHYSICIAN Hospitalist; ATTENDING PHYSICIAN Internal Medicine; CONSULT PHYSICIAN Podiatrist Foot Surgery; EMERGENCY PHYSICIAN Emergency Medicine; FAMILY PHYSICIAN Family Medicine; OTHER PHYSICIAN Internal Medicine Infectious Disease; OTHER PHYSICIAN Surgery Vascular Surgery
PROC: X27R3TA Dilation of Right Posterior Tibial Artery with Intraluminal Device, Everolimus-eluting Resorbable Scaffold(s), Percutaneous Approach, New Technology Group 10 (ICD-10-PCS; 2024-08-13)
PROC: X27 New Technology, Cardiovascular System, Dilation (ICD-10-PCS; 2024-08-13)
PROC: B41D1ZZ Fluoroscopy of Aorta and Bilateral Lower Extremity Arteries using Low Osmolar Contrast (ICD-10-PCS; 2024-08-13)
PROC: 04FR3ZZ Fragmentation of Right Posterior Tibial Artery, Percutaneous Approach (ICD-10-PCS; 2024-08-13)
PROC: 0QBN0Z2 Excision of Right Metatarsal, Sesamoid Bone(s) 1st Toe, Open Approach (ICD-10-PCS; 2024-08-14)
PROC: 0Y6M0Z9 Detachment at Right Foot, Partial 1st Ray, Open Approach (ICD-10-PCS; 2024-08-14)
DX: E11.52 Type 2 diabetes mellitus with diabetic peripheral angiopathy with gangrene (principal); I70.261 Atherosclerosis of native arteries of extremities with gangrene, right leg; M86.171 Other acute osteomyelitis, right ankle and foot; E11.621 Type 2 diabetes mellitus with foot ulcer; L97.519 Non-pressure chronic ulcer of other part of right foot with unspecified severity; E11.319 Type 2 diabetes mellitus with unspecified diabetic retinopathy without macular edema; E11.69 Type 2 diabetes mellitus with other specified complication; E11.40 Type 2 diabetes mellitus with diabetic neuropathy, unspecified; E11.22 Type 2 diabetes mellitus with diabetic chronic kidney disease; E11.65 Type 2 diabetes mellitus with hyperglycemia; E78.00 Pure hypercholesterolemia, unspecified; N18.2 Chronic kidney disease, stage 2 (mild); N40.0 Benign prostatic hyperplasia without lower urinary tract symptoms; I12.9 Hypertensive chronic kidney disease with stage 1 through stage 4 chronic kidney disease, or unspecified chronic kidney disease; K21.9 Gastro-esophageal reflux disease without esophagitis; E87.5 Hyperkalemia; T46.5X5A Adverse effect of other antihypertensive drugs, initial encounter; B96.5 Pseudomonas (aeruginosa) (mallei) (pseudomallei) as the cause of diseases classified elsewhere; Z96.41 Presence of insulin pump (external) (internal); Z85.72 Personal history of non-Hodgkin lymphomas; Z87.891 Personal history of nicotine dependence; Z79.82 Long term (current) use of aspirin; Z79.4 Long term (current) use of insulin
CPT/HCPCS: 73620; 73630; 75625; 75710; 80048; 80053; 82962; 83036; 85025; 85027; 87040; 87070; 87075; 87077; 87147; 87176; 87186; 87205; 88304; 88305; 88311; 93922; 93925; 97116; 97163; 97167; 97530; 99285; C1725; C1769; C1874; C1894; C9773; Q9967

== ENCOUNTER → 2024-09-11 11:07 | Outpatient (REF) | payer MEDICARE, OTHER, SELFPAY | LOC: RAD 11:07 | PROVIDERS: ATTENDING PHYSICIAN Physician Assistant; FAMILY PHYSICIAN Family Medicine; REFERRING PHYSICIAN Surgery Vascular Surgery | DX: I73.9 Peripheral vascular disease, unspecified (principal) | CPT/HCPCS: 93922; 93925 ==

== ENCOUNTER → 2024-10-02 09:43 | Outpatient (REF) | payer MEDICARE, OTHER, SELFPAY ==
[2024-10-02 14:42] LABS: PSA, Total - Diagnostic 1.05 ng/ml (0.0-4.0)
== END ==
LOC: HWRAD 09:43
PROVIDERS: ATTENDING PHYSICIAN Urology; FAMILY PHYSICIAN Family Medicine
DX: N40.1 Benign prostatic hyperplasia with lower urinary tract symptoms (principal); R33.9 Retention of urine, unspecified
CPT/HCPCS: 36415; 76770; 84153